=== PATIENT | male | born 1970 | race Caucasian/White ===

== ENCOUNTER 2023-06-17 14:09 | Emergency (ER) | payer MEDICARE, MEDICAID, SELFPAY ==
--- NOTE | ~2023-06-17 | XR_ITS ---
EXAMINATION: XR FOOT, RIGHT CLINICAL INFORMATION: Pain and swelling COMPARISON: None available. TECHNIQUE: AP, lateral, and oblique views of the right foot. FINDINGS: Diffuse soft tissue swelling about the forefoot. Bones are in normal anatomic alignment with no acute fracture or dislocation. No bony destructive lesions or erosions. No periosteal reaction. Calcaneal heel spurs at the attachment point of the plantar aponeurosis and Achilles tendon. XR/XR foot RT min 3V IMPRESSION: Diffuse soft tissue swelling but no acute bony abnormality.
--- NOTE | 2023-06-17 14:15 | ED_ITS ---
HPI - Extremity Injury (Lower) General Chief Complaint: General Medical Stated Complaint: R swollen ankle no inj Time Seen by Provider: 06/17/23 14:45 History of Present Illness HPI Narrative: patient complains of redness and swelling on the outside of the right foot that is developed over the past several days, he did have a small callus there He denies fever he denies any joint swelling, it is mildly painful to walk but he is able to walk on it no problem Related Data Previous Rx's Medication Instructions Recorded cephalexin 500 mg tablet 500 mg PO QID 7 days #28 tabs 06/17/23 doxycycline hyclate 100 mg capsule 100 mg PO BID 7 days #14 caps 06/17/23 Allergies Allergy/AdvReac Type Severity Reaction Status Date / Time No Known Allergies Allergy Verified 06/17/23 14:16 [facility] Past Medical History Source: nursing notes reviewed Social History Social History Advance Directives: No Advance Directives Information Provided: No Physical Exam Vital Signs: Vital Signs: Last Vital Signs Temp 98.0 F 06/17/23 14:17 Pulse 96 06/17/23 14:17 Resp 18 06/17/23 14:17 BP 129/71 06/17/23 14:17 Pulse Ox 97 06/17/23 14:17 O2 Del Method Room Air 06/17/23 14:17 BMI result Body Mass Index 29.2 general appearance no distress Head is normocephalic atraumatic Neck is supple Respiratory no distress Extremities full range of motion x4 including right foot the right foot on the lateral aspect of the foot has a small callus that is not fluctuant not discharging any fluid there is erythema over the lateral aspect of the foot that is warm, there is soft tissue swelling especially around the lateral aspect of the foot there is no obvious wound, there is full range of motion in toes and ankles, patient can bear weight Neuro no focal motor sensory deficits Course Course Course Narrative: RME: 53-year-old male with no significant past medical history presenting to the ED complaining of athletes foot to both feet x6 years & right lateral foot pain and swelling x 6 days. Ambulating w/limping gait. +tinea noted to toe nails on R foot. Lateral foot with swelling, erythema and ttp. NV intact XRs ordered Full HPI, ROS and PE to be performed by primary ED provider. X-ray of right foot showed soft tissue swelling but no evidence of infection or fracture or bony abnormality Patient with foot swelling and redness mostly on the lateral aspect of the foot with no evidence of abscess now no wound is treated with oral antibiotics and discharged Medications Administered Discontinued Medications Generic Name Dose Route Start Last Admin Trade Name Freq PRN Reason Stop Dose Admin Cephalexin HCl 500 mg 06/17/23 15:34 06/17/23 15:42 Cephalexin 500 Mg Capsule PO 06/17/23 15:35 500 mg ONCE ONE Administration Doxycycline Monohydrate 100 mg 06/17/23 15:35 06/17/23 15:42 Doxycycline Monohydrate 100 Mg Capsule PO 06/17/23 15:36 100 mg ONCE ONE Administration Discharge Plan Discharge Clinical Impression: Cellulitis Patient Disposition: Home, Self-Care Additional Instructions: we are treating a skin infection on her right foot with 2 antibiotics Keflex and doxycycline Return to the ER in 3 days for for wound check But should you develop worse pain and swelling, spreading redness, fever, any sign of worsening infection not controlled by antibiotic return to the ER immediately any time Prescriptions: New doxycycline hyclate 100 mg capsule 100 mg PO BID 7 Days Qty: 14 0RF cephalexin 500 mg tablet 500 mg PO QID 7 Days Qty: 28 0RF
[2023-06-17 14:17] VITALS: BP 129/71; PULSE 96; RESP 18; TEMP 36.7; O2SAT 97; BMI 29.2
[2023-06-17] MEDS: Doxycycline Monohydrate 100 MG CAPSULE PO (15:42)
[2023-06-17] MEDS: cephALEXin 500 MG CAPSULE PO (15:42)
--- NOTE | 2023-06-17 15:51 | PC.NURSE ---
pt medicated per MAR
== END 2023-06-17 16:04 | disposition home or self-care (01) ==
PROVIDERS: Emergency Provider Emergency Medicine
DX: L03.115 Cellulitis of right lower limb (principal); M25.471 Effusion, right ankle; M79.671 Pain in right foot; B35.3 Tinea pedis
CPT/HCPCS: 73630; 99282; 99283

== ENCOUNTER 2023-11-01 18:58 | Emergency (ER) | payer MEDICARE, MEDICAID, SELFPAY ==
[2023-11-01 19:24] VITALS: BP 120/58; PULSE 73; RESP 16; TEMP 37.1; O2SAT 99; BMI 29.1
--- NOTE | 2023-11-01 19:32 | ED_ITS ---
HPI - Extremity Problem General Chief complaint: Extremity Problem Stated complaint: right foot swollen,red and painful Time Seen by Provider: 11/01/23 19:25 Source: patient Mode of arrival: ambulatory Limitations: no limitations History of Present Illness HPI Narrative: 53-year-old male presents stating that he has an infection in his foot for the past 4 days. No known trauma. Reports redness, pain overlying the right big toe. No fevers, chills, numbness or tingling. He states this has happened to him before. Patient denies chest pain, shortness of breath, nausea, vomiting, abdominal pain, numbness, tingling, headache, vision changes, dizziness or weakness. No history of DVT or PE. No history of gout. Related Data Previous Rx's Medication Instructions Recorded cephalexin 500 mg tablet 500 mg PO QID 7 days #28 tabs 06/17/23 doxycycline hyclate 100 mg capsule 100 mg PO BID 7 days #14 caps 06/17/23 cephalexin 500 mg tablet 500 mg PO Q6H 10 days #40 tabs 11/01/23 doxycycline hyclate 100 mg capsule 100 mg PO BID 10 days #20 caps 11/01/23 prednisone 20 mg tablet 40 mg (2 x 20 mg) PO DAILY 5 days 11/01/23 #10 tabs Allergies Allergy/AdvReac Type Severity Reaction Status Date / Time No Known Allergies Allergy Verified 11/01/23 19:23 Review of Systems Review of Systems: Yes all other systems are reviewed and are negative [facility] Past Medical History Attestation statement: The following information was validated with the patient. Source: old records reviewed and nursing notes reviewed Social History Social History Advance Directives: No Advance Directives Information Provided: No Physical Exam Vital Signs: Vital Signs: Last Vital Signs Temp 98.8 F 11/01/23 19:24 Pulse 73 11/01/23 19:24 Resp 16 11/01/23 19:24 BP 120/58 L 11/01/23 19:24 Pulse Ox 99 11/01/23 19:24 O2 Del Method Room Air 11/01/23 19:24 BMI result Body Mass Index 29.1 vss Appearance: Alert.? Oriented X3.? No acute distress.? Head: Normocephalic, atraumatic, no step-offs or deformities Eyes: Pupils equal, round and reactive to light.? CVS: Pulses normal.? Respiratory: No respiratory distress. Skin: Skin warm and dry.? Normal skin color.? Normal skin turgor.? Extremities: No lower extremity edema.? No calf ttp. 5/5 strength to bilateral upper and lower extremities erythema and warmth overlying the right great toe, and the medial aspect of foot. 2+ dorsalis pedis, anterior tibialis and posterior tibialis pulses equal bilateral. Full range of motion to toes and ankles bilaterally. Normal sensation distally. No footdrop. No overt edema. Back: No midline tenderness, no C-spine tenderness, full range of motion, no CVA tenderness bilaterally Neuro: Oriented X 3.? No motor deficit.? No sensory deficit. AMbulatory steady gait normal cooridnation Medical Decision Making Medical Decision Making MDM Narrative: 53-year-old male presents convinced that he has an infection to his right foot. It started 4 days ago. No fevers, chills, numbness or tingling. Physical exam significant for erythema and warmth overlying the right great toe, and the medial aspect of foot. 2+ dorsalis pedis, anterior tibialis and posterior tibialis pulses equal bilateral. Full range of motion to toes and ankles bilaterally. Normal sensation distally. No footdrop. No overt edema. History and physical exam concerning for cellulitis versus gout. Unlikely arterial or venous occlusion. No signs of necrotizing infection, erysipelas. Unlikely acute threat to limb or neurovascular compromise Plan discharge patient from triage with antibiotics and prednisone as there is a likely diagnosis of gout superimposed. Differential Diagnosis Differential Diagnoses: The differential diagnosis associated with the presentation includes History and physical exam concerning for cellulitis versus gout. Unlikely arterial or venous occlusion. No signs of necrotizing infection, erysipelas. Unlikely acute threat to limb or neurovascular compromise Admission/Observation Consideration of admission/observation: Escalation of care including admission/observation considered Unlikely Tests considered The following testing was considered but not selected: No indication for x-ray no trauma, unlikely osteomyelitis. Prescription Management I considered prescription management with: Antibiotic Social Determinants Patient?s care significantly limited by Social Determinants of Health including: Other Social Determinant of Health Discharge Plan Discharge Clinical Impression: Cellulitis Patient Disposition: Home, Self-Care Instructions: Cellulitis (ED) Additional Instructions: Take your medications as prescribed. If you were prescribed antibiotics today, it is important that you take your medication to their entirety, do not skip any doses, do not finish them early. Follow-up with your primary care provider this week. Return to the emergency department with new or worsening symptoms. Such as fevers, chills, chest pain, shortness of breath, nausea, vomiting, dizziness, headache, vision changes, lethargy In case of emergency call 911 Prescriptions: New cephalexin 500 mg tablet 500 mg PO Q6H 10 Days Qty: 40 0RF doxycycline hyclate 100 mg capsule 100 mg PO BID 10 Days Qty: 20 0RF prednisone 20 mg tablet 40 mg PO DAILY 5 Days Qty: 10 0RF No Action doxycycline hyclate 100 mg capsule 100 mg PO BID 7 Days Qty: 14 0RF cephalexin 500 mg tablet 500 mg PO QID 7 Days Qty: 28 0RF Referrals: Physician,None [Primary Care Provider] - 2 days
[2023-11-01 19:39] VITALS: BP 120/58; PULSE 73; RESP 16; TEMP 37.1; O2SAT 99
== END 2023-11-01 19:40 | disposition home or self-care (01) ==
PROVIDERS: Emergency Provider Internal Medicine
DX: L03.115 Cellulitis of right lower limb (principal); R60.0 Localized edema; Z79.899 Other long term (current) drug therapy
CPT/HCPCS: 99282; 99283

== ENCOUNTER 2024-01-14 15:39 | Inpatient (IN) | payer MEDICARE, MEDICAID, SELFPAY ==
[2024-01-14 16:15] VITALS: BMI 26.6
[2024-01-14 16:32] LABS: MANUAL DIFF FLAG NO
[2024-01-14 16:34] LABS: Basophils Percent Auto 0.5 % (0-2); Eosinophils Absolute Auto 0.2 X10*3/uL (0.0-0.4); Eosinophils Percent Auto 2.6 % (0-4); Hematocrit 36.7 % (42.0-52.0); Hemoglobin 11.9 g/dl (14.0-18.0); Imm Gran Abs Auto 0.02 X10*3/uL (0.00-0.03); Imm Gran Pct Auto 0.3 % (0.0-0.4); Lymphocytes Absolute Auto 1.6 X10*3/uL (1.2-4.9); Lymphocytes Percent Auto 25.9 % (20-40); Mean Corpuscular HGB Conc 32.4 g/dl (31.0-36.0); Mean Corpuscular Hemoglobin 27.5 pg (27.0-33.0); Mean Corpuscular Volume 84.8 fL (80.0-98.0); Mean Platelet Volume 10.6 fL (9.4-12.4); Monocytes Absolute Auto 0.5 X10*3/uL (0.1-1.2); Monocytes Percent Auto 8.7 % (2-11); Neutrophils Absolute Auto 3.8 x10*3/uL (2.0-8.3); Platelet Count 214 X10*3/uL (160-400); Red Blood Count 4.33 X10*6/uL (4.60-5.80); Red Cell Distribution Width 15.2 % (11.0-16.0); White Blood Count 6.1 X10*3/uL (4.8-10.8)
[2024-01-14 16:39] VITALS: BP 149/76; PULSE 60; RESP 17; TEMP 36.8; O2SAT 99
[2024-01-14 16:45] VITALS: BP 149/76; PULSE 60; RESP 17; TEMP 36.8; O2SAT 99
--- NOTE | 2024-01-14 16:48 | PC.NURSE ---
Patient self presented to [facility] ED on a voluntary basis seeking assessment due to suicidal ideations with method of hanging self. The patient also reports heavy cocaine use with yesterday 01/13/24 being the last day he used. The patient states, I have money and I could go buy more coke but I'd rather get help . The patient also reports getting methadone from [facility] with his last dose being this morning. Methadone verification pending at this time. Upon assessment the patient denies auditory and visual hallucinations as well as denies homicidal ideations. The patient is calm, cooperative and pleasant with staff. The patient presents unkempt and disheveled. Thought process is organized and the patient answers assessment questions logically. Patient was changed over into hospital attire and belongings were inventoried by security and optical manufacturing technician. Belongings have been locked up. Patient was oriented to the unit and shown his room.
[2024-01-14 16:56] LABS: Alanine Aminotransferase 18 U/L (0-40); Albumin Level 4.2 g/dL (3.5-5.0); Alkaline Phosphatase 99 U/L (39-117); Anion Gap 13 (12-20); Aspartate Amino Transferase 26 U/L (5-37); Bilirubin Total 0.4 mg/dL (0.0-1.0); Blood Urea Nitrogen 12 mg/dL (9-16); Calcium 9.8 mg/dL (8.4-10.2); Carbon Dioxide 29 mmol/L (22-29); Chloride 105 mmol/L (96-108); Creatinine Clr Calc Pharmacy 84.7; Estimated Glomerular Filt Rate > 60; Ethanol < 10 mg/dL; Glucose Random 71 mg/dL (60-115); Potassium 2.9 mmol/L (3.3-5.1); Sodium 144 mmol/L (135-145); Total Protein 7.5 g/dL (6.5-8.0)
--- NOTE | 2024-01-14 16:59 | ECG_ITS ---
Test Reason : LOW POTASIUM Blood Pressure : / mmHG Vent. Rate : 052 BPM Atrial Rate : 052 BPM P-R Int : 112 ms QRS Dur : 106 ms QT Int : 502 ms P-R-T Axes : 076 077 067 degrees QTc Int : 466 ms Sinus bradycardia with Premature atrial complexes Otherwise normal ECG No previous ECGs available Referred By: Sanam Avalos Electronically Signed By:DIONTE DC MD
[2024-01-14] MEDS: Potassium Chloride Packet 20 MEQ PACKET 40 MEQ PO (17:15)
--- NOTE | 2024-01-14 17:25 | ED.PSYCH ---
HPI - Psych General Chief Complaint: Psychiatric Symptoms Stated Complaint: psych eval for hermila Time Seen by Provider: 01/14/24 16:01 Source: patient Mode of arrival: ambulatory Limitations: no limitations History of Present Illness HPI Narrative: Patient is a 53-year-old male who presents emergency department reporting suicidal ideations with a plan to hang himself. Denies any homicidal ideations, denies current auditory or visual hallucinations. He does admit to polysubstance use, states he has been using intranasal cocaine and taking his methadone. He denies any physical complaints at this time Related Data Home Medications ?Medication ?Instructions ?Recorded ?Confirmed diazepam 5 mg tablet 5 mg PO DAILY PRN anxiety 01/14/24 01/14/24 fluoxetine 40 mg capsule 40 mg PO QPM 01/14/24 01/14/24 olanzapine 20 mg tablet 20 mg PO DAILY 01/14/24 01/14/24 methadone 10 mg tablet 100 mg PO DAILY 01/15/24 01/15/24 Allergies Allergy/AdvReac Type Severity Reaction Status Date / Time No Known Allergies Allergy Verified 01/14/24 16:20 Review of Systems Review of Systems: Yes all other systems are reviewed and are negative [facility] Past Medical History Attestation statement: The following information was validated with the patient. Source: old records reviewed Social History Social History Smoked in Last 30 Days: Yes Use of substances other than those prescribed or required for medical reasons: Yes Substance Use Type: Crack/Cocaine Substance Use Frequency: Daily Last Used Substance: Days (ago) Any prior treatment program specific to substance use: No Advance Directives: No Advance Directives Information Provided: No Do you have a plan to hurt others: No Plan Physical Exam Vital Signs: Vital Signs: Last Vital Signs Temp 97.7 F 01/15/24 06:04 Pulse 54 01/15/24 06:04 Resp 18 01/15/24 06:04 BP 158/71 H 01/15/24 06:04 Pulse Ox 100 01/15/24 06:04 O2 Del Method Room Air 01/15/24 06:04 BMI result Body Mass Index 26.6 Appearance: Alert.?Oriented to person, place and time. No acute distress.?Normal affect. Eyes: Pupils equal, round and reactive to light.? ENT: Pharynx normal.?? Neck: Normal inspection.? Neck supple.?? CVS: Heart sounds normal. Bradycardia? Pulses normal.?? Respiratory: No respiratory distress.? Lung sounds clear to auscultation bilaterally?? Abdomen: Soft and non-tender. Normoactive bowel sounds. Skin: Skin warm and dry.? Normal skin color.? Extremities: No lower extremity edema.? Neuro: Moves all extremities spontaneously. Sensation intact bilaterally. CN II-XII intact. No focal neuro deficits. Ambulates with normal steady gait. Course Reevaluation(s) Reevaluation #1: Potassium placement completed, 4.1 on repeat with no additional electrolyte derangement no MYRON. At this time feel that he is medically cleared and can have care team evaluation for disposition planning given suicidal ideations with a plan Time: 23:16 Reevaluation #2: Physician observation continued. VS stable, no acute avents overnight, inpatient bed search, K repleted and normal. [facility] 1040am 01/15/24 Medications Administered Discontinued Medications Generic Name Dose Route Start Last Admin Trade Name Freq PRN Reason Stop Dose Admin Sodium Chloride 1,000 mls @ 999 mls/hr 01/14/24 17:00 01/14/24 22:47 Ns IV 01/14/24 18:00 Infused .Q1H1M [facility] Infusion Potassium Chloride 10 meq in 100 mls @ 100 mls/hr 01/14/24 17:00 01/14/24 23:05 Potassium Chloride/H20 IV 01/14/24 20:59 Infused Q1H [facility] Infusion Methadone HCl 100 mg 01/15/24 06:56 01/15/24 07:12 Methadone Hcl 20 Mg/2 Ml Oral.Conc PO 01/15/24 06:57 100 mg ONCE ONE Administration Potassium Chloride 40 meq 01/14/24 16:58 01/14/24 17:15 Potassium Chloride Packet 20 Meq Packet PO 01/14/24 16:59 40 meq ONCE ONE Administration Medical Decision Making Medical Decision Making MDM Narrative: Patient is a 53-year-old male who presents emergency department for evaluation of suicidal ideations with a plan. Patient is without any physical complaints. Serum labs were obtained for medical clearance; CBC is without leukocytosis, normocytic anemia that does not meet transfusion area, no thrombocytopenia. Chemistries revealing hypokalemia of 2.9, magnesium within normal range at 2.0. He admits to poor p.o. intake, stating he has only consumed a bag of potato chips over the past 3 days, denies nausea vomiting diarrhea. Patient to receive potassium chloride 40 mEq IV, 40 mEq p.o., and EKG to exclude acute changes. Otherwise no further electrolyte derangement, no MYRON, LFTs within normal range. Alcohol level nondetectable. ALARCON positive for methadone fentanyl and cocaine. He is noted to be bradycardic at rest, increases to 70s-80s upon movement and during ambulation; asymptomatic bradycardia. Differential Diagnosis Differential Diagnoses: The differential diagnosis associated with the presentation includes (Suicidal ideations, polysubstance use disorder, dehydration, electrolyte derangement,) Admission/Observation Consideration of admission/observation: Escalation of care including admission/observation considered Lab Data MDM Lab Attestation statement: I reviewed the patient's lab results. (See narrative above) 01/14/24 16:26 01/14/24 22:14 Labs: Lab Results 01/14/24 01/14/24 01/14/24 Range/Units 16:26 17:21 22:14 WBC 6.1 (4.8-10.8) X10*3/uL RBC 4.33 L (4.60-5.80) X10*6/uL Hgb 11.9 L (14.0-18.0) g/dl Hct 36.7 L (42.0-52.0) % MCV 84.8 (80.0-98.0) fL MCH 27.5 (27.0-33.0) pg MCHC 32.4 (31.0-36.0) g/dl RDW 15.2 (11.0-16.0) % Plt Count 214 (160-400) X10*3/uL MPV 10.6 (9.4-12.4) fL Immature Gran % (Auto) 0.3 (0.0-0.4) % Neut % (Auto) 62.0 (45-73) % Lymph % (Auto) 25.9 (20-40) % [place] % (Auto) 8.7 (2-11) % Eos % (Auto) 2.6 (0-4) % Baso % (Auto) 0.5 (0-2) % Lymph # (Auto) 1.6 (1.2-4.9) X10*3/uL [place] # (Auto) 0.5 (0.1-1.2) X10*3/uL Eos # (Auto) 0.2 (0.0-0.4) X10*3/uL Baso # (Auto) 0.0 (0.0-0.2) X10*3/uL Abs Immat Gran (auto) 0.02 (0.00-0.03) X10*3/uL Absolute Neuts (auto) 3.8 (2.0-8.3) x10*3/uL Absolute Nucleated RBC 0.000 (0.0-0.012) X10*3/uL Nucleated RBC % (auto) 0.0 (0.0-0.2) /100WBC Sodium 144 143 (135-145) mmol/L Potassium 2.9 L* 4.1 D (3.3-5.1) mmol/L Chloride 105 110 H (96-108) mmol/L Carbon Dioxide 29 24 (22-29) mmol/L Anion Gap 13 13 (12-20) BUN 12 11 (9-16) mg/dL Creatinine 1.02 0.92 (0.5-1.4) mg/dL Estim Creat Clear Calc 84.7 93.9 Estimated GFR > 60 > 60 Random Glucose 71 93 (60-115) mg/dL Calcium 9.8 8.9 D (8.4-10.2) mg/dL Magnesium 2.0 (1.6-2.6) mg/dL Total Bilirubin 0.4 (0.0-1.0) mg/dL AST 26 (5-37) U/L ALT 18 (0-40) U/L Alkaline Phosphatase 99 (39-117) U/L Total Protein 7.5 (6.5-8.0) g/dL Albumin 4.2 (3.5-5.0) g/dL Urine Color Dark Yellow Urine Appearance Clear Urine pH 5.5 (5.0-9.0) Ur Specific [place] >= 1.030 H (1.005-1.025) Urine Protein Trace (Neg-Trace) mg/dL Urine Glucose (UA) Negative (Negative) mg/dL Urine Ketones Negative (Negative) mg/dL Urine Blood Negative (Negative) Urine Nitrite Negative (Negative) Ur Leukocyte Esterase Negative (Negative) Urine Opiates Screen Not Detected (Not Detect) Ur Buprenorphine Scrn Not Detected (Not Detect) ng/mL Ur Oxycodone Screen Not Detected (Not Detect) ng/mL Urine Methadone Screen Positive H (Not Detect) ng/mL Urine Fentanyl Screen POSITIVE H (Not Detect) Ur Barbiturates Screen Not Detected (Not Detect) Ur Phencyclidine Scrn Not Detected (Not Detect) Ur Amphetamines Screen Not Detected (Not Detect) U Benzodiazepines Scrn Not Detected (Not Detect) Urine Cocaine Screen POSITIVE H (Not Detect) U Marijuana (THC) Screen Not Detected (Not Detect) Ethyl Alcohol < 10 mg/dL Independent Interpretation I performed an independent interpretation of an: EKG Interpretation: Rate: 52 Rhythm:? Sinus bradycardia with PACs Normal P waves.? Normal MERARI.?? Normal QRS complex.?? ST T wave :??No ST elevation, no ST depression, no T-wave inversion qTC:466 prior studies:? Not available for review The study has been interpreted contemporaneously by me. Discharge Plan Discharge Clinical Impression: Suicidal ideation, Acute hypokalemia Patient Disposition: Still a Patient Prescriptions: No Action fluoxetine 40 mg capsule 40 mg PO QPM olanzapine 20 mg tablet 20 mg PO DAILY diazepam 5 mg tablet 5 mg PO DAILY PRN (Reason: anxiety) methadone 10 mg Tablet 100 mg PO DAILY Interventions: [place]-Suicide Risk Severity Scale Last Done: 01/14/24 16:46 Print Language: Czech
[2024-01-14 17:35] LABS: Appearance Urine Clear; Color Urine Dark Yellow; Glucose Urine UA Negative (Negative); Leukocyte Esterase Urine Negative (Negative); Nitrite Urine Negative (Negative); PH 5.5 (5.0-9.0); Specific Gravity - Urine >= 1.030 (1.005-1.025); Urine Blood Negative (Negative); Urine Ketones Negative (Negative); Urine Protein Trace mg/dL (Neg-Trace)
--- NOTE | 2024-01-14 17:36 | PC.NURSE ---
Nursing Communication Patient was transfered to main ED from Psychiatric due to critical potassium level. Report was given face to face with RN prior to transfer. Oral potassium administered and EKG completed prior to transfer.
[2024-01-14] MEDS: Potassium Chloride/H20 10 MEQ/100 ML PIGGYBACK 100 MEQ IV ×4 (17:54→21:57)
[2024-01-14] MEDS: 0.9 % Sodium Chloride 1,000 ML 999 ML IV (17:58)
[2024-01-14 18:02] LABS: Amphetamine Screen Urine Not Detected (Not Detect); Barbiturates, Urine Not Detected (Not Detect); Benzodiazepines Screen Urine Not Detected (Not Detect); Buprenorphine Scr Not Detected (Not Detect); Cannabinoid Screen Urine Not Detected (Not Detect); Cocaine Screen Urine POSITIVE (Not Detect); Fentanyl, urine POSITIVE (Not Detect); Methadone Screen, Urine Positive (Not Detect); Opiate Screen Urine Not Detected (Not Detect); Oxycodone Screen Urine Not Detected (Not Detect); Phencyclidine Screen Urine Not Detected (Not Detect)
[2024-01-14 19:21] VITALS: BP 130/73; PULSE 47; RESP 15; TEMP 36.8; O2SAT 100
--- NOTE | 2024-01-14 19:47 | PC.NURSE ---
this rn assumed care of pt, pt resting in stretcher, no acute distress noted. second bag of potassium begun at this time. 1:1 sitter at bedside.
[2024-01-14 22:31] LABS: Anion Gap 13 (12-20); Blood Urea Nitrogen 11 mg/dL (9-16); Calcium 8.9 mg/dL (8.4-10.2); Carbon Dioxide 24 mmol/L (22-29); Chloride 110 mmol/L (96-108); Creatinine Clr Calc Pharmacy 93.9; Estimated Glomerular Filt Rate > 60; Glucose Random 93 mg/dL (60-115); Potassium 4.1 mmol/L (3.3-5.1); Sodium 143 mmol/L (135-145)
--- NOTE | 2024-01-14 23:06 | PC.NURSE ---
pt requesting food and drink, per provider it is okay. pt given sandwich and gingerale
--- NOTE | 2024-01-14 23:16 | PC.NURSE ---
report given to Lynnette in the POD
--- NOTE | 2024-01-14 23:58 | PC.NURSE ---
iv access removed at this time.
[2024-01-15 06:04] VITALS: BP 158/71; PULSE 54; RESP 18; TEMP 36.5; O2SAT 100
--- NOTE | 2024-01-15 06:23 | HE.PHANOTE ---
RE: METHADONE DOSING Last dose of 100 mg was given on 01/14/24 @0635 at [facility] per Karissa Yates RN.
--- NOTE | 2024-01-15 07:00 | PC.NURSE ---
Assumed care of patient at 0645. Patient is observed resting quietly in their bed. No signs of distress observed. Breathing is even and unlabored. Will continue plan of care.
[2024-01-15] MEDS: methADONE HCl 20 MG/2 ML ORAL.CONC 100 MG PO (07:12)
[2024-01-15] MEDS: OLANZapine 10 MG TABLET 20 MG PO (13:18)
[2024-01-15] MEDS: FLUoxetine HCl 20 MG CAPSULE 40 MG PO (13:18)
[2024-01-15 15:00] VITALS: BP 132/66; PULSE 54; RESP 16; TEMP 37.1; O2SAT 100; BMI 23.9
--- NOTE | 2024-01-15 17:26 | PC.ADMIT ---
Pt is a 53 y/o Czech speaking male admitted to from [facility] POD on a CV after self presenting to [facility] ED for SI with plan to hang himself. Pt is not previously known to CARE team. On arrival to unit pt stated he was informed he was going to [facility], and stated that he was informed in the ED that he would transfer there when a bed was available. Pt reported he receives his methadone at [facility] and stated his providers are there. Pt agreeable to signing in on a voluntary status after meeting with provider. Safety/skin check performed on arrival to the unit by and Latia TEAGUE. Pt polite and cooperative with safety check, however stated he was too tired to participate in admission assessment. Pt was oriented to the unit, given toiletries, completed a menu, and then returned to his room and fell asleep. Information taken from ED report. Pt was born and raised in [place], currently single, and lives alone. Pt?s mother 2 years ago, at which time he began to use Crack/Cocaine. Since that time pt has been using more and reported he uses Cocaine and Opioids, and is currently on Methadone. December was the 2 year anniversary of his mother?s and pt reported in ED he was ?high the entire month of December?. In ED pt was positive for Methadone, Fentanyl and Cocaine. As of recently pt has been spending time in the [place] using substances. Pt reported to ED that prior to arrival he had experienced VH in the [place] of someone or something watching him in the [place] and moving about from a distance. Pt also reported increased racing thoughts and poor sleep. Last reported psych admission was 10 years ago at [facility]. In ED pt had a Potassium of 2.9 on 01/13. Pt was given PO and IV replacement and repeat level was 4.1. Methadone was verified in ED at 100 mg and given in ED this morning.
[2024-01-16 08:00] VITALS: BP 129/69; PULSE 51; RESP 16; TEMP 37.1; O2SAT 100
[2024-01-16] MEDS: OLANZapine 10 MG TABLET 20 MG PO (08:20)
[2024-01-16] MEDS: methADONE HCl 10 MG TABLET 100 MG PO (08:21)
[2024-01-16 08:40] LABS: Estimated Average Glucose 108 mg/dL; Hemoglobin A1c % 5.4 % (<6.0)
[2024-01-16 08:50] LABS: Cholesterol 116 mg/dL (<200); HDL Cholesterol 41 mg/dL (>40); LDL Cholesterol Calculated 54 mg/dL (<100); Triglycerides 107 mg/dL (<150)
[2024-01-16 09:04] LABS: Free T4 (Free Thyroxine) 0.92 ng/dL (0.71-1.85); Thyroid Stimulating Hormone 2.16 uIU/mL (0.32-4.0)
[2024-01-16 09:15] LABS: Folate 4.8 ng/mL (> or = 4.0); Vitamin B12 258 pg/mL (200-900)
--- NOTE | 2024-01-16 09:46 | HO.PSYADMNOT ---
HPI Date of Service: 01/16/24 Chief Complaint: SI Sources of Information: patient interviewed, chart reviewed and crisis/core team assessment reviewed HPI Subjective Notes: Montes Warning and Conditional Voluntary Narrative: Patient is a 53-year-old male with history of schizoaffective disorder, depressive type, severe cocaine use disorder, dependence, opioid dependence on methadone, who presents for worsening depression and SI in the face of recently losing his housing, being off medication and substance abuse. Patient reports that on his medications, he does well. Patient reports that for the several weeks he has been partying using IV cocaine, during which time he stopped taking his medication, saying he did not feel like taking it. Patient reports not eating much since just focused on substance abuse and has lost about 60 lb. Until recently He has been living at his sister's however house got sold and for the past 4 days he has been homeless, [place]. Patient reports auditory hallucinations worsened as his depression and he started feeling suicidal so he self presented. Patient restarted on medications in the ED and says voices are now gone. Denies manic behaviors; reports sober from opiates for about a month; no alcohol abuse. Past Psychiatric History: Past psychiatric admission about 10 years ago Reports Prozac and Zyprexa treat his symptoms very well Medical Evaluation Reviewed: Yes [facility] Medical History (Updated 01/17/24 @ 19:10 by Christian Raymond MD) Opioid use disorder Cocaine use disorder Schizoaffective disorder, depressive type Family History: Deferred Social History: Patient now homeless; was living at his sister's but the house got sold Substance History: Started using cocaine about 2 years ago after his mother and has been using IV cocaine for the past several weeks; opioid addiction however sober for the past 4 weeks on methadone Trauma History: Deferred Diagnostics Vital Signs (24Hr): Vital Signs - 24 hr 01/15/24 15:00 Temperature 98.7 F Pulse Rate 54 Respiratory Rate 16 Blood Pressure 132/66 Pulse Oximetry 100 Oxygen Delivery Method Room Air BMI result Body Mass Index 23.9 Labs 01/14/24 16:26 01/14/24 22:14 Labs: Laboratory Results - last 48 hr 01/14/24 01/14/24 01/14/24 16:26 17:21 22:14 WBC 6.1 RBC 4.33 L Hgb 11.9 L Hct 36.7 L MCV 84.8 MCH 27.5 MCHC 32.4 RDW 15.2 Plt Count 214 MPV 10.6 Immature Gran % (Auto) 0.3 Neut % (Auto) 62.0 Lymph % (Auto) 25.9 [place] % (Auto) 8.7 Eos % (Auto) 2.6 Baso % (Auto) 0.5 Lymph # (Auto) 1.6 [place] # (Auto) 0.5 Eos # (Auto) 0.2 Baso # (Auto) 0.0 Abs Immat Gran (auto) 0.02 Absolute Neuts (auto) 3.8 Absolute Nucleated RBC 0.000 Nucleated RBC % (auto) 0.0 Sodium 144 143 Potassium 2.9 L* 4.1 D Chloride 105 110 H Carbon Dioxide 29 24 Anion Gap 13 13 BUN 12 11 Creatinine 1.02 0.92 Estim Creat Clear Calc 84.7 93.9 Estimated GFR > 60 > 60 Random Glucose 71 93 Estimat Average Glucose Hemoglobin A1c % Calcium 9.8 8.9 D Magnesium 2.0 Total Bilirubin 0.4 AST 26 ALT 18 Alkaline Phosphatase 99 Total Protein 7.5 Albumin 4.2 Triglycerides Cholesterol LDL Cholesterol, Calc HDL Cholesterol Vitamin B12 Folate TSH Free T4 Urine Color Dark Yellow Urine Appearance Clear Urine pH 5.5 Ur Specific [place] >= 1.030 H Urine Protein Trace Urine Glucose (UA) Negative Urine Ketones Negative Urine Blood Negative Urine Nitrite Negative Ur Leukocyte Esterase Negative Urine Opiates Screen Not Detected Ur Buprenorphine Scrn Not Detected Ur Oxycodone Screen Not Detected Urine Methadone Screen Positive H Urine Fentanyl Screen POSITIVE H Ur Barbiturates Screen Not Detected Ur Phencyclidine Scrn Not Detected Ur Amphetamines Screen Not Detected U Benzodiazepines Scrn Not Detected Urine Cocaine Screen POSITIVE H U Marijuana (THC) Screen Not Detected Ethyl Alcohol < 10 01/16/24 08:16 WBC RBC Hgb Hct MCV MCH MCHC RDW Plt Count MPV Immature Gran % (Auto) Neut % (Auto) Lymph % (Auto) [place] % (Auto) Eos % (Auto) Baso % (Auto) Lymph # (Auto) [place] # (Auto) Eos # (Auto) Baso # (Auto) Abs Immat Gran (auto) Absolute Neuts (auto) Absolute Nucleated RBC Nucleated RBC % (auto) Sodium Potassium Chloride Carbon Dioxide Anion Gap BUN Creatinine Estim Creat Clear Calc Estimated GFR Random Glucose Estimat Average Glucose 108 Hemoglobin A1c % 5.4 Calcium Magnesium 2.0 Total Bilirubin AST ALT Alkaline Phosphatase Total Protein Albumin Triglycerides 107 Cholesterol 116 LDL Cholesterol, Calc 54 HDL Cholesterol 41 Vitamin B12 258 Folate 4.8 TSH 2.16 Free T4 0.92 Urine Color Urine Appearance Urine pH Ur Specific [place] Urine Protein Urine Glucose (UA) Urine Ketones Urine Blood Urine Nitrite Ur Leukocyte Esterase Urine Opiates Screen Ur Buprenorphine Scrn Ur Oxycodone Screen Urine Methadone Screen Urine Fentanyl Screen Ur Barbiturates Screen Ur Phencyclidine Scrn Ur Amphetamines Screen U Benzodiazepines Scrn Urine Cocaine Screen U Marijuana (THC) Screen Ethyl Alcohol Meds/Allergies Meds Home Medications ?Medication ?Instructions ?Recorded ?Confirmed ?Type diazepam 5 mg tablet 5 mg PO DAILY PRN anxiety 01/14/24 01/14/24 History fluoxetine 40 mg capsule 40 mg PO QPM 01/14/24 01/14/24 History olanzapine 20 mg tablet 20 mg PO DAILY 01/14/24 01/14/24 History methadone 10 mg tablet 100 mg PO DAILY 01/15/24 01/15/24 History Allergies Allergies Allergy/AdvReac Type Severity Reaction Status Date / Time No Known Allergies Allergy Verified 01/14/24 16:20 Mental Status Exam Mental Status Exam Narrative: Pt is alert and oriented; behavior is quiet, cooperative, calm; patient is not in distress; dressed in casual attire, disheveled; mood is described as depressed and affect congruent, downcast; eye contact appropriate; Speech is little slow, a little soft; psychomotor retardation present; thought process is organized and goal directed; Thought content is on tx; otherwise pertinent to relevant topics and without any delusional content, paranoid ideations or grandiosity; SI resolved; no HI. Reports AH resolved and currently There is no evidence of perceptual disturbance. Patients insight and judgment impaired Assessment & Plan Assessment & Plan (1) Schizoaffective disorder, depressive type: Status: Acute Code(s): F25.1 - Schizoaffective disorder, depressive type (2) Cocaine use disorder: Status: Acute Code(s): F14.10 - Cocaine abuse, uncomplicated (3) Opioid use disorder: Status: Acute Code(s): F11.90 - Opioid use, unspecified, uncomplicated Plan Patient is a 53-year-old male with history of schizoaffective disorder, depressive type, severe cocaine use disorder, dependence, opioid dependence on methadone, who presents for worsening depression and SI in the face of recently losing his housing, being off medication and substance abuse. Patient reports that on his medications, he does well. Patient reports that for the several weeks he has been partying using IV cocaine, during which time he stopped taking his medication, saying he did not feel like taking it. Patient reports not eating much since just focused on substance abuse and has lost about 60 lb. Until recently He has been living at his sister's however house got sold and for the past 4 days he has been homeless, [place]. Patient reports auditory hallucinations worsened as his depression and he started feeling suicidal so he self presented. Patient restarted on medications in the ED and says voices are now gone. Denies manic behaviors; reports sober from opiates for about a month; no alcohol abuse. Formulations/clinical reasoning: Patient still depressed but SI resolved; AH now resolved since he is back on Zyprexa. Patient says that both fluoxetine and Zyprexa are sufficient for his symptoms; will continue them Plan: CV Q 15 minute checks Continue recently restarted fluoxetine 40 mg daily Continue recently restarted Zyprexa 20 mg q.h.s. Continue methadone PRNs Dispo planning; patient says he is interested in attending a program Patient educated on: diagnosis, medication risk/benefits and substance abuse Informed Consent: understands Reason for continued inpatient stay Substantial Risk for: rapid decompensation Statement Statement: I have reviewed the history and physical and performed a pertinent examination on my patient. No changes have occurred unless specified. If the History and Physical was not performed prior to admission, the Hospitalist's service will be consulted for completing the admission physical. Time Spent With Patient Time: Total time managing care of this patient today ____ minutes.
[2024-01-16 20:00] VITALS: BP 102/51; PULSE 56; RESP 16; TEMP 36.5; O2SAT 98
[2024-01-16] MEDS: FLUoxetine HCl 20 MG CAPSULE 40 MG PO (21:31)
[2024-01-16] MEDS: diazePAM 5 MG TABLET PO (21:33)
[2024-01-17 07:00] VITALS: BMI 24.6
[2024-01-17 08:00] VITALS: BP 131/78; PULSE 59; RESP 16; TEMP 36.4; O2SAT 98
[2024-01-17] MEDS: Folic Acid 1 MG TABLET PO (08:23)
[2024-01-17] MEDS: OLANZapine 10 MG TABLET 20 MG PO (08:23)
[2024-01-17] MEDS: Multivitamin TABLET 1 TAB PO (08:23)
[2024-01-17] MEDS: methADONE HCl 10 MG TABLET 100 MG PO (08:23)
[2024-01-17] MEDS: Thiamine HCL 100 MG TABLET PO (08:23)
--- NOTE | 2024-01-17 09:33 | HO.PSYCHPN ---
Subjective Subjective Date of Service: 01/17/24 Reason For Visit: SI Interim History: met with patient; discussed with team Patient reports that AH remains resolved; mood has improved. Patient remains isolative and lying in bed and keno writer discuss this and he said he is just resting, feeling tired after having been living outside for 4 days. He says he will start attending groups. Regarding patient's past, reports father committed suicide when he was 14 years old. Patient also has talked about his girlfriend which is challenging for him Mental Status Exam Mental Status Exam Narrative: Pt is alert and oriented; behavior is quiet, cooperative, calm; patient is not in distress; dressed in casual attire, unkempt but improved hygiene; mood is described as .. Okay. Good though affect congruent, downcast; eye contact appropriate; Speech is little slow, a little soft; still psychomotor retardation present; thought process is organized and goal directed; Thought content is on tx; otherwise pertinent to relevant topics and without any delusional content, paranoid ideations or grandiosity; no SI; no HI. No AH; does not appear to be internally preoccupied. Patients insight and judgment impaired but improving. Diagnostics Vital Signs (24Hr): Vital Signs - 24 hr 01/16/24 20:00 01/17/24 08:00 Temperature 97.7 F 97.5 F Pulse Rate 56 59 Respiratory Rate 16 16 Blood Pressure 102/51 L 131/78 Pulse Oximetry 98 98 Oxygen Delivery Method Room Air Room Air BMI result Body Mass Index 23.9 Labs 01/14/24 16:26 01/14/24 22:14 Labs: Laboratory Results - last 48 hr 01/16/24 08:16 Estimat Average Glucose 108 Hemoglobin A1c % 5.4 Magnesium 2.0 Triglycerides 107 Cholesterol 116 LDL Cholesterol, Calc 54 HDL Cholesterol 41 Vitamin B12 258 Folate 4.8 TSH 2.16 Free T4 0.92 Medications Medications Current Medications Acetaminophen (Acetaminophen 325 Mg Tablet) 650 mg PO Q6H PRN PRN Reason: Headache/Pain Mild Scale (1-3) Al Hydroxide/Mg Hydroxide (Magnesium Hydrox/Alum Hydrox 30 Ml Oral.Susp) 30 ml PO Q6H PRN PRN Reason: Heartburn/Nausea Diazepam (Diazepam 5 Mg Tablet) 5 mg PO DAILY PRN PRN Reason: anxiety Last Admin: 01/16/24 21:33 Dose: 5 mg Fluoxetine HCl (Fluoxetine Hcl 20 Mg Capsule) 40 mg PO BEDTIME [facility] Last Admin: 01/16/24 21:31 Dose: 40 mg Folic Acid (Folic Acid 1 Mg Tablet) 1 mg PO DAILY [facility] Last Admin: 01/17/24 08:23 Dose: 1 mg Hydroxyzine HCl (Hydroxyzine Hcl 25 Mg Tablet) 25 mg PO Q6H PRN PRN Reason: Anxiety Magnesium Hydroxide (Milk Of Magnesia 30 Ml Oral.Susp) 30 ml PO DAILY PRN PRN Reason: Constipation Methadone HCl (Methadone Hcl 10 Mg Tablet) 100 mg PO DAILY [facility] Last Admin: 01/17/24 08:23 Dose: 100 mg Multivitamins/Vitamin C (Multivitamin Tablet) 1 tab PO DAILY [facility] Last Admin: 01/17/24 08:23 Dose: 1 tab Olanzapine (Olanzapine 10 Mg Tablet) 20 mg PO DAILY [facility] Last Admin: 01/17/24 08:23 Dose: 20 mg Thiamine HCl (Thiamine Hcl 100 Mg Tablet) 100 mg PO DAILY [facility] Last Admin: 01/17/24 08:23 Dose: 100 mg Trazodone HCl (Trazodone Hcl 50 Mg Tablet) 50 mg PO BEDTIME [id number] PRN PRN Reason: Insomnia Allergies Allergies Allergy/AdvReac Type Severity Reaction Status Date / Time No Known Allergies Allergy Verified 01/14/24 16:20 Assessment & Plan Assessment & Plan (1) Schizoaffective disorder, depressive type: Status: Acute Code(s): F25.1 - Schizoaffective disorder, depressive type (2) Cocaine use disorder: Status: Acute Code(s): F14.10 - Cocaine abuse, uncomplicated (3) Opioid use disorder: Status: Acute Code(s): F11.90 - Opioid use, unspecified, uncomplicated Plan Patient is a 53-year-old male with history of schizoaffective disorder, depressive type, severe cocaine use disorder, dependence, opioid dependence on methadone, who presents for worsening depression and SI in the face of recently losing his housing, being off medication and substance abuse. Patient reports that on his medications, he does well. Patient reports that for the several weeks he has been partying using IV cocaine, during which time he stopped taking his medication, saying he did not feel like taking it. Patient reports not eating much since just focused on substance abuse and has lost about 60 lb. Until recently He has been living at his sister's however house got sold and for the past 4 days he has been homeless, [place]. Patient reports auditory hallucinations worsened as his depression and he started feeling suicidal so he self presented. Patient restarted on medications in the ED and says voices are now gone. Denies manic behaviors; reports sober from opiates for about a month; no alcohol abuse. Formulations/clinical reasoning: Patient still depressed but SI resolved; AH now resolved since he is back on Zyprexa. Patient says that both fluoxetine and Zyprexa are sufficient for his symptoms; will continue them Hospital course: 01/16 Patient reports that he is feeling better and in a good mood though affect remains downcast and patient isolative; agrees to start attending groups Plan: CV Q 15 minute checks Continue recently restarted fluoxetine 40 mg daily Continue recently restarted Zyprexa 20 mg q.h.s. Continue methadone PRNs Dispo planning; patient says he is interested in attending a program hx: father committed suicide when he was 14 years old. Patient educated on: diagnosis, medication risk/benefits and therapeutic strategies Informed Consent: understands Reason for continued inpatient stay Substantial Risk for: stable for discharge and rapid decompensation Time Spent With Patient Time: Total time managing care of this patient today ____ minutes.
[2024-01-17 20:00] VITALS: BP 125/58; PULSE 69; RESP 18; TEMP 36.7; O2SAT 95
[2024-01-17] MEDS: Acetaminophen 325 MG TABLET 650 MG PO (20:08)
[2024-01-17] MEDS: FLUoxetine HCl 20 MG CAPSULE 40 MG PO (20:08)
[2024-01-18 08:00] VITALS: BP 119/63; PULSE 87; RESP 16; TEMP 36.4; O2SAT 98
[2024-01-18] MEDS: Folic Acid 1 MG TABLET PO (08:17)
[2024-01-18] MEDS: Multivitamin TABLET 1 TAB PO (08:17)
[2024-01-18] MEDS: OLANZapine 10 MG TABLET 20 MG PO (08:17)
[2024-01-18] MEDS: methADONE HCl 10 MG TABLET 100 MG PO (08:17)
[2024-01-18] MEDS: Thiamine HCL 100 MG TABLET PO (08:17)
--- NOTE | 2024-01-18 08:41 | HO.PSYCHPN ---
Subjective Subjective Date of Service: 01/18/24 Reason For Visit: SI Interim History: Met with patient; discussed with team Patient reports that he is feeling much better and of note, affect is brighter. He says his mood is good, no voices any sleeping well. He is also very encouraged no he gained 5 lb this admission reminding senior underwriter that he would lost about 60 lb over the past months while embroiled in substance abuse. Patient is feeling more optimistic and would like to go to a treatment program after discharge. Mental Status Exam Mental Status Exam Narrative: Pt is alert and oriented; behavior is friendly, cooperative, calm; patient is not in distress; dressed in casual attire, unkempt but good hygiene; mood is described as good and affect congruent noticeably brighter; eye contact appropriate; Speech is regular rate, volume, prosody; no psychomotor retardation present; thought process is organized and goal directed; Thought content is on tx; otherwise pertinent to relevant topics and without any delusional content, paranoid ideations or grandiosity; no SI; no HI. No AH; does not appear to be internally preoccupied. Patients insight and judgment much improved, fair and adequate. Diagnostics Vital Signs (24Hr): Vital Signs - 24 hr 01/17/24 20:00 Temperature 98.0 F Pulse Rate 69 Respiratory Rate 18 Blood Pressure 125/58 L Pulse Oximetry 95 Oxygen Delivery Method Room Air BMI result Body Mass Index 24.6 Labs 01/14/24 16:26 01/14/24 22:14 Labs: Laboratory Results - last 48 hr 01/16/24 08:16 Magnesium 2.0 Triglycerides 107 Cholesterol 116 LDL Cholesterol, Calc 54 HDL Cholesterol 41 Vitamin B12 258 Folate 4.8 TSH 2.16 Free T4 0.92 Medications Medications Current Medications Acetaminophen (Acetaminophen 325 Mg Tablet) 650 mg PO Q6H PRN PRN Reason: Headache/Pain Mild Scale (1-3) Last Admin: 01/17/24 20:08 Dose: 650 mg Al Hydroxide/Mg Hydroxide (Magnesium Hydrox/Alum Hydrox 30 Ml Oral.Susp) 30 ml PO Q6H PRN PRN Reason: Heartburn/Nausea Diazepam (Diazepam 5 Mg Tablet) 5 mg PO DAILY PRN PRN Reason: anxiety Last Admin: 01/16/24 21:33 Dose: 5 mg Fluoxetine HCl (Fluoxetine Hcl 20 Mg Capsule) 40 mg PO BEDTIME [facility] Last Admin: 01/17/24 20:08 Dose: 40 mg Folic Acid (Folic Acid 1 Mg Tablet) 1 mg PO DAILY [facility] Last Admin: 01/18/24 08:17 Dose: 1 mg Hydroxyzine HCl (Hydroxyzine Hcl 25 Mg Tablet) 25 mg PO Q6H PRN PRN Reason: Anxiety Magnesium Hydroxide (Milk Of Magnesia 30 Ml Oral.Susp) 30 ml PO DAILY PRN PRN Reason: Constipation Methadone HCl (Methadone Hcl 10 Mg Tablet) 100 mg PO DAILY [facility] Last Admin: 01/18/24 08:17 Dose: 100 mg Multivitamins/Vitamin C (Multivitamin Tablet) 1 tab PO DAILY [facility] Last Admin: 01/18/24 08:17 Dose: 1 tab Olanzapine (Olanzapine 10 Mg Tablet) 20 mg PO DAILY [facility] Last Admin: 01/18/24 08:17 Dose: 20 mg Thiamine HCl (Thiamine Hcl 100 Mg Tablet) 100 mg PO DAILY [facility] Last Admin: 01/18/24 08:17 Dose: 100 mg Trazodone HCl (Trazodone Hcl 50 Mg Tablet) 50 mg PO BEDTIME [id number] PRN PRN Reason: Insomnia Allergies Allergies Allergy/AdvReac Type Severity Reaction Status Date / Time No Known Allergies Allergy Verified 01/14/24 16:20 Assessment & Plan Assessment & Plan (1) Schizoaffective disorder, depressive type: Status: Acute Code(s): F25.1 - Schizoaffective disorder, depressive type (2) Cocaine use disorder: Status: Acute Code(s): F14.10 - Cocaine abuse, uncomplicated (3) Opioid use disorder: Status: Acute Code(s): F11.90 - Opioid use, unspecified, uncomplicated Plan Patient is a 53-year-old male with history of schizoaffective disorder, depressive type, severe cocaine use disorder, dependence, opioid dependence on methadone, who presents for worsening depression and SI in the face of recently losing his housing, being off medication and substance abuse. Patient reports that on his medications, he does well. Patient reports that for the several weeks he has been partying using IV cocaine, during which time he stopped taking his medication, saying he did not feel like taking it. Patient reports not eating much since just focused on substance abuse and has lost about 60 lb. Until recently He has been living at his sister's however house got sold and for the past 4 days he has been homeless, [place]. Patient reports auditory hallucinations worsened as his depression and he started feeling suicidal so he self presented. Patient restarted on medications in the ED and says voices are now gone. Denies manic behaviors; reports sober from opiates for about a month; no alcohol abuse. Formulations/clinical reasoning: Patient still depressed but SI resolved; AH now resolved since he is back on Zyprexa. Patient says that both fluoxetine and Zyprexa are sufficient for his symptoms; will continue them Hospital course: 01/16 Patient reports that he is feeling better and in a good mood though affect remains downcast and patient isolative; agrees to start attending groups 01/17 Patient reports that he is feeling much better and of note, affect is brighter. He says his mood is good, no voices any sleeping well. He is also very encouraged no he gained 5 lb this admission reminding senior underwriter that he would lost about 60 lb over the past months while embroiled in substance abuse. Patient is feeling more optimistic and would like to go to a treatment program after discharge. Plan: CV Q 15 minute checks Continue recently restarted fluoxetine 40 mg daily Continue recently restarted Zyprexa 20 mg q.h.s. Continue methadone PRNs Dispo planning; patient says he is interested in attending a program hx: father committed suicide when he was 14 years old. Patient educated on: diagnosis, medication risk/benefits, substance abuse and therapeutic strategies Informed Consent: understands Reason for continued inpatient stay Substantial Risk for: stable for discharge Time Spent With Patient Time: Total time managing care of this patient today ____ minutes.
[2024-01-18 19:17] VITALS: BP 119/56; PULSE 92; TEMP 36.4; O2SAT 97
[2024-01-18] MEDS: FLUoxetine HCl 20 MG CAPSULE 40 MG PO (21:32)
[2024-01-19 08:00] VITALS: BP 135/67; PULSE 91; RESP 16; TEMP 36.9; O2SAT 98
--- NOTE | 2024-01-19 08:38 | P.PNPSI_ITS ---
Subjective Subjective Date of Service: 01/20/24 Reason For Visit: SI Subjective Notes: Conditional Voluntary Interim History: Pt reports sleeping and eating better. He denies SI/HI. He reports his mood is much better. Visible. no other concerns. Medication Compliance: Yes Side effects from medications: No Attending Groups: Intermittent Review of Systems Review of Systems Yes all other systems are reviewed and are negative Mental Status Exam Mental Status Exam Narrative: Pt is alert and oriented; behavior is friendly, cooperative, calm; patient is not in distress; dressed in casual attire, unkempt but good hygiene; mood is described as good and affect congruent noticeably brighter; eye contact appropriate; Speech is regular rate, volume, prosody; no psychomotor retardation present; thought process is organized and goal directed; Thought content is on tx; otherwise pertinent to relevant topics and without any delusional content, paranoid ideations or grandiosity; no SI; no HI. No AH; does not appear to be internally preoccupied. Patients insight and judgment much improved, fair and adequate. Diagnostics Vital Signs (24Hr): Vital Signs - 24 hr 01/18/24 19:17 Temperature 97.6 F Pulse Rate 92 Blood Pressure 119/56 L Pulse Oximetry 97 Oxygen Delivery Method Room Air BMI result Body Mass Index 24.6 Labs 01/14/24 16:26 01/14/24 22:14 Medications Medications Current Medications Acetaminophen (Acetaminophen 325 Mg Tablet) 650 mg PO Q6H PRN PRN Reason: Headache/Pain Mild Scale (1-3) Last Admin: 01/17/24 20:08 Dose: 650 mg Al Hydroxide/Mg Hydroxide (Magnesium Hydrox/Alum Hydrox 30 Ml Oral.Susp) 30 ml PO Q6H PRN PRN Reason: Heartburn/Nausea Diazepam (Diazepam 5 Mg Tablet) 5 mg PO DAILY PRN PRN Reason: anxiety Last Admin: 01/16/24 21:33 Dose: 5 mg Fluoxetine HCl (Fluoxetine Hcl 20 Mg Capsule) 40 mg PO BEDTIME BETTYE Last Admin: 01/18/24 21:32 Dose: 40 mg Folic Acid (Folic Acid 1 Mg Tablet) 1 mg PO DAILY BETTYE Last Admin: 01/18/24 08:17 Dose: 1 mg Hydroxyzine HCl (Hydroxyzine Hcl 25 Mg Tablet) 25 mg PO Q6H PRN PRN Reason: Anxiety Magnesium Hydroxide (Milk Of Magnesia 30 Ml Oral.Susp) 30 ml PO DAILY PRN PRN Reason: Constipation Methadone HCl (Methadone Hcl 10 Mg Tablet) 100 mg PO DAILY [facility] Last Admin: 01/18/24 08:17 Dose: 100 mg Multivitamins/Vitamin C (Multivitamin Tablet) 1 tab PO DAILY [facility] Last Admin: 01/18/24 08:17 Dose: 1 tab Olanzapine (Olanzapine 10 Mg Tablet) 20 mg PO DAILY [facility] Last Admin: 01/18/24 08:17 Dose: 20 mg Thiamine HCl (Thiamine Hcl 100 Mg Tablet) 100 mg PO DAILY [facility] Last Admin: 01/18/24 08:17 Dose: 100 mg Trazodone HCl (Trazodone Hcl 50 Mg Tablet) 50 mg PO BEDTIME MRX1 PRN PRN Reason: Insomnia Allergies Allergies Allergy/AdvReac Type Severity Reaction Status Date / Time No Known Allergies Allergy Verified 01/14/24 16:20 Assessment & Plan Assessment & Plan (1) Schizoaffective disorder, depressive type: Status: Acute Code(s): F25.1 - Schizoaffective disorder, depressive type (2) Cocaine use disorder: Status: Acute Code(s): F14.10 - Cocaine abuse, uncomplicated (3) Opioid use disorder: Status: Acute Code(s): F11.90 - Opioid use, unspecified, uncomplicated Plan Patient is a 53-year-old male with history of schizoaffective disorder, depressive type, severe cocaine use disorder, dependence, opioid dependence on methadone, who presents for worsening depression and SI in the face of recently losing his housing, being off medication and substance abuse. Patient reports that on his medications, he does well. Patient reports that for the several weeks he has been partying using IV cocaine, during which time he stopped taking his medication, saying he did not feel like taking it. Patient reports not eating much since just focused on substance abuse and has lost about 60 lb. Until recently He has been living at his sister's however house got sold and for the past 4 days he has been homeless, [place]. Patient reports auditory hallucinations worsened as his depression and he started feeling suicidal so he self presented. Patient restarted on medications in the ED and says voices are now gone. Denies manic behaviors; reports sober from opiates for about a month; no alcohol abuse. Formulations/clinical reasoning: Patient still depressed but SI resolved; AH now resolved since he is back on Zyprexa. Patient says that both fluoxetine and Zyprexa are sufficient for his symptoms; will continue them Hospital course: 01/16 Patient reports that he is feeling better and in a good mood though affect remains downcast and patient isolative; agrees to start attending groups 01/17 Patient reports that he is feeling much better and of note, affect is brighter. He says his mood is good, no voices any sleeping well. He is also very encouraged no he gained 5 lb this admission reminding aligner typewriter that he would lost about 60 lb over the past months while embroiled in substance abuse. Patient is feeling more optimistic and would like to go to a treatment program after discharge. 01/18 continue tx. Plan: CV Q 15 minute checks Continue recently restarted fluoxetine 40 mg daily Continue recently restarted Zyprexa 20 mg q.h.s. Continue methadone PRNs Dispo planning; patient says he is interested in attending a program hx: father committed suicide when he was 14 years old. Reason for continued inpatient stay Substantial Risk for: inability to function Time Spent With Patient Time: Total time managing care of this patient today ____ minutes.
[2024-01-19] MEDS: methADONE HCl 10 MG TABLET 100 MG PO (08:56)
[2024-01-19] MEDS: OLANZapine 10 MG TABLET 20 MG PO (08:58)
[2024-01-19] MEDS: Folic Acid 1 MG TABLET PO (08:58)
[2024-01-19] MEDS: Thiamine HCL 100 MG TABLET PO (08:58)
[2024-01-19] MEDS: Multivitamin TABLET 1 TAB PO (08:58)
[2024-01-19] MEDS: Magnesium Hydrox/Alum Hydrox 30 ML ORAL.SUSP PO (08:59)
[2024-01-19 20:00] VITALS: BP 125/60; PULSE 72; RESP 18; TEMP 36.6; O2SAT 98
[2024-01-19] MEDS: FLUoxetine HCl 20 MG CAPSULE 40 MG PO (20:43)
[2024-01-19] MEDS: diazePAM 5 MG TABLET PO (20:44)
[2024-01-20 08:00] VITALS: BP 127/74; PULSE 109; RESP 16; TEMP 36.4; O2SAT 96
[2024-01-20] MEDS: OLANZapine 10 MG TABLET 20 MG PO (08:33)
[2024-01-20] MEDS: Folic Acid 1 MG TABLET PO (08:33)
[2024-01-20] MEDS: methADONE HCl 10 MG TABLET 100 MG PO (08:33)
[2024-01-20] MEDS: Multivitamin TABLET 1 TAB PO (08:33)
[2024-01-20] MEDS: Thiamine HCL 100 MG TABLET PO (08:33)
--- NOTE | 2024-01-20 09:01 | HE.PHANOTE ---
RE METHADONE ORDER CHANGE METHADONE ORDER WAS ORIGINALLY ENTERED FOR [id number] TABLETS AND IT WAS NOT CHANGED ON PHARMACY END. DOSES OF TABLETS GIVEN 01/15-01/19 AND CORRECTED TO CONCENTRATED LIQUID METHADONE FOR NEXT DOSE ON 01/21/24.
--- NOTE | 2024-01-20 19:25 | P.PNPSI_ITS ---
Subjective Subjective Date of Service: 01/20/24 Reason For Visit: SI Interim History: Pt reports sleeping and eating better. He denies SI/HI. He reports his mood is much better. Visible. no other concerns. Review of Systems Review of Systems Yes all other systems are reviewed and are negative Mental Status Exam Mental Status Exam Narrative: Pt is alert and oriented; behavior is friendly, cooperative, calm; patient is not in distress; dressed in casual attire, unkempt but good hygiene; mood is described as good and affect congruent noticeably brighter; eye contact appropriate; Speech is regular rate, volume, prosody; no psychomotor retardation present; thought process is organized and goal directed; Thought content is on tx; otherwise pertinent to relevant topics and without any delusional content, paranoid ideations or grandiosity; no SI; no HI. No AH; does not appear to be internally preoccupied. Patients insight and judgment much improved, fair and adequate. Diagnostics Vital Signs (24Hr): Vital Signs - 24 hr 01/19/24 20:00 01/20/24 08:00 Temperature 97.9 F 97.5 F Pulse Rate 72 109 H Respiratory Rate 18 16 Blood Pressure 125/60 127/74 Pulse Oximetry 98 96 Oxygen Delivery Method Room Air Room Air BMI result Body Mass Index 24.6 Labs 01/14/24 16:26 01/14/24 22:14 Medications Medications Current Medications Acetaminophen (Acetaminophen 325 Mg Tablet) 650 mg PO Q6H PRN PRN Reason: Headache/Pain Mild Scale (1-3) Last Admin: 01/17/24 20:08 Dose: 650 mg Al Hydroxide/Mg Hydroxide (Magnesium Hydrox/Alum Hydrox 30 Ml Oral.Susp) 30 ml PO Q6H PRN PRN Reason: Heartburn/Nausea Last Admin: 01/19/24 08:59 Dose: 30 ml Diazepam (Diazepam 5 Mg Tablet) 5 mg PO DAILY PRN PRN Reason: anxiety Last Admin: 01/19/24 20:44 Dose: 5 mg Fluoxetine HCl (Fluoxetine Hcl 20 Mg Capsule) 40 mg PO BEDTIME BETTYE Last Admin: 01/19/24 20:43 Dose: 40 mg Folic Acid (Folic Acid 1 Mg Tablet) 1 mg PO DAILY [facility]TYE Last Admin: 01/20/24 08:33 Dose: 1 mg Hydroxyzine HCl (Hydroxyzine Hcl 25 Mg Tablet) 25 mg PO Q6H PRN PRN Reason: Anxiety Magnesium Hydroxide (Milk Of Magnesia 30 Ml Oral.Susp) 30 ml PO DAILY PRN PRN Reason: Constipation Methadone HCl (Methadone Hcl 20 Mg/2 Ml Oral.Conc) 100 mg PO DAILY [facility] Multivitamins/Vitamin C (Multivitamin Tablet) 1 tab PO DAILY [facility] Last Admin: 01/20/24 08:33 Dose: 1 tab Olanzapine (Olanzapine 10 Mg Tablet) 20 mg PO DAILY [facility] Last Admin: 01/20/24 08:33 Dose: 20 mg Thiamine HCl (Thiamine Hcl 100 Mg Tablet) 100 mg PO DAILY [facility] Last Admin: 01/20/24 08:33 Dose: 100 mg Trazodone HCl (Trazodone Hcl 50 Mg Tablet) 50 mg PO BEDTIME MRX1 PRN PRN Reason: Insomnia Allergies Allergies Allergy/AdvReac Type Severity Reaction Status Date / Time No Known Allergies Allergy Verified 01/14/24 16:20 Assessment & Plan Assessment & Plan (1) Schizoaffective disorder, depressive type: Status: Acute Code(s): F25.1 - Schizoaffective disorder, depressive type (2) Cocaine use disorder: Status: Acute Code(s): F14.10 - Cocaine abuse, uncomplicated (3) Opioid use disorder: Status: Acute Code(s): F11.90 - Opioid use, unspecified, uncomplicated Plan Patient is a 53-year-old male with history of schizoaffective disorder, depressive type, severe cocaine use disorder, dependence, opioid dependence on methadone, who presents for worsening depression and SI in the face of recently losing his housing, being off medication and substance abuse. Patient reports that on his medications, he does well. Patient reports that for the several weeks he has been partying using IV cocaine, during which time he stopped taking his medication, saying he did not feel like taking it. Patient reports not eating much since just focused on substance abuse and has lost about 60 lb. Until recently He has been living at his sister's however house got sold and for the past 4 days he has been homeless, [place]. Patient reports auditory hallucinations worsened as his depression and he started feeling suicidal so he self presented. Patient restarted on medications in the ED and says voices are now gone. Denies manic behaviors; reports sober from opiates for about a month; no alcohol abuse. Formulations/clinical reasoning: Patient still depressed but SI resolved; AH now resolved since he is back on Zyprexa. Patient says that both fluoxetine and Zyprexa are sufficient for his symptoms; will continue them Hospital course: 01/16 Patient reports that he is feeling better and in a good mood though affect remains downcast and patient isolative; agrees to start attending groups 01/17 Patient reports that he is feeling much better and of note, affect is brighter. He says his mood is good, no voices any sleeping well. He is also very encouraged no he gained 5 lb this admission reminding ad writer that he would lost about 60 lb over the past months while embroiled in substance abuse. Patient is feeling more optimistic and would like to go to a treatment program after discharge. 01/19 continue tx. Plan: CV Q 15 minute checks Continue recently restarted fluoxetine 40 mg daily Continue recently restarted Zyprexa 20 mg q.h.s. Continue methadone PRNs Dispo planning; patient says he is interested in attending a program hx: father committed suicide when he was 14 years old. Reason for continued inpatient stay Substantial Risk for: stable for discharge Time Spent With Patient Time: Total time managing care of this patient today ____ minutes.
[2024-01-20 20:00] VITALS: BP 122/70; PULSE 90; RESP 16; TEMP 36.4; O2SAT 98
[2024-01-21] MEDS: FLUoxetine HCl 20 MG CAPSULE 40 MG PO ×2 (01:28→20:08)
[2024-01-21] MEDS: Magnesium Hydrox/Alum Hydrox 30 ML ORAL.SUSP PO ×3 (02:32→20:08)
[2024-01-21] MEDS: Multivitamin TABLET 1 TAB PO (08:10)
[2024-01-21] MEDS: Thiamine HCL 100 MG TABLET PO (08:10)
[2024-01-21] MEDS: Folic Acid 1 MG TABLET PO (08:10)
[2024-01-21] MEDS: OLANZapine 10 MG TABLET 20 MG PO (08:10)
[2024-01-21] MEDS: methADONE HCl 20 MG/2 ML ORAL.CONC 100 MG PO (08:11)
[2024-01-21 08:24] VITALS: BP 137/71; PULSE 92; RESP 18; TEMP 36.9; O2SAT 98
--- NOTE | 2024-01-21 15:03 | HO.PSYCHPN ---
Subjective Subjective Date of Service: 01/21/24 Reason For Visit: SI Subjective Notes: Conditional Voluntary Medical Problems Affecting Mental Status: No Interim History: Stevo reports feeling improved. Denies perceptual alterations Denies thoughts for self harm Denies issues of concern today. Reports medications are effective and without SE today. Medication Compliance: Yes Side effects from medications: No Attending Groups: No Review of Systems Acute medical concerns: No Medical Review of Systems: unchanged Review of Systems Review of Systems Yes all other systems are reviewed and are negative Mental Status Exam Mental Status Exam Patient Appearance: Appropriate Patient Orientation: Person, Place, Time and Situation Level of Consciousness: Alert Patient Behavior: Appropriate, Talkative, Cooperative and Good Eye Contact Mood Description: Apprehensive Affect Description: Apprehensive Patient Cognition Impaired: No Ability to Follow Directions: Good Speech Pattern: Spontaneous Speech Memory Description: Intact Hallucinations: None Delusions: Not Present Thought Process: Intact Thought Content: positive for Intact Judgement: Good Diagnostics Vital Signs (24Hr): Vital Signs - 24 hr 01/20/24 20:00 01/21/24 08:24 Temperature 97.6 F 98.4 F Pulse Rate 90 92 Respiratory Rate 16 18 Blood Pressure 122/70 137/71 Pulse Oximetry 98 98 Oxygen Delivery Method Room Air Room Air BMI result Body Mass Index 24.6 Labs 01/14/24 16:26 01/14/24 22:14 Medications Medications Current Medications Acetaminophen (Acetaminophen 325 Mg Tablet) 650 mg PO Q6H PRN PRN Reason: Headache/Pain Mild Scale (1-3) Last Admin: 01/17/24 20:08 Dose: 650 mg Al Hydroxide/Mg Hydroxide (Magnesium Hydrox/Alum Hydrox 30 Ml Oral.Susp) 30 ml PO Q6H PRN PRN Reason: Heartburn/Nausea Last Admin: 01/21/24 09:18 Dose: 30 ml Diazepam (Diazepam 5 Mg Tablet) 5 mg PO DAILY PRN PRN Reason: anxiety Last Admin: 01/19/24 20:44 Dose: 5 mg Fluoxetine HCl (Fluoxetine Hcl 20 Mg Capsule) 40 mg PO BEDTIME BETTYE Last Admin: 01/21/24 01:28 Dose: 40 mg Folic Acid (Folic Acid 1 Mg Tablet) 1 mg PO DAILY [facility]TY[facility] Last Admin: 01/21/24 08:10 Dose: 1 mg Hydroxyzine HCl (Hydroxyzine Hcl 25 Mg Tablet) 25 mg PO Q6H PRN PRN Reason: Anxiety Magnesium Hydroxide (Milk Of Magnesia 30 Ml Oral.Susp) 30 ml PO DAILY PRN PRN Reason: Constipation Methadone HCl (Methadone Hcl 20 Mg/2 Ml Oral.Conc) 100 mg PO DAILY [facility] Last Admin: 01/21/24 08:11 Dose: 100 mg Multivitamins/Vitamin C (Multivitamin Tablet) 1 tab PO DAILY [facility] Last Admin: 01/21/24 08:10 Dose: 1 tab Olanzapine (Olanzapine 10 Mg Tablet) 20 mg PO DAILY [facility] Last Admin: 01/21/24 08:10 Dose: 20 mg Thiamine HCl (Thiamine Hcl 100 Mg Tablet) 100 mg PO DAILY [facility] Last Admin: 01/21/24 08:10 Dose: 100 mg Trazodone HCl (Trazodone Hcl 50 Mg Tablet) 50 mg PO BEDTIME MRX1 PRN PRN Reason: Insomnia Allergies Allergies Allergy/AdvReac Type Severity Reaction Status Date / Time No Known Allergies Allergy Verified 01/14/24 16:20 Assessment & Plan Assessment & Plan (1) Schizoaffective disorder, depressive type: Status: Acute Code(s): F25.1 - Schizoaffective disorder, depressive type (2) Cocaine use disorder: Status: Acute Code(s): F14.10 - Cocaine abuse, uncomplicated (3) Opioid use disorder: Status: Acute Code(s): F11.90 - Opioid use, unspecified, uncomplicated Plan Patient is a 53-year-old male with history of schizoaffective disorder, depressive type, severe cocaine use disorder, dependence, opioid dependence on methadone, who presents for worsening depression and SI in the face of recently losing his housing, being off medication and substance abuse. Patient reports that on his medications, he does well. Patient reports that for the several weeks he has been partying using IV cocaine, during which time he stopped taking his medication, saying he did not feel like taking it. Patient reports not eating much since just focused on substance abuse and has lost about 60 lb. Until recently He has been living at his sister's however house got sold and for the past 4 days he has been homeless, [place]. Patient reports auditory hallucinations worsened as his depression and he started feeling suicidal so he self presented. Patient restarted on medications in the ED and says voices are now gone. Denies manic behaviors; reports sober from opiates for about a month; no alcohol abuse. Formulations/clinical reasoning: Patient still depressed but SI resolved; AH now resolved since he is back on Zyprexa. Patient says that both fluoxetine and Zyprexa are sufficient for his symptoms; will continue them Hospital course: 01/16 Patient reports that he is feeling better and in a good mood though affect remains downcast and patient isolative; agrees to start attending groups 01/17 Patient reports that he is feeling much better and of note, affect is brighter. He says his mood is good, no voices any sleeping well. He is also very encouraged no he gained 5 lb this admission reminding chart writer that he would lost about 60 lb over the past months while embroiled in substance abuse. Patient is feeling more optimistic and would like to go to a treatment program after discharge. 01/19 continue tx. 01/20 continue tx. Plan: CV Q 15 minute checks Continue recently restarted fluoxetine 40 mg daily Continue recently restarted Zyprexa 20 mg q.h.s. Continue methadone PRNs Dispo planning; patient says he is interested in attending a program hx: father committed suicide when he was 14 years old. Informed Consent: understands Reason for continued inpatient stay Substantial Risk for: rapid decompensation Time Spent With Patient Time: Total time managing care of this patient today ____ minutes.
[2024-01-21 20:00] VITALS: BP 143/69; PULSE 85; RESP 18; TEMP 36.6; O2SAT 96
[2024-01-21] MEDS: diazePAM 5 MG TABLET PO (20:11)
[2024-01-22 08:00] VITALS: BP 125/56; PULSE 81; RESP 18; TEMP 36.8; O2SAT 100
[2024-01-22] MEDS: Thiamine HCL 100 MG TABLET PO (08:18)
[2024-01-22] MEDS: Multivitamin TABLET 1 TAB PO (08:18)
[2024-01-22] MEDS: methADONE HCl 20 MG/2 ML ORAL.CONC 100 MG PO (08:18)
[2024-01-22] MEDS: Folic Acid 1 MG TABLET PO (08:18)
[2024-01-22] MEDS: OLANZapine 10 MG TABLET 20 MG PO (08:18)
--- NOTE | 2024-01-22 09:42 | HO.PSYCHPN ---
Subjective Subjective Date of Service: 01/22/24 Reason For Visit: SI Interim History: met with patient; discussed with team Patient reports he is doing much better, good mood, optimistic, no SI, no voices. Patient expresses gratitude for help received on the unit and that he is relieved to learn he got into a program. Sleeping and eating well. No complaints and no requests Mental Status Exam Mental Status Exam Narrative: Pt is alert and oriented; behavior is friendly, cooperative, calm; patient is not in distress; dressed in casual attire, good hygiene; mood is described as good and affect congruent noticeably brighter; eye contact appropriate; Speech is regular rate, volume, prosody; no psychomotor retardation present; thought process is organized and goal directed; Thought content is on tx, aftercare; otherwise pertinent to relevant topics and without any delusional content, paranoid ideations or grandiosity; no SI; no HI. No AH; does not appear to be internally preoccupied. Patients insight and judgment fair and adequate. Diagnostics Vital Signs (24Hr): Vital Signs - 24 hr 01/21/24 20:00 01/22/24 08:00 Temperature 97.8 F 98.2 F Pulse Rate 85 81 Respiratory Rate 18 18 Blood Pressure 143/69 H 125/56 L Pulse Oximetry 96 100 Oxygen Delivery Method Room Air Room Air BMI result Body Mass Index 24.6 Labs 01/14/24 16:26 01/14/24 22:14 Medications Medications Current Medications Acetaminophen (Acetaminophen 325 Mg Tablet) 650 mg PO Q6H PRN PRN Reason: Headache/Pain Mild Scale (1-3) Last Admin: 01/17/24 20:08 Dose: 650 mg Al Hydroxide/Mg Hydroxide (Magnesium Hydrox/Alum Hydrox 30 Ml Oral.Susp) 30 ml PO Q6H PRN PRN Reason: Heartburn/Nausea Last Admin: 01/21/24 20:08 Dose: 30 ml Diazepam (Diazepam 5 Mg Tablet) 5 mg PO DAILY PRN PRN Reason: anxiety Last Admin: 01/21/24 20:11 Dose: 5 mg Fluoxetine HCl (Fluoxetine Hcl 20 Mg Capsule) 40 mg PO BEDTIME BETTYE Last Admin: 01/21/24 20:08 Dose: 40 mg Folic Acid (Folic Acid 1 Mg Tablet) 1 mg PO DAILY [facility]TYE Last Admin: 01/22/24 08:18 Dose: 1 mg Hydroxyzine HCl (Hydroxyzine Hcl 25 Mg Tablet) 25 mg PO Q6H PRN PRN Reason: Anxiety Magnesium Hydroxide (Milk Of Magnesia 30 Ml Oral.Susp) 30 ml PO DAILY PRN PRN Reason: Constipation Methadone HCl (Methadone Hcl 20 Mg/2 Ml Oral.Conc) 100 mg PO DAILY [facility] Last Admin: 01/22/24 08:18 Dose: 100 mg Multivitamins/Vitamin C (Multivitamin Tablet) 1 tab PO DAILY [facility] Last Admin: 01/22/24 08:18 Dose: 1 tab Olanzapine (Olanzapine 10 Mg Tablet) 20 mg PO DAILY [facility] Last Admin: 01/22/24 08:18 Dose: 20 mg Thiamine HCl (Thiamine Hcl 100 Mg Tablet) 100 mg PO DAILY [facility] Last Admin: 01/22/24 08:18 Dose: 100 mg Trazodone HCl (Trazodone Hcl 50 Mg Tablet) 50 mg PO BEDTIME MRX1 PRN PRN Reason: Insomnia Allergies Allergies Allergy/AdvReac Type Severity Reaction Status Date / Time No Known Allergies Allergy Verified 01/14/24 16:20 Assessment & Plan Assessment & Plan (1) Schizoaffective disorder, depressive type: Status: Acute Code(s): F25.1 - Schizoaffective disorder, depressive type (2) Cocaine use disorder: Status: Acute Code(s): F14.10 - Cocaine abuse, uncomplicated (3) Opioid use disorder: Status: Acute Code(s): F11.90 - Opioid use, unspecified, uncomplicated Plan Patient is a 53-year-old male with history of schizoaffective disorder, depressive type, severe cocaine use disorder, dependence, opioid dependence on methadone, who presents for worsening depression and SI in the face of recently losing his housing, being off medication and substance abuse. Patient reports that on his medications, he does well. Patient reports that for the several weeks he has been partying using IV cocaine, during which time he stopped taking his medication, saying he did not feel like taking it. Patient reports not eating much since just focused on substance abuse and has lost about 60 lb. Until recently He has been living at his sister's however house got sold and for the past 4 days he has been homeless, [place]. Patient reports auditory hallucinations worsened as his depression and he started feeling suicidal so he self presented. Patient restarted on medications in the ED and says voices are now gone. Denies manic behaviors; reports sober from opiates for about a month; no alcohol abuse. Formulations/clinical reasoning: Patient still depressed but SI resolved; AH now resolved since he is back on Zyprexa. Patient says that both fluoxetine and Zyprexa are sufficient for his symptoms; will continue them Hospital course: 01/16 Patient reports that he is feeling better and in a good mood though affect remains downcast and patient isolative; agrees to start attending groups 01/17 Patient reports that he is feeling much better and of note, affect is brighter. He says his mood is good, no voices any sleeping well. He is also very encouraged no he gained 5 lb this admission reminding race and sports book writer that he would lost about 60 lb over the past months while embroiled in substance abuse. Patient is feeling more optimistic and would like to go to a treatment program after discharge. 01/19 continue tx. 01/20 continue tx. 01/21 Patient reports he is doing much better, good mood, optimistic, no SI, no voices. Patient expresses gratitude for help received on the unit and that he is relieved to learn he got into a program. Sleeping and eating well. No complaints and no requests -continue current treatment plan and prepare for discharge Plan: CV Q 15 minute checks Continue recently restarted fluoxetine 40 mg daily Continue recently restarted Zyprexa 20 mg q.h.s. Continue methadone PRNs Dispo planning; patient says he is interested in attending a program hx: father committed suicide when he was 14 years old. Patient educated on: diagnosis, medication risk/benefits and substance abuse Informed Consent: understands Reason for continued inpatient stay Substantial Risk for: stable for discharge Time Spent With Patient Time: Total time managing care of this patient today ____ minutes.
[2024-01-22] MEDS: Magnesium Hydrox/Alum Hydrox 30 ML ORAL.SUSP PO ×2 (11:04→18:13)
[2024-01-22 20:00] VITALS: BP 128/66; PULSE 60; RESP 18; TEMP 36.8; O2SAT 98
[2024-01-22] MEDS: FLUoxetine HCl 20 MG CAPSULE 40 MG PO (20:47)
[2024-01-22] MEDS: diazePAM 5 MG TABLET PO (20:47)
[2024-01-23] MEDS: Magnesium Hydrox/Alum Hydrox 30 ML ORAL.SUSP PO ×2 (03:37→10:05)
[2024-01-23 08:00] VITALS: PULSE 73; RESP 18; TEMP 36.5; O2SAT 98
[2024-01-23] MEDS: methADONE HCl 20 MG/2 ML ORAL.CONC 100 MG PO (08:33)
[2024-01-23] MEDS: Multivitamin TABLET 1 TAB PO (08:33)
[2024-01-23] MEDS: Folic Acid 1 MG TABLET PO (08:34)
[2024-01-23] MEDS: Thiamine HCL 100 MG TABLET PO (08:34)
[2024-01-23] MEDS: OLANZapine 10 MG TABLET 20 MG PO (08:34)
[2024-01-23] MEDS: Acetaminophen 325 MG TABLET 650 MG PO (16:47)
--- NOTE | 2024-01-23 16:50 | HO.PSYCHPN ---
Subjective Subjective Date of Service: 01/23/24 Reason For Visit: SI Interim History: Met with patient; discussed with team Patient appreciative of help received and reports he continues to do well; complains of ongoing heartburn wants something besides Maalox. Some anxiety about going to new program but optimistic. Mental Status Exam Mental Status Exam Narrative: Pt is alert and oriented; behavior is friendly, cooperative, calm; patient is not in distress; dressed in casual attire, good hygiene; mood is described as good and affect congruent noticeably brighter; eye contact appropriate; Speech is regular rate, volume, prosody; no psychomotor retardation present; thought process is organized and goal directed; Thought content is on tx, aftercare; otherwise pertinent to relevant topics and without any delusional content, paranoid ideations or grandiosity; no SI; no HI. No AH; does not appear to be internally preoccupied. Patients insight and judgment fair and adequate. Diagnostics Vital Signs (24Hr): Vital Signs - 24 hr 01/22/24 20:00 01/23/24 08:00 Temperature 98.2 F 97.7 F Pulse Rate 60 73 Respiratory Rate 18 18 Blood Pressure 128/66 Pulse Oximetry 98 98 Oxygen Delivery Method Room Air Room Air BMI result Body Mass Index 24.6 Labs 01/14/24 16:26 01/14/24 22:14 Medications Medications Current Medications Acetaminophen (Acetaminophen 325 Mg Tablet) 650 mg PO Q6H PRN PRN Reason: Headache/Pain Mild Scale (1-3) Last Admin: 01/23/24 16:47 Dose: 650 mg Al Hydroxide/Mg Hydroxide (Magnesium Hydrox/Alum Hydrox 30 Ml Oral.Susp) 30 ml PO Q6H PRN PRN Reason: Heartburn/Nausea Last Admin: 01/23/24 10:05 Dose: 30 ml Diazepam (Diazepam 5 Mg Tablet) 5 mg PO DAILY PRN PRN Reason: anxiety Last Admin: 01/22/24 20:47 Dose: 5 mg Famotidine (Famotidine 20 Mg Tablet) 20 mg PO BIDWM BETTYE Fluoxetine HCl (Fluoxetine Hcl 20 Mg Capsule) 40 mg PO BEDTIME BETTYE Last Admin: 01/22/24 20:47 Dose: 40 mg Folic Acid (Folic Acid 1 Mg Tablet) 1 mg PO DAILY BETTYE Last Admin: 01/23/24 08:34 Dose: 1 mg Hydroxyzine HCl (Hydroxyzine Hcl 25 Mg Tablet) 25 mg PO Q6H PRN PRN Reason: Anxiety Magnesium Hydroxide (Milk Of Magnesia 30 Ml Oral.Susp) 30 ml PO DAILY PRN PRN Reason: Constipation Methadone HCl (Methadone Hcl 20 Mg/2 Ml Oral.Conc) 100 mg PO DAILY [facility] Last Admin: 01/23/24 08:33 Dose: 100 mg Multivitamins/Vitamin C (Multivitamin Tablet) 1 tab PO DAILY [facility] Last Admin: 01/23/24 08:33 Dose: 1 tab Olanzapine (Olanzapine 10 Mg Tablet) 20 mg PO DAILY [facility] Last Admin: 01/23/24 08:34 Dose: 20 mg Thiamine HCl (Thiamine Hcl 100 Mg Tablet) 100 mg PO DAILY [facility] Last Admin: 01/23/24 08:34 Dose: 100 mg Trazodone HCl (Trazodone Hcl 50 Mg Tablet) 50 mg PO BEDTIME MRX1 PRN PRN Reason: Insomnia Allergies Allergies Allergy/AdvReac Type Severity Reaction Status Date / Time No Known Allergies Allergy Verified 01/14/24 16:20 Assessment & Plan Assessment & Plan (1) Schizoaffective disorder, depressive type: Status: Acute Code(s): F25.1 - Schizoaffective disorder, depressive type (2) Cocaine use disorder: Status: Acute Code(s): F14.10 - Cocaine abuse, uncomplicated (3) Opioid use disorder: Status: Acute Code(s): F11.90 - Opioid use, unspecified, uncomplicated Plan Patient is a 53-year-old male with history of schizoaffective disorder, depressive type, severe cocaine use disorder, dependence, opioid dependence on methadone, who presents for worsening depression and SI in the face of recently losing his housing, being off medication and substance abuse. Patient reports that on his medications, he does well. Patient reports that for the several weeks he has been partying using IV cocaine, during which time he stopped taking his medication, saying he did not feel like taking it. Patient reports not eating much since just focused on substance abuse and has lost about 60 lb. Until recently He has been living at his sister's however house got sold and for the past 4 days he has been homeless, sleeping [place]. Patient reports auditory hallucinations worsened as his depression and he started feeling suicidal so he self presented. Patient restarted on medications in the ED and says voices are now gone. Denies manic behaviors; reports sober from opiates for about a month; no alcohol abuse. Formulations/clinical reasoning: Patient still depressed but SI resolved; AH now resolved since he is back on Zyprexa. Patient says that both fluoxetine and Zyprexa are sufficient for his symptoms; will continue them Hospital course: 01/16 Patient reports that he is feeling better and in a good mood though affect remains downcast and patient isolative; agrees to start attending groups 01/17 Patient reports that he is feeling much better and of note, affect is brighter. He says his mood is good, no voices any sleeping well. He is also very encouraged no he gained 5 lb this admission reminding chart writer that he would lost about 60 lb over the past months while embroiled in substance abuse. Patient is feeling more optimistic and would like to go to a treatment program after discharge. 01/19 continue tx. 01/20 continue tx. 01/21 Patient reports he is doing much better, good mood, optimistic, no SI, no voices. Patient expresses gratitude for help received on the unit and that he is relieved to learn he got into a program. Sleeping and eating well. No complaints and no requests -continue current treatment plan and prepare for discharge 01/22 patient remains doing well and ready for discharge to substance use treatment program; patient is stable, in good mood, and future oriented. He has not in imminent risk for harm to self or others and appropriate for discharge to the community. Plan: CV Q 15 minute checks Continue recently restarted fluoxetine 40 mg daily Continue recently restarted Zyprexa 20 mg q.h.s. Continue methadone PRNs Dispo planning; patient says he is interested in attending a program hx: father committed suicide when he was 14 years old. Patient educated on: diagnosis, medication risk/benefits and medical condition Informed Consent: understands Reason for continued inpatient stay Substantial Risk for: stable for discharge Time Spent With Patient Time: Total time managing care of this patient today ____ minutes.
--- NOTE | 2024-01-23 17:41 | P.DS_ITS ---
DS: Providers Provider Date of Service: 01/24/24 Date of admission: 01/15/24 14:39 Date of discharge: 01/24/24 Primary care physician: None Physician Attending physician on admission: Christian Raymond Attending physician on discharge: Christian Raymond DS: Diagnosis Discharge Diagnosis (1) Schizoaffective disorder, depressive type: Status: Acute (2) Cocaine use disorder: Status: Acute (3) Opioid use disorder: Status: Acute DS: Medications Discharge Medications Home Medications: Home Medications ?Medication ?Instructions ?Recorded ?Confirmed methadone 10 mg tablet 100 mg PO DAILY 01/15/24 01/15/24 Previous Rx's ?Medication ?Instructions ?Recorded diazepam 5 mg tablet 5 mg PO DAILY PRN anxiety 30 days 01/23/24 #30 tabs famotidine 20 mg tablet 20 mg PO BIDWM 30 days #60 tabs 01/23/24 fluoxetine 40 mg capsule 40 mg PO QPM 30 days #30 caps 01/23/24 olanzapine 20 mg tablet 20 mg PO DAILY 30 days #30 tabs 01/23/24 Mental Status Exam Mental Status Exam Narrative: Pt is alert and oriented; behavior is friendly, cooperative, calm; patient is not in distress; dressed in casual attire, good hygiene; mood is described as good and affect congruent noticeably brighter; eye contact appropriate; Speech is regular rate, volume, prosody; no psychomotor retardation present; thought process is organized and goal directed; Thought content is on tx, aftercare; otherwise pertinent to relevant topics and without any delusional content, paranoid ideations or grandiosity; no SI; no HI. No AH; does not appear to be internally preoccupied. Patients insight and judgment fair and adequate. DS: Summary Hospital Course Hospital Course: HPI: Patient is a 53-year-old male with history of schizoaffective disorder, depressive type, severe cocaine use disorder, dependence, opioid dependence on methadone, who presents for worsening depression and SI in the face of recently losing his housing, being off medication and substance abuse. Patient reports that on his medications, he does well. Patient reports that for the several weeks he has been partying using IV cocaine, during which time he stopped taking his medication, saying he did not feel like taking it. Patient reports not eating much since just focused on substance abuse and has lost about 60 lb. Until recently He has been living at his sister's however house got sold and for the past 4 days he has been homeless, [place]. Patient reports auditory hallucinations worsened as his depression and he started feeling suicidal so he self presented. Patient restarted on medications in the ED and says voices are now gone. Denies manic behaviors; reports sober from opiates for about a month; no alcohol abuse. Formulations/clinical reasoning: Patient still depressed but SI resolved; AH now resolved since he is back on Zyprexa. Patient says that both fluoxetine and Zyprexa are sufficient for his symptoms; will continue them Hospital course: On admission, pt depressed. Detoxed without incident. He was restarted on home medications; SI, AH soon cleared up once back on Zyprexa. Over next several days patient brightened, mood improved and he began to engage in milue, attending groups. Pt continued to report that he is feeling much better and he remained without AH and was eating and sleeping well. He is also very encouraged no he gained 5 lb this admission reminding mortgage loan underwriter that he would lost about 60 lb over the past months while embroiled in substance abuse. Patient is feeling optimistic and would like to go to a treatment program after discharge. He remained engaged in treatment, in good behavioral and impulse control throughout admission and was appropriate with peers and staff. Started on Famotadine for GERD to good effect. While he remains at risk for relapse and decompensation, these are chronic issues with which he is willing to engage. He is discharging to a supportive environment, stable, in good mood and future oriented. He has not in imminent risk for harm to self or others and appropriate for discharge to the community. Meds: fluoxetine 40 mg daily Zyprexa 20 mg q.h.s. Time spent discussing smoking cessation with patient: 3 to 10 minutes Status at Discharge Functional status at discharge: independent ambulation Overall status at discharge: patient is back to baseline Time Spent with Patient Time attestation: Total time managing care of this patient today __40__ minutes. Discharge Plan Discharge Anticipated Discharge Date/Time: 01/24/24 10:30 Patient Disposition: Home, Self-Care Discharge Diagnosis: Schizoaffective disorder, depressed type Referrals: Physician,None [Primary Care Provider] - 1 Week Discharge Medications: New famotidine 20 mg Tablet 20 mg PO BIDWM 30 Days Qty: 60 1RF Continued methadone 10 mg Tablet 100 mg PO DAILY fluoxetine 40 mg capsule 40 mg PO QPM 30 Days Qty: 30 1RF olanzapine 20 mg tablet 20 mg PO DAILY 30 Days Qty: 30 1RF diazepam 5 mg tablet 5 mg PO DAILY PRN (Reason: anxiety) 30 Days Qty: 30 0RF Discharge Orders: Discharge Order (Routine); Ordered 01/24/24 Ordered By: Christian Raymond Diet: Regular diet Activity on Discharge: As tolerated Stand Alone Forms: Patient Portal Discharge page, Community Support Print Language: [place] Care Plan Goals: Maintain mood and safe behaviors Take medications as prescribed Continue to pursue sobriety Practice coping skills Continue with outpatient providers and reach out to them as needed Health Concerns: Mood stability and behaviors Sobriety GERD Plan of Treatment: Follow up with your PCP, psychiatric provider and other outpatient providers regarding above concerns Take medications as prescribed Assessment: Risk assessment at time of discharge:? Patient was interviewed prior to discharge and found to be fully oriented and without any SI or HI. Patient has improved insight and judgment and wants to continue treatment. Patient is not in imminent risk of harm to self or others and has a safety plan that includes presenting to the closest ER or calling 911 if feeling unsafe.? Patient has been observed closely by nursing and unit staff throughout admission; patient has not engaged in any behaviors that suggest dangerousness to self or others and has demonstrated appropriate behaviors and impulse control
[2024-01-23] MEDS: Famotidine 20 MG TABLET PO (18:32)
[2024-01-23 20:00] VITALS: BP 134/65; PULSE 88; TEMP 36.9; O2SAT 96
[2024-01-23] MEDS: diazePAM 5 MG TABLET PO (20:14)
[2024-01-23] MEDS: FLUoxetine HCl 20 MG CAPSULE 40 MG PO (20:14)
[2024-01-24] MEDS: hydrOXYzine HCL 25 MG TABLET PO (02:38)
[2024-01-24] MEDS: traZODone HCL 50 MG TABLET PO (02:38)
[2024-01-24] MEDS: Magnesium Hydrox/Alum Hydrox 30 ML ORAL.SUSP PO (09:07)
[2024-01-24] MEDS: Thiamine HCL 100 MG TABLET PO (09:08)
[2024-01-24] MEDS: OLANZapine 10 MG TABLET 20 MG PO (09:08)
[2024-01-24] MEDS: methADONE HCl 20 MG/2 ML ORAL.CONC 100 MG PO (09:08)
[2024-01-24] MEDS: Folic Acid 1 MG TABLET PO (09:08)
[2024-01-24] MEDS: Famotidine 20 MG TABLET PO (09:08)
[2024-01-24] MEDS: Multivitamin TABLET 1 TAB PO (09:08)
[2024-01-24] MEDS: Naloxone HCl Nasal TAKE HOME 4 MG SPRAY 8 MG NOSTRILALT (09:08)
== END 2024-01-24 10:25 | disposition home or self-care (01) | DRG 885 ==
LOC: HO.ED 01-15 01:48 → HO.PM5 01-15 14:44
PROVIDERS: Nurse Practitioner Family; Admitting Provider Clinical Nurse Specialist Psychiatric/Mental Health, Adult; Emergency Provider Internal Medicine; Visit Provider Psychiatry & Neurology Psychiatry
DX: F25.1 Schizoaffective disorder, depressive type (principal); R45.851 Suicidal ideations; F11.20 Opioid dependence, uncomplicated; F14.20 Cocaine dependence, uncomplicated; E87.6 Hypokalemia; Z79.899 Other long term (current) drug therapy
CPT/HCPCS: 36415; 80048; 80053; 80061; 80307; 81003; 82607; 82746; 83036; 83735; 84439; 84443; 85025; 93005; 99285; J3480; S9485

== ENCOUNTER → 2024-01-14 16:59 | Outpatient (BNV) | payer MEDICARE, MEDICAID, SELFPAY | PROVIDERS: Emergency Provider Internal Medicine; Visit Provider Internal Medicine Cardiovascular Disease | DX: R00.1 Bradycardia, unspecified (principal) | CPT/HCPCS: 93010 ==

== ENCOUNTER → 2024-01-15 14:39 | Outpatient (BNV) | payer MEDICARE, MEDICAID, SELFPAY | PROVIDERS: Admitting Provider Clinical Nurse Specialist Psychiatric/Mental Health, Adult; Emergency Provider Internal Medicine; Visit Provider Psychiatry & Neurology Psychiatry | DX: F25.1 Schizoaffective disorder, depressive type (principal); F14.10 Cocaine abuse, uncomplicated; F11.90 Opioid use, unspecified, uncomplicated | CPT/HCPCS: 90792; 99231; 99232; 99239 ==

== ENCOUNTER 2024-01-26 11:00 | Emergency (ER) | payer MEDICARE, MEDICAID, SELFPAY ==
--- NOTE | 2024-01-26 | ECG_ITS ---
Test Reason : QTC EVAL Blood Pressure : / mmHG Vent. Rate : 079 BPM Atrial Rate : 079 BPM P-R Int : 110 ms QRS Dur : 094 ms QT Int : 428 ms P-R-T Axes : 074 074 059 degrees QTc Int : 490 ms Sinus rhythm with short [place] Prolonged QT Abnormal ECG When compared with ECG of 14-JAN-2024 17:29, Premature atrial complexes are no longer Present Vent. rate has increased BY 27 BPM Referred By: Generic ED Physician Electronically Signed By:MIGUEL WOOD
--- NOTE | ~2024-01-26 | US_ITS ---
EXAMINATION: US ABDOMEN LIMITED CLINICAL INFORMATION: Pain. Elevated LFTs. COMPARISON: None available. TECHNIQUE: Real-time imaging of the right upper quadrant abdominal viscera. FINDINGS: LIVER: Unremarkable. The liver is normal in size. The liver contour is normal. Parenchymal echogenicity is normal. No focal hepatic lesion. There is no intrahepatic biliary duct dilatation seen. GALLBLADDER: Gallbladder not seen. Patient unclear on history of cholecystectomy. No right upper quadrant contour change or fluid collection. COMMON BILE DUCT: Normal in caliber measuring 0.5 cm in diameter. US/US abdomen limited IMPRESSION: 1. Gallbladder not seen. Patient unclear on history of cholecystectomy. No right upper quadrant contour change or fluid collection. 2. No common bile duct dilatation.
--- NOTE | ~2024-01-26 | CT_ITS ---
EXAMINATION: CT ABDOMEN AND PELVIS WITHOUT CONTRAST CLINICAL INFORMATION: Elevated LFTs. Evaluate gallbladder. COMPARISON: Abdominal ultrasound done earlier the same day. TECHNIQUE: Multidetector volumetric imaging was performed from the superior aspect of the liver through the pubic symphysis. Sagittal and coronal reformatted images were obtained on the technologist's workstation. This CT examination was performed using dose optimization techniques as appropriate, variously including the following: *Automated exposure control *Adjustment of mA and/or kV according to patient size (this includes techniques or standardized protocols for targeted exams where dose is matched to indication/reason for exam; i.e. extremities or head) *Use of iterative reconstruction technique DLP: 442 mGy-cm. FINDINGS: LUNG BASES: The visualized lung bases are unremarkable. LIVER, GALLBLADDER, AND BILIARY TREE: The liver is normal in size, shape, and attenuation. No focal hepatic lesion or biliary ductal dilatation is present. Surgical clips in the gallbladder fossa, consistent with cholecystectomy. No extrahepatic biliary ductal dilatation. PANCREAS: Grossly unremarkable. No associated inflammatory change. SPLEEN: Unremarkable. ADRENAL GLANDS: Unremarkable. KIDNEYS AND URETERS: The kidneys are normal in size, shape, and attenuation. No hydronephrosis, hydroureter, or calculi seen. Hypodensities within the right upper pole and lateral left mid pole, consistent with simple cysts. Findings are not clinically significant and no dedicated follow-up imaging is recommended. No perinephric stranding. BLADDER: Nondistended and unremarkable. GASTROINTESTINAL TRACT: Significantly distended stomach with recently ingested debris. Lousjflq-rs-riiims stool throughout the colon, consistent with constipation. No significant bowel wall thickening or inflammatory change. Evaluation limited without IV or oral contrast. No small or large bowel obstruction. Appendix not identified; however, no right lower quadrant inflammatory change to suggest acute appendicitis. PERITONEAL CAVITY: No intra-abdominal free air or free fluid. ABDOMINAL WALL: No significant hernia is appreciated. LYMPH NODES: No significant lymphadenopathy; however, evaluation is limited without IV contrast. VASCULAR: No abdominal aortic dilatation. Scattered atherosclerotic calcifications. PELVIC VISCERA: The prostate and seminal vesicles are unremarkable. OSSEOUS STRUCTURES: No acute osseous abnormality. Degenerative disc disease and facet arthropathy throughout the lumbar spine. CT/CT abdomen pelvis wo IV con IMPRESSION: 1. Significantly distended stomach with recently ingested debris. Rjhvyxjc-ph-nltypy stool throughout the colon, consistent with constipation. No small or large bowel obstruction. Evaluation limited without IV or oral contrast. 2. Status post cholecystectomy. No intra or extrahepatic biliary ductal dilatation. Fleischner guidelines were followed.
[2024-01-26 11:05] VITALS: BP 132/63; PULSE 87; RESP 18; TEMP 36.4; O2SAT 97; BMI 25.2
--- NOTE | 2024-01-26 11:12 | ED_ITS ---
HPI - General Adult General Chief complaint: Psychiatric Symptoms Stated complaint: SI, hearing voices Time Seen by Provider: 01/26/24 11:12 Source: patient Mode of arrival: ambulatory Limitations: no limitations History of Present Illness ED Provider: Shweta Sumner PA-C HPI narrative: Patient is a 53 year old assigned male at with a history of schizoaffective disorder, cocaine use disorder, and opioid use disorder presenting to the emergency department today with auditory hallucinations and suicidal ideation. Patient states that he has been hearing more voices that are telling him to hurt himself. Patient states that this started after he stopped taking his medication. Patient denies any dizziness, lightheadedness, abdominal pain, nausea, vomiting, fever, chills, blurry vision, double vision, loss of vision, chest pain, difficulty breathing, shortness of breath, back pain, night sweats, pain with urination, increased urinary frequency, increased urinary urgency, blood in his urine or stool, syncope or a near syncopal episode, recent trauma or falls, bowel incontinence, bladder incontinence, or any other complaints at this time. Onset (ago): day(s) (3) Relieving factors: none Exacerbating factors: none Associated symptoms: denies other symptoms Treatments prior to arrival: none Related Data Home Medications ?Medication ?Instructions ?Recorded ?Confirmed methadone 10 mg tablet 100 mg PO DAILY 01/15/24 01/26/24 Previous Rx's ?Medication ?Instructions ?Recorded diazepam 5 mg tablet 5 mg PO DAILY PRN anxiety 30 days 01/23/24 #30 tabs famotidine 20 mg tablet 20 mg PO BIDWM 30 days #60 tabs 01/23/24 fluoxetine 40 mg capsule 40 mg PO QPM 30 days #30 caps 01/23/24 olanzapine 20 mg tablet 20 mg PO DAILY 30 days #30 tabs 01/23/24 Allergies Allergy/AdvReac Type Severity Reaction Status Date / Time No Known Allergies Allergy Verified 01/26/24 11:07 Review of Systems 2 Constitutional: Constitutional: Reports no additional constitutional complaints, Denies chills, Denies fever(s) and Denies night sweats Eyes: Eyes: Reports no additional eye complaints, Denies blurry vision, Denies change in vision, Denies diplopia, Denies eye discharge, Denies loss of vision and Denies eye pain ENT: Denies dizziness Cardiovascular: Cardiovascular: Reports no additional cardiovascular complaints, Denies chest pain, Denies lightheadedness, Denies Loss of Consciousness and Denies dyspnea Respiratory: Respiratory: Reports no additional respiratory complaints and Denies dyspnea Gastrointestinal: Gastrointestinal: Reports no additional gastrointestinal complaints, Denies abdominal pain, Denies melena, Denies hematochezia, Denies change in bowel habits and Denies change in stool character Genitourinary: Genitourinary: Reports no additional male genitourinary complaints, Denies hematuria, Denies oliguria, Denies difficulty urinating, Denies dysuria, Denies urinary frequency, Denies urinary hesitancy, Denies urinary incontinence and Denies urinary urgency Musculoskeletal: Musculoskeletal: Reports no additional musculoskeletal complaints, Denies numbness and Denies tingling Neurologic: Denies dizziness, Denies loss of vision, Denies numbness and Denies tingling Psychiatric: Psychiatric: Reports auditory hallucinations, Denies homicidal ideation and Reports suicidal ideation Endocrine: Endocrine: Reports no additional endocrine complaints Hematologic/Lymphatic: Hematologic/Lymphatic: Reports no additional hematologic/lymphatic complaints Allergic/Immunologic: Allergic/Immunologic: Reports no additional allergic/immunologic complaints PMFSH Past Medical History Attestation statement: The following information was validated with the patient. Source: old records reviewed and nursing notes reviewed Medical History Opioid use disorder Cocaine use disorder Schizoaffective disorder, depressive type Social History Social History Household Members: None Housing: House Patient Tobacco Use Status: Never used Tobacco Smoked in Last 30 Days: No Use of substances other than those prescribed or required for medical reasons: Yes Substance Use Type: Crack/Cocaine Substance Use Frequency: Chronic Longstanding Advance Directives: No Advance Directives Information Provided: Yes Do you have a plan to hurt others: No Plan service: No Sexual orientation: Decline to Answer Physical Exam ED Vital Signs: Vital Signs - 24 hr 01/26/24 11:05 01/26/24 11:28 Temperature 97.6 F Pulse Rate 87 Respiratory Rate 18 16 Blood Pressure 132/63 Pulse Oximetry 97 Oxygen Delivery Method Room Air BMI result Body Mass Index 25.2 Const General: cooperative, no acute distress, alert and awake Nutritional Appearance: well nourished Orientation/consciousness: patient oriented x3 Limitations: no limitations HENMT Head: Yes normal to inspection and Yes atraumatic Ears: hearing grossly normal bilaterally and external ears normal General nose exam: Normal external nose present, no nasal discharge noted and no epistaxis Face and sinus: Yes normal facial exam, No abrasion and No laceration Mouth: Normal oral and palatal mucosa present, no drooling and no muffled voice Eyes General: appearance normal, both eyes and all related structures Periorbital: periorbital findings normal Eyelids: Yes eyelids normal Conjunctivae: conjunctivae normal Pupils: Equal, round and reactive pupils present EOM: EOMs intact bilaterally Neck Neck: Yes normal visual inspection, Yes full ROM and Yes no lymphadenopathy Chest Chest palpation & inspection: normal inspection of the chest Resp Effort & Inspection: normal respiratory effort and able to speak in complete sentences GI Inspection: Yes normal to inspection Neuro General: patient oriented x3 and moves all extremities Cranial nerves: Yes Equal, round and reactive pupils present Cognition (Neuro): normal cognition Motor exam (neuro): 5/5 motor strength present throughout Sensory Exam: Normal double simultaneous stimulation for sensation Coordination: xdnsqy-fy-updi test normal Extrem General: Yes normal to inspection, Yes full ROM and Yes capillary refill normal Psych Appearance: grossly normal Mental Status: mental status grossly normal Attitude: Guarded attititude/behavior present Thought content: Suicidality present Medications Administered Generic Name Dose Route Start Last Admin Trade Name Freq PRN Reason Stop Dose Admin Methadone HCl 100 mg 01/26/24 14:00 01/26/24 14:57 Methadone Hcl 20 Mg/2 Ml Oral.Conc PO 100 mg DAILY BETTYE Administration Olanzapine 20 mg 01/26/24 13:45 01/26/24 14:56 Olanzapine 10 Mg Tablet PO 20 mg DAILY BETTYE Administration Medical Decision Making Medical Decision Making [facility] Narrative: Patient is a 53 year old assigned male at with a history of schizoaffective disorder, cocaine use disorder, and opioid use disorder presenting to the emergency department today with increased auditory hallucinations and suicidal ideation. Patient's physical exam was unremarkable. Patient's blood work showed elevated LFTs which is new for the patient but were otherwise unremarkable. Patient's urine showed no acute process. Patient's EKG was unremarkable. Given the patient's newly elevated LFTs, I obtained a RUQ US that showed no acute process but did not visualize the gallbladder. Patient confirmed he has had not ever had abdominal surgery. CT abd/pelvis showed constipation and a surgically absent gallbladder. Patient then confirmed that he did have his gallbladder removed due to gallstones. I explained my physical exam findings as well as all test results to the patient. I answered all questions asked by the patient. Patient's disposition will be determined after CARE evaluation. Patient should follow up with GI for elevated LFTs. Differential Diagnosis Differential Diagnoses: The differential diagnosis associated with the presentation includes Auditory hallucinations SI Elevated LFTs Admission/Observation Consideration of admission/observation: Escalation of care including admission/observation considered Patient's disposition will be determined after CARE team evaluation. Lab Data [facility] Lab Attestation statement: I reviewed the patient's lab results. My interpretation of these results are in the [facility] Rationale portion of this note. 01/26/24 11:21 01/26/24 11:21 Labs: Lab Results 01/26/24 01/26/24 Range/Units 11:20 11:21 WBC 10.4 (4.8-10.8) X10*3/uL RBC 4.69 (4.60-5.80) X10*6/uL Hgb 13.0 L (14.0-18.0) g/dl Hct 39.3 L (42.0-52.0) % MCV 83.8 (80.0-98.0) fL MCH 27.7 (27.0-33.0) pg MCHC 33.1 (31.0-36.0) g/dl RDW 16.8 H (11.0-16.0) % Plt Count 220 (160-400) X10*3/uL MPV 10.6 (9.4-12.4) fL Immature Gran % (Auto) 0.5 H (0.0-0.4) % Neut % (Auto) 83.8 H (45-73) % Lymph % (Auto) 8.4 L (20-40) % Schley % (Auto) 5.8 (2-11) % Eos % (Auto) 1.3 (0-4) % Baso % (Auto) 0.2 (0-2) % Lymph # (Auto) 0.9 L (1.2-4.9) X10*3/uL Schley # (Auto) 0.6 (0.1-1.2) X10*3/uL Eos # (Auto) 0.1 (0.0-0.4) X10*3/uL Baso # (Auto) 0.0 (0.0-0.2) X10*3/uL Abs Immat Gran (auto) 0.05 H (0.00-0.03) X10*3/uL Absolute Neuts (auto) 8.7 H (2.0-8.3) x10*3/uL Absolute Nucleated RBC 0.000 (0.0-0.012) X10*3/uL Nucleated RBC % (auto) 0.0 (0.0-0.2) /100WBC Smear Tech's Comments VERIFIED Sodium 143 (135-145) mmol/L Potassium 4.2 (3.3-5.1) mmol/L Chloride 104 (96-108) mmol/L Carbon Dioxide 27 (22-29) mmol/L Anion Gap 16 (12-20) BUN 18 H (9-16) mg/dL Creatinine 0.80 (0.5-1.4) mg/dL Estim Creat Clear Calc 108.0 Estimated GFR > 60 Random Glucose 103 (60-115) mg/dL Calcium 9.8 D (8.4-10.2) mg/dL Total Bilirubin 1.0 (0.0-1.0) mg/dL AST 67 H (5-37) U/L ALT 109 H (0-40) U/L Alkaline Phosphatase 151 H (39-117) U/L Total Protein 7.9 (6.5-8.0) g/dL Albumin 4.0 (3.5-5.0) g/dL Urine Color Dark Yellow Urine Appearance Clear Urine pH 5.5 (5.0-9.0) Ur Specific Jennings 1.025 (1.005-1.025) Urine Protein Trace (Neg-Trace) mg/dL Urine Glucose (UA) Negative (Negative) mg/dL Urine Ketones Negative (Negative) mg/dL Urine Blood Trace H (Negative) Urine Nitrite Negative (Negative) Ur Leukocyte Esterase Negative (Negative) Urine RBC 6-10 H (0-2) /HPF Urine WBC 0-5 (0-5) /HPF Ur Squamous Epith Cells 0-2 (0-2) /HPF Urine Bacteria None Seen (None Seen) Hyaline Casts 0-2 (0-2) /LPF Urine Opiates Screen POSITIVE H (Not Detect) Ur Buprenorphine Scrn Not Detected (Not Detect) ng/mL Ur Oxycodone Screen Not Detected (Not Detect) ng/mL Urine Methadone Screen Positive H (Not Detect) ng/mL Urine Fentanyl Screen POSITIVE H (Not Detect) Ur Barbiturates Screen Not Detected (Not Detect) Ur Phencyclidine Scrn Not Detected (Not Detect) Ur Amphetamines Screen Not Detected (Not Detect) U Benzodiazepines Scrn POSITIVE H (Not Detect) Urine Cocaine Screen POSITIVE H (Not Detect) U Marijuana (THC) Screen Not Detected (Not Detect) Ethyl Alcohol < 10 mg/dL Independent Interpretation I performed an independent interpretation of an: EKG, Ultrasound and CT Scan Interpretation: My interpretation is in agreement with the radiologist's impression of this imaging study. - EXAMINATION: US ABDOMEN LIMITED CLINICAL INFORMATION: Pain. Elevated LFTs. COMPARISON: None available. TECHNIQUE: Real-time imaging of the right upper quadrant abdominal viscera. FINDINGS: LIVER: Unremarkable. The liver is normal in size. The liver contour is normal. Parenchymal echogenicity is normal. No focal hepatic lesion. There is no intrahepatic biliary duct dilatation seen. GALLBLADDER: Gallbladder not seen. Patient unclear on history of cholecystectomy. No right upper quadrant contour change or fluid collection. COMMON BILE DUCT: Normal in caliber measuring 0.5 cm in diameter. US/US abdomen limited IMPRESSION: 1. Gallbladder not seen. Patient unclear on history of cholecystectomy. No right upper quadrant contour change or fluid collection. 2. No common bile duct dilatation. Dictated By: Alan Cao MD Signed By: Electronically signed by Alan Cao MD 01/26/24 1445 - EXAMINATION: CT ABDOMEN AND PELVIS WITHOUT CONTRAST CLINICAL INFORMATION: Elevated LFTs. Evaluate gallbladder. COMPARISON: Abdominal ultrasound done earlier the same day. TECHNIQUE: Multidetector volumetric imaging was performed from the superior aspect of the liver through the pubic symphysis. Sagittal and coronal reformatted images were obtained on the technologist's workstation. This CT examination was performed using dose optimization techniques as appropriate, variously including the following: *Automated exposure control *Adjustment of mA and/or kV according to patient size (this includes techniques or standardized protocols for targeted exams where dose is matched to indication/reason for exam; i.e. extremities or head) *Use of iterative reconstruction technique DLP: 442 mGy-cm. FINDINGS: LUNG BASES: The visualized lung bases are unremarkable. LIVER, GALLBLADDER, AND BILIARY TREE: The liver is normal in size, shape, and attenuation. No focal hepatic lesion or biliary ductal dilatation is present. Surgical clips in the gallbladder fossa, consistent with cholecystectomy. No extrahepatic biliary ductal dilatation. PANCREAS: Grossly unremarkable. No associated inflammatory change. SPLEEN: Unremarkable. ADRENAL GLANDS: Unremarkable. KIDNEYS AND URETERS: The kidneys are normal in size, shape, and attenuation. No hydronephrosis, hydroureter, or calculi seen. Hypodensities within the right upper pole and lateral left mid pole, consistent with simple cysts. Findings are not clinically significant and no dedicated follow-up imaging is recommended. No perinephric stranding. BLADDER: Nondistended and unremarkable. GASTROINTESTINAL TRACT: Significantly distended stomach with recently ingested debris. Wmzhknac-yd-fgvbcd stool throughout the colon, consistent with constipation. No significant bowel wall thickening or inflammatory change. Evaluation limited without IV or oral contrast. No small or large bowel obstruction. Appendix not identified; however, no right lower quadrant inflammatory change to suggest acute appendicitis. PERITONEAL CAVITY: No intra-abdominal free air or free fluid. ABDOMINAL WALL: No significant hernia is appreciated. LYMPH NODES: No significant lymphadenopathy; however, evaluation is limited without IV contrast. VASCULAR: No abdominal aortic dilatation. Scattered atherosclerotic calcifications. PELVIC VISCERA: The prostate and seminal vesicles are unremarkable. OSSEOUS STRUCTURES: No acute osseous abnormality. Degenerative disc disease and facet arthropathy throughout the lumbar spine. CT/CT abdomen pelvis wo IV con IMPRESSION: 1. Significantly distended stomach with recently ingested debris. Jexcbgvg-mm-egsdso stool throughout the colon, consistent with constipation. No small or large bowel obstruction. Evaluation limited without IV or oral contrast. 2. Status post cholecystectomy. No intra or extrahepatic biliary ductal dilatation. Fleischner guidelines were followed. Dictated By: Alan Cao MD Signed By: Electronically signed by Alan Cao MD 01/26/24 1558 Vent. Rate: 079 BPM Atrial Rate: 079 BPM P-R Int: 110 ms QRS Dur: 094 ms QT Int: 428 ms P-R-T Axes: 074 074 059 degrees QTc Int: 490 ms Sinus rhythm with short NM Prolonged QT Abnormal ECG When compared with ECG of 14-JAN-2024 17:29, Premature atrial complexes are no longer Present Vent. rate has increased BY 27 BPM DD/ 1106 Radiology Impression Discussion of test interpretation with radiology: I have reviewed the radiologist's reading. Discharge Plan Discharge Clinical Impression: Elevated LFTs, Suicidal ideation, Auditory hallucinations Patient Disposition: Still a Patient Prescriptions: No Action methadone 10 mg Tablet 100 mg PO DAILY famotidine 20 mg Tablet 20 mg PO BIDWM 30 Days Qty: 60 1RF fluoxetine 40 mg capsule 40 mg PO QPM 30 Days Qty: 30 1RF olanzapine 20 mg tablet 20 mg PO DAILY 30 Days Qty: 30 1RF diazepam 5 mg tablet 5 mg PO DAILY PRN (Reason: anxiety) 30 Days Qty: 30 0RF Interventions: Yell-Suicide Risk Severity Scale Last Done: 01/26/24 11:28 Print Language: Lithuanian
[2024-01-26 11:28] VITALS: RESP 16
[2024-01-26 11:29] LABS: Appearance Urine Clear; Color Urine Dark Yellow; Glucose Urine UA Negative (Negative); Leukocyte Esterase Urine Negative (Negative); Nitrite Urine Negative (Negative); PH 5.5 (5.0-9.0); Specific Gravity - Urine 1.025 (1.005-1.025); UMIC TRIGGER UACC YES; Urine Blood Trace (Negative); Urine Ketones Negative (Negative); Urine Protein Trace mg/dL (Neg-Trace)
[2024-01-26 11:30] LABS: Basophils Percent Auto 0.2 % (0-2); Eosinophils Absolute Auto 0.1 X10*3/uL (0.0-0.4); Eosinophils Percent Auto 1.3 % (0-4); Hematocrit 39.3 % (42.0-52.0); Imm Gran Abs Auto 0.05 X10*3/uL (0.00-0.03); Imm Gran Pct Auto 0.5 % (0.0-0.4); Lymphocytes Absolute Auto 0.9 X10*3/uL (1.2-4.9); Lymphocytes Percent Auto 8.4 % (20-40); MANUAL DIFF FLAG SCAN; Mean Corpuscular HGB Conc 33.1 g/dl (31.0-36.0); Mean Corpuscular Hemoglobin 27.7 pg (27.0-33.0); Mean Corpuscular Volume 83.8 fL (80.0-98.0); Monocytes Absolute Auto 0.6 X10*3/uL (0.1-1.2); Monocytes Percent Auto 5.8 % (2-11); Neutrophils Absolute Auto 8.7 x10*3/uL (2.0-8.3); Neutrophils Percent Auto 83.8 % (45-73); PLT CLUMP 1; Red Blood Count 4.69 X10*6/uL (4.60-5.80); Red Cell Distribution Width 16.8 % (11.0-16.0); SCAN SMEAR FLAG 1
--- NOTE | 2024-01-26 11:36 | PC.NURSE ---
Patient comes in today after experiencing SI thoughts with a plan to hang himself. He is also reporting auditory/visual/tactile hallucinations that have been consistent over the past two weeks. Patient was just admitted here recently (within the last week) and stayed up on M5. Upon discharge, patient stopped taking his medications and subsequently decompensated. Patient is reporting frequent auditory hallucinations telling him to kill himself. Patient appears calm and cooperative, help seeking. Patient is alert and oriented x4, respirations even and unlabored, skin pwd, malodorous. Patient familiar with process here in [facility] pod, microsoft exchange architect complete, patient now showering. Pending CARE eval at this time
[2024-01-26 11:38] LABS: Amphetamine Screen Urine Not Detected (Not Detect); Barbiturates, Urine Not Detected (Not Detect); Benzodiazepines Screen Urine POSITIVE (Not Detect); Buprenorphine Scr Not Detected (Not Detect); Cannabinoid Screen Urine Not Detected (Not Detect); Cocaine Screen Urine POSITIVE (Not Detect); Fentanyl, urine POSITIVE (Not Detect); Methadone Screen, Urine Positive (Not Detect); Opiate Screen Urine POSITIVE (Not Detect); Oxycodone Screen Urine Not Detected (Not Detect); Phencyclidine Screen Urine Not Detected (Not Detect)
[2024-01-26 11:40] LABS: Bacteria Urine None Seen (None Seen); Hyaline Casts Urine 0-2 /LPF (0-2); Squamous Epithelial Cell Urine 0-2 /HPF (0-2); WBC Urine 0-5 /HPF (0-5)
[2024-01-26 11:47] LABS: Mean Platelet Volume 10.6 fL (9.4-12.4); Platelet Count 220 X10*3/uL (160-400); SLIDE REVIEW VERIFIED; White Blood Count 10.4 X10*3/uL (4.8-10.8)
[2024-01-26 11:49] LABS: Ethanol < 10 mg/dL
[2024-01-26 11:50] LABS: Alanine Aminotransferase 109 U/L (0-40); Alkaline Phosphatase 151 U/L (39-117); Anion Gap 16 (12-20); Aspartate Amino Transferase 67 U/L (5-37); Blood Urea Nitrogen 18 mg/dL (9-16); Calcium 9.8 mg/dL (8.4-10.2); Carbon Dioxide 27 mmol/L (22-29); Chloride 104 mmol/L (96-108); Estimated Glomerular Filt Rate > 60; Glucose Random 103 mg/dL (60-115); Potassium 4.2 mmol/L (3.3-5.1); Sodium 143 mmol/L (135-145); Total Protein 7.9 g/dL (6.5-8.0)
--- NOTE | 2024-01-26 13:27 | HE.PHANOTE ---
RE METHADONE PT RECE[place] 100 [place] [facility] [place] . LAST DOSED 01/23/24 @0833. PER HO GORDON, THIS WAS LAST DOSE. SEAN
--- NOTE | 2024-01-26 13:48 | PHA.MEDREC ---
Pharmacy Consult ? Medication Reconciliation Pharmacy has completed the medication reconciliation.PHARMACY HAS REVIEWED MED REC DONE BY NURSING. UTILIZED DISCHARGE LIST FROM 01/24/24.
--- NOTE | 2024-01-26 13:51 | PC.NURSE ---
Patient's LFTs appear to be elevated patient denies drinking alcohol, denies RUQ pain. Aware of plan for blood work and ultrasound
[2024-01-26] MEDS: OLANZapine 10 MG TABLET 20 MG PO (14:56)
[2024-01-26] MEDS: methADONE HCl 20 MG/2 ML ORAL.CONC 100 MG PO (14:57)
[2024-01-26] MEDS: Famotidine 20 MG TABLET PO (16:28)
[2024-01-26] MEDS: FLUoxetine HCl 20 MG CAPSULE 40 MG PO (16:28)
[2024-01-27 05:49] VITALS: BP 97/57; PULSE 63; RESP 16; TEMP 36.4; O2SAT 98
--- NOTE | 2024-01-27 08:44 | PC.NURSE ---
Assumed care of patient at 0645, patient appears to be in no apparent distress, ambulating with steady gait, requesting food and drink frequently. Aware of plan of care for dual dx bedsearch
[2024-01-27] MEDS: methADONE HCl 20 MG/2 ML ORAL.CONC 100 MG PO (08:54)
[2024-01-27] MEDS: OLANZapine 10 MG TABLET 20 MG PO (08:54)
[2024-01-27] MEDS: Famotidine 20 MG TABLET PO ×2 (08:54→16:12)
[2024-01-27] MEDS: diazePAM 5 MG TABLET PO (09:08)
--- NOTE | 2024-01-27 13:38 | MHC.CARE ---
CARE team completed reassessment, pt continues to meet criteria for dual diagnosis inpatient LOC and will remain in ED pending placement.
[2024-01-27 14:00] VITALS: RESP 14
[2024-01-27] MEDS: FLUoxetine HCl 20 MG CAPSULE 40 MG PO (16:12)
[2024-01-27] MEDS: Calcium Carbonate 750 MG TAB.CHEW 1500 MG PO (18:05)
--- NOTE | 2024-01-27 19:07 | PC.NURSE ---
patient appears to be relaxing in common seating area chatting with peers, appears in no distress
[2024-01-27 19:45] VITALS: BP 110/59; PULSE 78; RESP 16; TEMP 36.4; O2SAT 99
[2024-01-28 04:16] LABS: HBS Num1 0.24 mIU/mL (0-7.99); HBc Num1 0.43 S/CO (0.00-0.79); HBsAGNum1 0.26 S/CO (0.00-0.99); Hepatitis A Antibody IgM 0.17 Index (0-0.79); Hepatitis B Core Antibody Nonreactive (Nonreactive); Hepatitis B Surface Antigen Negative (Negative); ~HepC Num1 0.16 S/CO (0.00-0.79); ~Hepatitis A Antibody IgM Nonreactive (Nonreactive); ~Hepatitis B Surface Antibody NONREACTIVE (Nonreactive); ~Hepatitis C Antibody Nonreactive (Nonreactive)
[2024-01-28 06:13] VITALS: BP 100/57; PULSE 64; TEMP 36.2; O2SAT 99
[2024-01-28] MEDS: Famotidine 20 MG TABLET PO ×2 (07:58→16:32)
[2024-01-28] MEDS: OLANZapine 10 MG TABLET 20 MG PO (08:00)
[2024-01-28] MEDS: methADONE HCl 20 MG/2 ML ORAL.CONC 100 MG PO (08:00)
[2024-01-28] MEDS: diazePAM 5 MG TABLET PO (09:08)
--- NOTE | 2024-01-28 10:17 | PC.NURSE ---
Pt alert and answering questions, pleasant, calm and cooperative. Breathing even and unlabored. Interactive in TV area. Denies any pain at this time. Asks for food frequently.
--- NOTE | 2024-01-28 15:54 | MHC.CARE ---
[facility] accepting for tomorrow Accepting Dr juanjo PERSON 12am N2N is [phone]
[2024-01-28] MEDS: FLUoxetine HCl 20 MG CAPSULE 40 MG PO (16:32)
[2024-01-28 16:40] VITALS: BP 100/58; PULSE 64; RESP 16; TEMP 36.4; O2SAT 98
--- NOTE | 2024-01-28 19:01 | PC.NURSE ---
patient appears at rest in community area social w peers eating sandwiches patient appears in no distress.
--- NOTE | 2024-01-29 07:07 | PC.NURSE ---
Assumed care of patient at 0645. Patient is observed resting in the milieu. No signs of distress observed. Will continue plan of care.
[2024-01-29] MEDS: Famotidine 20 MG TABLET PO (08:11)
[2024-01-29] MEDS: methADONE HCl 20 MG/2 ML ORAL.CONC 100 MG PO (08:11)
[2024-01-29] MEDS: OLANZapine 10 MG TABLET 20 MG PO (08:11)
[2024-01-29 11:25] VITALS: BP 103/58; PULSE 66; RESP 14; TEMP 36.4; O2SAT 96
[2024-01-29 11:27] VITALS: BP 103/58; PULSE 66; RESP 14; TEMP 36.4; O2SAT 96
== END 2024-01-29 11:27 ==
PROVIDERS: Emergency Medicine Emergency Medical Services; Physician Assistant Medical; Emergency Provider Emergency Medicine; PCP Internal Medicine
DX: F25.1 Schizoaffective disorder, depressive type (principal); R45.851 Suicidal ideations; R79.89 Other specified abnormal findings of blood chemistry; F11.20 Opioid dependence, uncomplicated; F14.10 Cocaine abuse, uncomplicated; Z79.899 Other long term (current) drug therapy
CPT/HCPCS: 36415; 74176; 76705; 80053; 80307; 81001; 85025; 86704; 86706; 86709; 86803; 87340; 93005; 99285; S9485

== ENCOUNTER → 2024-01-26 11:06 | Outpatient (BNV) | payer MEDICARE, MEDICAID, SELFPAY | PROVIDERS: Emergency Provider Emergency Medicine; Visit Provider Internal Medicine | DX: R94.31 Abnormal electrocardiogram [ECG] [EKG] (principal) | CPT/HCPCS: 93010 ==

== ENCOUNTER 2024-03-04 23:37 | Inpatient (IN) | payer MEDICARE, MEDICAID, SELFPAY ==
--- NOTE | 2024-03-05 | ECG_ITS ---
Test Reason : MED CLEARANCE Blood Pressure : / mmHG Vent. Rate : 044 BPM Atrial Rate : 044 BPM P-R Int : 114 ms QRS Dur : 108 ms QT Int : 464 ms P-R-T Axes : 068 069 054 degrees QTc Int : 396 ms Marked sinus bradycardia Abnormal ECG When compared with ECG of 26-JAN-2024 11:06, Vent. rate has decreased BY 35 BPM QT has shortened Referred By: Quincy Mccoy Electronically Signed By:MIGUEL WOOD
[2024-03-05 00:05] VITALS: BP 115/61; PULSE 78; RESP 18; TEMP 36.2; O2SAT 97; BMI 26.6
[2024-03-05 00:39] LABS: Amphetamine Screen Urine Not Detected (Not Detect); Barbiturates, Urine Not Detected (Not Detect); Benzodiazepines Screen Urine Not Detected (Not Detect); Buprenorphine Scr Not Detected (Not Detect); Cannabinoid Screen Urine Not Detected (Not Detect); Cocaine Screen Urine POSITIVE (Not Detect); Fentanyl, urine POSITIVE (Not Detect); Methadone Screen, Urine Not Detected (Not Detect); Opiate Screen Urine Not Detected (Not Detect); Oxycodone Screen Urine Not Detected (Not Detect); Phencyclidine Screen Urine Not Detected (Not Detect)
[2024-03-05 00:39] LABS: MANUAL DIFF FLAG NO
[2024-03-05 00:42] LABS: Basophils Percent Auto 0.4 % (0-2); Eosinophils Absolute Auto 0.2 X10*3/uL (0.0-0.4); Eosinophils Percent Auto 3.4 % (0-4); Hematocrit 37.8 % (42.0-52.0); Hemoglobin 12.1 g/dl (14.0-18.0); Imm Gran Abs Auto 0.01 X10*3/uL (0.00-0.03); Imm Gran Pct Auto 0.1 % (0.0-0.4); Lymphocytes Absolute Auto 1.9 X10*3/uL (1.2-4.9); Lymphocytes Percent Auto 28.1 % (20-40); Mean Corpuscular Hemoglobin 27.3 pg (27.0-33.0); Mean Corpuscular Volume 85.3 fL (80.0-98.0); Mean Platelet Volume 10.1 fL (9.4-12.4); Monocytes Absolute Auto 0.5 X10*3/uL (0.1-1.2); Monocytes Percent Auto 7.4 % (2-11); Neutrophils Absolute Auto 4.1 x10*3/uL (2.0-8.3); Neutrophils Percent Auto 60.6 % (45-73); Platelet Count 171 X10*3/uL (160-400); Red Blood Count 4.43 X10*6/uL (4.60-5.80); Red Cell Distribution Width 15.7 % (11.0-16.0); White Blood Count 6.8 X10*3/uL (4.8-10.8)
--- NOTE | 2024-03-05 00:46 | MHC.EDTECH ---
all belongings in decon.
--- NOTE | 2024-03-05 00:47 | PC.NURSE ---
attempted to call [facility] agency appointments supervisor for dosing info for client agency appointments supervisor doesnt have access.
[2024-03-05 01:01] LABS: Alanine Aminotransferase 14 U/L (0-40); Albumin Level 4.3 g/dL (3.5-5.0); Alkaline Phosphatase 115 U/L (39-117); Anion Gap 14 (12-20); Aspartate Amino Transferase 14 U/L (5-37); Bilirubin Total 0.4 mg/dL (0.0-1.0); Blood Urea Nitrogen 15 mg/dL (9-16); Calcium 10.1 mg/dL (8.4-10.2); Carbon Dioxide 27 mmol/L (22-29); Chloride 105 mmol/L (96-108); Creatinine Clr Calc Pharmacy 73.2; Estimated Glomerular Filt Rate > 60; Ethanol < 10 mg/dL; Glucose Random 80 mg/dL (60-115); Potassium 3.8 mmol/L (3.3-5.1); Sodium 142 mmol/L (135-145); Total Protein 7.2 g/dL (6.5-8.0)
--- NOTE | 2024-03-05 01:12 | ED_ITS ---
HPI - Psych General Chief Complaint: Psychiatric Symptoms Stated Complaint: wants to speak to a dr Time Seen by Provider: 03/05/24 00:30 Source: patient Mode of arrival: ambulatory Limitations: no limitations History of Present Illness ED Provider: steph MATOS Narrative: Patient' with history of schizoaffective disorder and polysubstance abuse on methadone goes to [facility] for methadone last dose was 3 days ago lost his ID and phone unable to get the right comes here as is hearing voices with telling him to jump in front of the car feels anxious unable to sleep was at [facility] for 2 weeks until 3 days ago Related Data Home Medications ?Medication ?Instructions ?Recorded ?Confirmed methadone 10 mg tablet 100 mg PO DAILY 01/15/24 01/26/24 Previous Rx's ?Medication ?Instructions ?Recorded diazepam 5 mg tablet 5 mg PO DAILY PRN anxiety 30 days 01/23/24 #30 tabs famotidine 20 mg tablet 20 mg PO BIDWM 30 days #60 tabs 01/23/24 fluoxetine 40 mg capsule 40 mg PO QPM 30 days #30 caps 01/23/24 olanzapine 20 mg tablet 20 mg PO DAILY 30 days #30 tabs 01/23/24 Allergies Allergy/AdvReac Type Severity Reaction Status Date / Time No Known Allergies Allergy Verified 03/05/24 00:14 Review of Systems 2 Review of Systems: Yes all other systems are reviewed and are negative PMFSH Past Medical History Medical History Opioid use disorder Cocaine use disorder Schizoaffective disorder, depressive type Social History Social History Household Members: None Housing: House Patient Tobacco Use Status: Never used Tobacco Substance Use Type: Crack/Cocaine Advance Directives: No Advance Directives Information Provided: No Do you have a plan to hurt others: No Plan service: No Sexual orientation: Decline to Answer Physical Exam 2 Vital Signs: Vital Signs: Last Vital Signs Temp 97.2 F 03/05/24 00:05 Pulse 78 03/05/24 00:05 Resp 18 03/05/24 00:05 BP 115/61 03/05/24 00:05 Pulse Ox 97 03/05/24 00:05 O2 Del Method Room Air 03/05/24 00:05 BMI result Body Mass Index 26.6 Appearance: Alert. Oriented X3. No acute distress. Eyes: PERRLA, No Nystagmus ENT: Pharynx normal. Oral Mucosa moist Neck: Normal inspection. Neck supple. CVS: Normal heart rate and rhythm. Pulses normal. Respiratory: No respiratory distress. Equal air entry bilateral, no wheezing/rales/rhonchi Abdomen: Soft and nontender. Bowel sounds are present, no mass palpable, no CVA tenderness Skin: Skin warm and dry. Normal skin color. Normal skin turgor. Extremities: No lower extremity edema. No calf tenderness psych: Anxious no SI or HI at this time Neuro: Oriented X 3. No motor deficit. No sensory deficit.No cerebellar signs , cranial nerves II-XII intact Medications Administered Discontinued Medications Generic Name Dose Route Start Last Admin Trade Name Freq PRN Reason Stop Dose Admin Lorazepam 2 mg 03/05/24 01:12 03/05/24 01:18 Lorazepam 1 Mg Tablet PO 03/05/24 01:13 2 mg ONCE ONE Administration Methadone HCl 40 mg 03/05/24 02:50 03/05/24 03:07 Methadone Hcl 20 Mg/2 Ml Oral.Conc PO 03/05/24 02:51 40 mg ONCE ONE Administration Medical Decision Making Medical Decision Making MDM Narrative: Patient's depression suicidal feeling will get care team consultation, medically cleared Lab Data MDM Lab Attestation statement: I reviewed the patient's lab results. 03/05/24 00:32 03/05/24 00:32 Labs: Lab Results 03/05/24 03/05/24 Range/Units 00:22 00:32 WBC 6.8 (4.8-10.8) X10*3/uL RBC 4.43 L (4.60-5.80) X10*6/uL Hgb 12.1 L (14.0-18.0) g/dl Hct 37.8 L (42.0-52.0) % MCV 85.3 (80.0-98.0) fL MCH 27.3 (27.0-33.0) pg MCHC 32.0 (31.0-36.0) g/dl RDW 15.7 (11.0-16.0) % Plt Count 171 (160-400) X10*3/uL MPV 10.1 (9.4-12.4) fL Immature Gran % (Auto) 0.1 (0.0-0.4) % Neut % (Auto) 60.6 (45-73) % Lymph % (Auto) 28.1 (20-40) % [place] % (Auto) 7.4 (2-11) % Eos % (Auto) 3.4 (0-4) % Baso % (Auto) 0.4 (0-2) % Lymph # (Auto) 1.9 (1.2-4.9) X10*3/uL [place] # (Auto) 0.5 (0.1-1.2) X10*3/uL Eos # (Auto) 0.2 (0.0-0.4) X10*3/uL Baso # (Auto) 0.0 (0.0-0.2) X10*3/uL Abs Immat Gran (auto) 0.01 (0.00-0.03) X10*3/uL Absolute Neuts (auto) 4.1 (2.0-8.3) x10*3/uL Absolute Nucleated RBC 0.000 (0.0-0.012) X10*3/uL Nucleated RBC % (auto) 0.0 (0.0-0.2) /100WBC Sodium 142 (135-145) mmol/L Potassium 3.8 (3.3-5.1) mmol/L Chloride 105 (96-108) mmol/L Carbon Dioxide 27 (22-29) mmol/L Anion Gap 14 (12-20) BUN 15 (9-16) mg/dL Creatinine 1.18 (0.5-1.4) mg/dL Estim Creat Clear Calc 73.2 Estimated GFR > 60 Random Glucose 80 (60-115) mg/dL Calcium 10.1 (8.4-10.2) mg/dL Total Bilirubin 0.4 (0.0-1.0) mg/dL AST 14 (5-37) U/L ALT 14 (0-40) U/L Alkaline Phosphatase 115 (39-117) U/L Total Protein 7.2 (6.5-8.0) g/dL Albumin 4.3 (3.5-5.0) g/dL Urine Opiates Screen Not Detected (Not Detect) Ur Buprenorphine Scrn Not Detected (Not Detect) ng/mL Ur Oxycodone Screen Not Detected (Not Detect) ng/mL Urine Methadone Screen Not Detected (Not Detect) ng/mL Urine Fentanyl Screen POSITIVE H (Not Detect) Ur Barbiturates Screen Not Detected (Not Detect) Ur Phencyclidine Scrn Not Detected (Not Detect) Ur Amphetamines Screen Not Detected (Not Detect) U Benzodiazepines Scrn Not Detected (Not Detect) Urine Cocaine Screen POSITIVE H (Not Detect) U Marijuana (THC) Screen Not Detected (Not Detect) Ethyl Alcohol < 10 mg/dL Discharge Plan Discharge Clinical Impression: Schizoaffective disorder, depressive type, Cocaine use disorder, Opioid use disorder Patient Disposition: Still a Patient Prescriptions: No Action methadone 10 mg Tablet 100 mg PO DAILY famotidine 20 mg Tablet 20 mg PO BIDWM 30 Days Qty: 60 1RF fluoxetine 40 mg capsule 40 mg PO QPM 30 Days Qty: 30 1RF olanzapine 20 mg tablet 20 mg PO DAILY 30 Days Qty: 30 1RF diazepam 5 mg tablet 5 mg PO DAILY PRN (Reason: anxiety) 30 Days Qty: 30 0RF Interventions: Sentinel-Suicide Risk Severity Scale Last Done: 03/05/24 00:43 Print Language: Kiswahili
[2024-03-05] MEDS: LORazepam 1 MG TABLET 2 MG PO (01:18)
--- NOTE | 2024-03-05 02:54 | PC.NURSE ---
patient during triage had discussed with me cerda he had not received methadone from his clinic for 3 days. patient c/o restless legs, rec'd 2mg po ativan with minimal effect. t/w discussed a dose of methadone and then in am a supplemental dose could be provided once more information is obtained from [facility]. awaiting confirmation from pharmacy.
[2024-03-05] MEDS: methADONE HCl 20 MG/2 ML ORAL.CONC 40 MG PO (03:07)
--- NOTE | 2024-03-05 08:28 | PC.NURSE ---
Addendum entered by Disha Aguilar RN 03/05/24 08:33: Pt signed release of info that was faxed over to [employer] and placed in chart. [employer] fax machine having technical difficulties so pt gave verbal consent over the phone to Velvet Staples. Per Velvet Robert pt last received his last Methadone 100mg dose on 01/14/24. Methadone dose confirmation form filled out and scannd to pharmacy Original Note: Pt signed release of info that was faxed over to [employer] and placed in chart. [employer] fax machine having technical difficulties so pt gave verbal consent over the phone to Velvet Staples. Per Velvet Robert pt last received his last Methadone 100mg dose on 01/14/24.
[2024-03-05 09:51] LABS: Appearance Urine Clear; Color Urine Yellow; Glucose Urine UA Negative (Negative); Leukocyte Esterase Urine Negative (Negative); Nitrite Urine Negative (Negative); Specific Gravity - Urine <= 1.005 (1.005-1.025); Urine Blood Negative (Negative); Urine Ketones Negative (Negative); Urine Protein Negative (Neg-Trace)
--- NOTE | 2024-03-05 14:33 | PC.NURSE ---
All pt belongings in [place] - per security
[2024-03-05 14:59] VITALS: BP 110/68; PULSE 86; RESP 16; TEMP 36.7; O2SAT 98
[2024-03-05] MEDS: methADONE HCl 20 MG/2 ML ORAL.CONC 100 MG PO (15:14)
--- NOTE | 2024-03-05 15:28 | PC.ADMIT ---
Pt is a 53 yo male with history of schizoaffective disorder and polysubstance use disorder. Pt on a CV, arrived to unit @ 1353 via wheelchair from [facility] ED. Pt presented to hospital due to command hallucinations telling him to kill himself by jumping in front of a car. Discharged from [facility] 3 days ago. Per pt I always hear voices but they don't usually tell me to do anything Pt denies active SI/HI at this time, calm, pleasant, cooperative, constricted affect, skin check unremarkable. Methadone dose verified by ED. Tox screen positive for Fentanyl and cocaine. VSS. Pt belongings in dec.
--- NOTE | 2024-03-05 19:07 | P.HPPS_ITS ---
HPI Date of Service: 03/05/24 Chief Complaint: Schizoaffective disorder, polysubstance use disord Sources of Information: patient interviewed, chart reviewed and crisis/core team assessment reviewed HPI Subjective Notes: [place] Warning and Conditional Voluntary Healthcare Proxy: No Guardianship: No Medical Problems Affecting Mental Status: No Narrative: 53 yo male, hx of schizoaffective disorder, to ER reporting SI with plan to run in front of a car or hang himself. Reports perceptual alterations, AH,VH Recent discharge from [facility] Relapse on substances, toxicology positive for cocaine, fentanyl Past Psychiatric History: IP: [facility], 2013, [facility] February2024 reports he was discharged 4 days ago, [facility] x 1 and this admit OP: [facility]C SANDER, Dr. Kc and Ricki Melgar for therapy Denies hx of suicide attempts Medical Evaluation Reviewed: Yes [facility] Medical History Opioid use disorder Cocaine use disorder Schizoaffective disorder, depressive type Family History: Father suicided Social History: Lives in [place], alone, homeless now he reports Denies legal issues Born and raised in [place] by parents. 2 siblings, sisters, one older, one younger. Completed high school. Several jobs-building pools, laying concrete, construction, working in [employer] Never No children Substance History: Reports use started after mother's passing in 2021 Toxicology positive for cocaine, fentanyl Opiate history-currently on Methadone Trauma History: Found his girlfriend who on the soft Loss of mom 2021 Diagnostics Vital Signs (24Hr): Vital Signs - 24 hr 03/05/24 00:05 03/05/24 14:59 Temperature 97.2 F 98.0 F Pulse Rate 78 86 Respiratory Rate 18 16 Blood Pressure 115/61 110/68 Pulse Oximetry 97 98 Oxygen Delivery Method Room Air Room Air BMI result Body Mass Index 26.6 Labs 03/05/24 00:32 03/05/24 00:32 Labs: Laboratory Results - last 48 hr 03/05/24 03/05/24 00:22 00:32 WBC 6.8 RBC 4.43 L Hgb 12.1 L Hct 37.8 L MCV 85.3 MCH 27.3 MCHC 32.0 RDW 15.7 Plt Count 171 MPV 10.1 Immature Gran % (Auto) 0.1 Neut % (Auto) 60.6 Lymph % (Auto) 28.1 [place] % (Auto) 7.4 Eos % (Auto) 3.4 Baso % (Auto) 0.4 Lymph # (Auto) 1.9 [place] # (Auto) 0.5 Eos # (Auto) 0.2 Baso # (Auto) 0.0 Abs Immat Gran (auto) 0.01 Absolute Neuts (auto) 4.1 Absolute Nucleated RBC 0.000 Nucleated RBC % (auto) 0.0 Sodium 142 Potassium 3.8 Chloride 105 Carbon Dioxide 27 Anion Gap 14 BUN 15 Creatinine 1.18 Estim Creat Clear Calc 73.2 Estimated GFR > 60 Random Glucose 80 Calcium 10.1 Total Bilirubin 0.4 AST 14 ALT 14 Alkaline Phosphatase 115 Total Protein 7.2 Albumin 4.3 Urine Color Yellow Urine Appearance Clear Urine pH 6.0 Ur Specific [place] <= 1.005 Urine Protein Negative Urine Glucose (UA) Negative Urine Ketones Negative Urine Blood Negative Urine Nitrite Negative Ur Leukocyte Esterase Negative Urine Opiates Screen Not Detected Ur Buprenorphine Scrn Not Detected Ur Oxycodone Screen Not Detected Urine Methadone Screen Not Detected Urine Fentanyl Screen POSITIVE H Ur Barbiturates Screen Not Detected Ur Phencyclidine Scrn Not Detected Ur Amphetamines Screen Not Detected U Benzodiazepines Scrn Not Detected Urine Cocaine Screen POSITIVE H U Marijuana (THC) Screen Not Detected Ethyl Alcohol < 10 Meds/Allergies Meds Home Medications ?Medication ?Instructions ?Recorded ?Confirmed ?Type methadone 10 mg tablet 100 mg PO DAILY 01/15/24 03/05/24 History Allergies Allergies Allergy/AdvReac Type Severity Reaction Status Date / Time No Known Allergies Allergy Verified 03/05/24 00:14 Mental Status Exam Mental Status Exam Patient Appearance: Fatigued Patient Orientation: Person, Place, Time and Situation Level of Consciousness: Alert Patient Behavior: Appropriate, Talkative, Cooperative and Good Eye Contact Mood Description: Depressed Affect Description: Flat Patient Cognition Impaired: No Ability to Follow Directions: Good Speech Pattern: Spontaneous Speech Memory Description: Intact Hallucinations: None Delusions: Not Present Thought Content: positive for Circumstantial and positive for Perseveration Depressive Symptoms: Thoughts of /Suicide Judgement: Poor Assessment & Plan Assessment & Plan (1) Opioid use disorder: Status: Acute Code(s): F11.90 - Opioid use, unspecified, uncomplicated (2) Cocaine use disorder: Status: Acute Code(s): F14.10 - Cocaine abuse, uncomplicated (3) Schizoaffective disorder, depressive type: Status: Acute Code(s): F25.1 - Schizoaffective disorder, depressive type Plan Schizoaffective Disorder, Opiate use disorder, currently on Methadone, Cocaine use disorder. Plan: Admit, CV, 15 minute checks Collateral contact Re-establish regime Diagnostics as needed Aftercare planning Patient educated on: medication risk/benefits and therapeutic strategies Reason for continued inpatient stay Substantial Risk for: rapid decompensation Statement Statement: I have reviewed the history and physical and performed a pertinent examination on my patient. No changes have occurred unless specified. If the History and Physical was not performed prior to admission, the Hospitalist's service will be consulted for completing the admission physical. Time Spent With Patient Time: Total time managing care of this patient today ____ minutes.
[2024-03-05] MEDS: traZODone HCL 50 MG TABLET PO (23:50)
[2024-03-06 08:00] VITALS: BP 92/58; PULSE 60; TEMP 35.9; O2SAT 97
[2024-03-06] MEDS: methADONE HCl 20 MG/2 ML ORAL.CONC 100 MG PO (08:00)
--- NOTE | 2024-03-06 10:52 | HO.PSYCHPN ---
Subjective Subjective Date of Service: 03/06/24 Reason For Visit: Schizoaffective disorder, polysubstance use disord Subjective Notes: Conditional Voluntary Healthcare Proxy: No Guardianship: No Medical Problems Affecting Mental Status: No Interim History: Pt reports feeling very tired, worn post admission. Denies SI/HI Re-establishing his regime-Valium, Prozac, Olanzapine Methadone sedation noted. Medication Compliance: Yes Side effects from medications: No Attending Groups: No Review of Systems Acute medical concerns: No Medical Review of Systems: unchanged Review of Systems Review of Systems Yes Unobtainable due to mental status Mental Status Exam Mental Status Exam Patient Appearance: Fatigued Patient Orientation: Person, Place, Time and Situation Level of Consciousness: Alert Patient Behavior: Appropriate, Talkative, Cooperative and Good Eye Contact Mood Description: Depressed Affect Description: Flat Patient Cognition Impaired: No Ability to Follow Directions: Good Speech Pattern: Spontaneous Speech Memory Description: Intact Hallucinations: None Delusions: Not Present Thought Content: positive for Circumstantial and positive for Perseveration Depressive Symptoms: Feelings of Worthlessness, Hopelessness and Low Self Esteem Judgement: Poor Diagnostics Vital Signs (24Hr): Vital Signs - 24 hr 03/05/24 14:59 03/06/24 08:00 Temperature 98.0 F 96.7 F L Pulse Rate 86 60 Respiratory Rate 16 Blood Pressure 110/68 92/58 L Pulse Oximetry 98 97 Oxygen Delivery Method Room Air Room Air BMI result Body Mass Index 26.6 Labs 03/05/24 00:32 03/05/24 00:32 Labs: Laboratory Results - last 48 hr 03/05/24 03/05/24 00:22 00:32 WBC 6.8 RBC 4.43 L Hgb 12.1 L Hct 37.8 L MCV 85.3 MCH 27.3 MCHC 32.0 RDW 15.7 Plt Count 171 MPV 10.1 Immature Gran % (Auto) 0.1 Neut % (Auto) 60.6 Lymph % (Auto) 28.1 [place] % (Auto) 7.4 Eos % (Auto) 3.4 Baso % (Auto) 0.4 Lymph # (Auto) 1.9 [place] # (Auto) 0.5 Eos # (Auto) 0.2 Baso # (Auto) 0.0 Abs Immat Gran (auto) 0.01 Absolute Neuts (auto) 4.1 Absolute Nucleated RBC 0.000 Nucleated RBC % (auto) 0.0 Sodium 142 Potassium 3.8 Chloride 105 Carbon Dioxide 27 Anion Gap 14 BUN 15 Creatinine 1.18 Estim Creat Clear Calc 73.2 Estimated GFR > 60 Random Glucose 80 Calcium 10.1 Total Bilirubin 0.4 AST 14 ALT 14 Alkaline Phosphatase 115 Total Protein 7.2 Albumin 4.3 Urine Color Yellow Urine Appearance Clear Urine pH 6.0 Ur Specific [place] <= 1.005 Urine Protein Negative Urine Glucose (UA) Negative Urine Ketones Negative Urine Blood Negative Urine Nitrite Negative Ur Leukocyte Esterase Negative Urine Opiates Screen Not Detected Ur Buprenorphine Scrn Not Detected Ur Oxycodone Screen Not Detected Urine Methadone Screen Not Detected Urine Fentanyl Screen POSITIVE H Ur Barbiturates Screen Not Detected Ur Phencyclidine Scrn Not Detected Ur Amphetamines Screen Not Detected U Benzodiazepines Scrn Not Detected Urine Cocaine Screen POSITIVE H U Marijuana (THC) Screen Not Detected Ethyl Alcohol < 10 Medications Medications Current Medications Acetaminophen (Acetaminophen 325 Mg Tablet) 650 mg PO Q6H PRN PRN Reason: Headache/Pain Mild Scale (1-3) Al Hydroxide/Mg Hydroxide (Magnesium Hydrox/Alum Hydrox 30 Ml Oral.Susp) 30 ml PO Q6H PRN PRN Reason: Heartburn/Nausea Hydroxyzine HCl (Hydroxyzine Hcl 25 Mg Tablet) 25 mg PO Q6H PRN PRN Reason: Anxiety Magnesium Hydroxide (Milk Of Magnesia 30 Ml Oral.Susp) 30 ml PO DAILY PRN PRN Reason: Constipation Methadone HCl (Methadone Hcl 20 Mg/2 Ml Oral.Conc) 100 mg PO DAILY BETTYE Last Admin: 03/06/24 08:00 Dose: 100 mg Nicotine (Nicotine 21 Mg Patch.Td24) 21 mg TRANSDERMA DAILY PRN PRN Reason: nicotine cravings Nicotine Polacrilex (Nicotine Polacrilex 2 Mg Gum) 4 mg BUCCAL Q2H PRN PRN Reason: Nicotine Cravings Trazodone HCl (Trazodone Hcl 50 Mg Tablet) 50 mg PO BEDTIME MRX1 PRN PRN Reason: Insomnia Last Admin: 03/05/24 23:50 Dose: 50 mg Allergies Allergies Allergy/AdvReac Type Severity Reaction Status Date / Time No Known Allergies Allergy Verified 03/05/24 00:14 Assessment & Plan Assessment & Plan (1) Schizoaffective disorder, depressive type: Status: Acute Code(s): F25.1 - Schizoaffective disorder, depressive type (2) Opioid use disorder: Status: Acute Code(s): F11.90 - Opioid use, unspecified, uncomplicated (3) Cocaine use disorder: Status: Acute Code(s): F14.10 - Cocaine abuse, uncomplicated Plan 03/06/24 Re-establish regime Monitor sedation from Methadone MVI, Folic Acid, Thiamine Reason for continued inpatient stay Substantial Risk for: rapid decompensation Time Spent With Patient Time: Total time managing care of this patient today ____ minutes.
[2024-03-06 20:00] VITALS: BP 100/54; PULSE 63; RESP 16; TEMP 36.6; O2SAT 95
[2024-03-06] MEDS: traZODone HCL 50 MG TABLET PO (21:04)
[2024-03-06] MEDS: FLUoxetine HCl Oral Solution 20 MG/5 ML SOLUTION 40 MG PO (21:04)
[2024-03-06] MEDS: OLANZapine 10 MG TABLET 20 MG PO (21:04)
[2024-03-07] MEDS: diazePAM 5 MG TABLET PO (05:59)
[2024-03-07 08:00] VITALS: BP 98/56; PULSE 86; RESP 20; TEMP 36.4; O2SAT 96
[2024-03-07] MEDS: methADONE HCl 20 MG/2 ML ORAL.CONC 100 MG PO (08:01)
[2024-03-07 08:36] LABS: Estimated Average Glucose 97 mg/dL
[2024-03-07 08:50] LABS: Cholesterol 134 mg/dL (<200); HDL Cholesterol 40 mg/dL (>40); Magnesium 2.1 mg/dL (1.6-2.6); Triglycerides 432 mg/dL (<150)
[2024-03-07 09:06] LABS: Free T4 (Free Thyroxine) 1.05 ng/dL (0.71-1.85); Thyroid Stimulating Hormone 5.04 uIU/mL (0.32-4.0)
[2024-03-07] MEDS: Multivitamin TABLET 1 TAB PO (09:10)
[2024-03-07] MEDS: Famotidine 20 MG TABLET PO ×2 (09:10→16:30)
[2024-03-07] MEDS: Folic Acid 1 MG TABLET PO (09:10)
[2024-03-07] MEDS: Thiamine HCL 100 MG TABLET PO (09:10)
[2024-03-07 09:30] LABS: Folate 8.8 ng/mL (> or = 4.0); Vitamin B12 383 pg/mL (200-900)
--- NOTE | 2024-03-07 17:28 | P.PNPSI_ITS ---
Subjective Subjective Date of Service: 03/07/24 Reason For Visit: Schizoaffective disorder, polysubstance use disord Interim History: met with pt; discussed with team internally preoccupied with thought blocking, speech latency. Says still having AH that says to go somewhere... otherwise says mood is good though blunted affect. Incontinent of stool Mental Status Exam Mental Status Exam Narrative: Pt is alert and oriented; behavior is quiet, cooperative, calm; patient is not in distress; dressed in hospital attire, disheveled; mood is described as good but affect blunged, downcast; eye contact appropriate; Speech is latent, slow, soft; psychomotor retardation present; thought process is goal directed but distracted; Thought content is on AH; otherwise pertinent to relevant topics; no SI/HI. Reports AH and internally preoccupied. Patients insight and judgment impaired Diagnostics Vital Signs (24Hr): Vital Signs - 24 hr 03/06/24 20:00 03/07/24 08:00 Temperature 97.8 F 97.5 F Pulse Rate 63 86 Respiratory Rate 16 20 Blood Pressure 100/54 L 98/56 L Pulse Oximetry 95 96 Oxygen Delivery Method Room Air Room Air BMI result Body Mass Index 26.6 Labs 03/05/24 00:32 03/05/24 00:32 Labs: Laboratory Results - last 48 hr 03/07/24 08:07 Estimat Average Glucose 97 Hemoglobin A1c % 5.0 Magnesium 2.1 Triglycerides 432 H Cholesterol 134 LDL Cholesterol, Calc TNP HDL Cholesterol 40 L Vitamin B12 383 Folate 8.8 TSH 5.04 H Free T4 1.05 Medications Medications Current Medications Acetaminophen (Acetaminophen 325 Mg Tablet) 650 mg PO Q6H PRN PRN Reason: Headache/Pain Mild Scale (1-3) Al Hydroxide/Mg Hydroxide (Magnesium Hydrox/Alum Hydrox 30 Ml Oral.Susp) 30 ml PO Q6H PRN PRN Reason: Heartburn/Nausea Diazepam (Diazepam 5 Mg Tablet) 5 mg PO DAILY PRN PRN Reason: anxiety Last Admin: 03/07/24 05:59 Dose: 5 mg Famotidine (Famotidine 20 Mg Tablet) 20 mg PO BIDWM BETTYE Last Admin: 03/07/24 16:30 Dose: 20 mg Fluoxetine HCl (Fluoxetine Hcl Oral Solution 20 Mg/5 Ml Solution) 40 mg PO BEDTIME BETTYE Last Admin: 03/06/24 21:04 Dose: 40 mg Folic Acid (Folic Acid 1 Mg Tablet) 1 mg PO DAILY PENDING SALE TO [facility] Last Admin: 03/07/24 09:10 Dose: 1 mg Hydroxyzine HCl (Hydroxyzine Hcl 25 Mg Tablet) 25 mg PO Q6H PRN PRN Reason: Anxiety Magnesium Hydroxide (Milk Of Magnesia 30 Ml Oral.Susp) 30 ml PO DAILY PRN PRN Reason: Constipation Methadone HCl (Methadone Hcl 20 Mg/2 Ml Oral.Conc) 100 mg PO DAILY PENDING SALE TO [facility] Last Admin: 03/07/24 08:01 Dose: 100 mg Multivitamins/Vitamin C (Multivitamin Tablet) 1 tab PO DAILY PENDING SALE TO [facility] Last Admin: 03/07/24 09:10 Dose: 1 tab Nicotine (Nicotine 21 Mg Patch.Td24) 21 mg TRANSDERMA DAILY PRN PRN Reason: nicotine cravings Nicotine Polacrilex (Nicotine Polacrilex 2 Mg Gum) 4 mg BUCCAL Q2H PRN PRN Reason: Nicotine Cravings Olanzapine (Olanzapine 10 Mg Tablet) 20 mg PO BEDTIME PENDING SALE TO [facility] Last Admin: 03/06/24 21:04 Dose: 20 mg Thiamine HCl (Thiamine Hcl 100 Mg Tablet) 100 mg PO DAILY PENDING SALE TO [facility] Last Admin: 03/07/24 09:10 Dose: 100 mg Trazodone HCl (Trazodone Hcl 50 Mg Tablet) 50 mg PO BEDTIME MRX1 PRN PRN Reason: Insomnia Last Admin: 03/06/24 21:04 Dose: 50 mg Allergies Allergies Allergy/AdvReac Type Severity Reaction Status Date / Time No Known Allergies Allergy Verified 03/05/24 00:14 Assessment & Plan Assessment & Plan (1) Schizoaffective disorder, depressive type: Status: Acute Code(s): F25.1 - Schizoaffective disorder, depressive type (2) Opioid use disorder: Status: Acute Code(s): F11.90 - Opioid use, unspecified, uncomplicated (3) Cocaine use disorder: Status: Acute Code(s): F14.10 - Cocaine abuse, uncomplicated Plan 03/06/24 Re-establish regime Monitor sedation from Methadone MVI, Folic Acid, Thiamine 03/07 AH and internally preoccupied continue zyprexa 20mg qhs continue prozac 40mg qhs Patient educated on: diagnosis and medication risk/benefits Informed Consent: understands and further education needed Reason for continued inpatient stay Substantial Risk for: inability to function Time Spent With Patient Time: Total time managing care of this patient today ____ minutes.
[2024-03-07] MEDS: FLUoxetine HCl Oral Solution 20 MG/5 ML SOLUTION 40 MG PO (21:00)
[2024-03-07] MEDS: OLANZapine 10 MG TABLET 20 MG PO (21:00)
[2024-03-07] MEDS: traZODone HCL 50 MG TABLET PO (21:00)
[2024-03-07] MEDS: hydrOXYzine HCL 25 MG TABLET PO (21:00)
[2024-03-08] MEDS: methADONE HCl 20 MG/2 ML ORAL.CONC 100 MG PO (08:13)
[2024-03-08 08:18] VITALS: BP 119/58; PULSE 82; RESP 16; TEMP 36.4; O2SAT 94
[2024-03-08] MEDS: Famotidine 20 MG TABLET PO ×2 (08:34→17:07)
[2024-03-08] MEDS: Folic Acid 1 MG TABLET PO (08:34)
[2024-03-08] MEDS: Multivitamin TABLET 1 TAB PO (08:35)
[2024-03-08] MEDS: Thiamine HCL 100 MG TABLET PO (08:35)
--- NOTE | 2024-03-08 11:38 | P.PNPSI_ITS ---
Subjective Subjective Date of Service: 03/08/24 Reason For Visit: Schizoaffective disorder, polysubstance use disord Interim History: Met with patient; discussed with team Patient doing a little better today, more alert and speech latency seemed to have cleared up. Patient said that AH remains but it is not too bad and that he can ignore it. Says he feels like he is overall doing better. Later patient submitted a 3 day notice. Process Helper discussed attending to ADLs and he said he would work on this Mental Status Exam Mental Status Exam Narrative: Pt is alert and oriented; behavior is quiet, cooperative, calm; patient is not in distress; dressed in hospital attire, disheveled; mood is described as good but affect little brighter; eye contact appropriate; Speech is no longer latent, spontaneous, normal volume, rate, prosody; still psychomotor retardation present but less; thought process is goal directed, less distracted; Thought content is on feeling better, less problematic AH; otherwise pertinent to relevant topics; no SI/HI. Reports AH but less bothersome; still somewhat internally preoccupied but less so. Patients insight and judgment impaired, but improving. Diagnostics Vital Signs (24Hr): Vital Signs - 24 hr 03/08/24 08:18 Temperature 97.5 F Pulse Rate 82 Respiratory Rate 16 Blood Pressure 119/58 L Pulse Oximetry 94 Oxygen Delivery Method Room Air BMI result Body Mass Index 26.6 Labs 03/05/24 00:32 03/05/24 00:32 Labs: Laboratory Results - last 48 hr 03/07/24 08:07 Estimat Average Glucose 97 Hemoglobin A1c % 5.0 Magnesium 2.1 Triglycerides 432 H Cholesterol 134 LDL Cholesterol, Calc TNP HDL Cholesterol 40 L Vitamin B12 383 Folate 8.8 TSH 5.04 H Free T4 1.05 Medications Medications Current Medications Acetaminophen (Acetaminophen 325 Mg Tablet) 650 mg PO Q6H PRN PRN Reason: Headache/Pain Mild Scale (1-3) Al Hydroxide/Mg Hydroxide (Magnesium Hydrox/Alum Hydrox 30 Ml Oral.Susp) 30 ml PO Q6H PRN PRN Reason: Heartburn/Nausea Diazepam (Diazepam 5 Mg Tablet) 5 mg PO DAILY PRN PRN Reason: anxiety Last Admin: 03/07/24 05:59 Dose: 5 mg Famotidine (Famotidine 20 Mg Tablet) 20 mg PO BIDWM BETTYE Last Admin: 03/08/24 08:34 Dose: 20 mg Fluoxetine HCl (Fluoxetine Hcl Oral Solution 20 Mg/5 Ml Solution) 40 mg PO BEDTIME [facility] Last Admin: 03/07/24 21:00 Dose: 40 mg Folic Acid (Folic Acid 1 Mg Tablet) 1 mg PO DAILY [facility] Last Admin: 03/08/24 08:34 Dose: 1 mg Hydroxyzine HCl (Hydroxyzine Hcl 25 Mg Tablet) 25 mg PO Q6H PRN PRN Reason: Anxiety Last Admin: 03/07/24 21:00 Dose: 25 mg Magnesium Hydroxide (Milk Of Magnesia 30 Ml Oral.Susp) 30 ml PO DAILY PRN PRN Reason: Constipation Methadone HCl (Methadone Hcl 20 Mg/2 Ml Oral.Conc) 100 mg PO DAILY [facility] Last Admin: 03/08/24 08:13 Dose: 100 mg Multivitamins/Vitamin C (Multivitamin Tablet) 1 tab PO DAILY [facility] Last Admin: 03/08/24 08:35 Dose: 1 tab Nicotine (Nicotine 21 Mg Patch.Td24) 21 mg TRANSDERMA DAILY PRN PRN Reason: nicotine cravings Nicotine Polacrilex (Nicotine Polacrilex 2 Mg Gum) 4 mg BUCCAL Q2H PRN PRN Reason: Nicotine Cravings Olanzapine (Olanzapine 10 Mg Tablet) 20 mg PO BEDTIME [facility] Last Admin: 03/07/24 21:00 Dose: 20 mg Thiamine HCl (Thiamine Hcl 100 Mg Tablet) 100 mg PO DAILY [facility] Last Admin: 03/08/24 08:35 Dose: 100 mg Trazodone HCl (Trazodone Hcl 50 Mg Tablet) 50 mg PO BEDTIME MRX1 PRN PRN Reason: Insomnia Last Admin: 03/07/24 21:00 Dose: 50 mg Allergies Allergies Allergy/AdvReac Type Severity Reaction Status Date / Time No Known Allergies Allergy Verified 03/05/24 00:14 Assessment & Plan Assessment & Plan (1) Schizoaffective disorder, depressive type: Status: Acute Code(s): F25.1 - Schizoaffective disorder, depressive type (2) Opioid use disorder: Status: Acute Code(s): F11.90 - Opioid use, unspecified, uncomplicated (3) Cocaine use disorder: Status: Acute Code(s): F14.10 - Cocaine abuse, uncomplicated Plan 03/06/24 Re-establish regime Monitor sedation from Methadone MVI, Folic Acid, Thiamine 03/07 AH and internally preoccupied continue zyprexa 20mg qhs continue prozac 40mg qhs 03/08 Patient doing a little better today, more alert and speech latency seemed to have cleared up. Patient said that AH remains but it is not too bad and that he can ignore it. Says he feels like he is overall doing better. Later - patient submitted a 3 day notice Patient educated on: diagnosis, medication risk/benefits and therapeutic strategies Informed Consent: understands Reason for continued inpatient stay Substantial Risk for: rapid decompensation Time Spent With Patient Time: Total time managing care of this patient today ____ minutes.
[2024-03-08 20:00] VITALS: BP 122/63; PULSE 81; RESP 18; TEMP 36.4; O2SAT 98
[2024-03-08] MEDS: diazePAM 5 MG TABLET PO (20:02)
[2024-03-08] MEDS: FLUoxetine HCl Oral Solution 20 MG/5 ML SOLUTION 40 MG PO (20:03)
[2024-03-08] MEDS: OLANZapine 10 MG TABLET 20 MG PO (20:03)
[2024-03-09] MEDS: traZODone HCL 50 MG TABLET PO ×3 (03:07→22:53)
[2024-03-09] MEDS: methADONE HCl 20 MG/2 ML ORAL.CONC 100 MG PO (07:56)
[2024-03-09 08:00] VITALS: BP 125/60; PULSE 70; RESP 16; TEMP 36.4; O2SAT 97
[2024-03-09] MEDS: Famotidine 20 MG TABLET PO ×2 (08:41→16:37)
[2024-03-09] MEDS: Thiamine HCL 100 MG TABLET PO (08:41)
[2024-03-09] MEDS: Multivitamin TABLET 1 TAB PO (08:41)
[2024-03-09] MEDS: Folic Acid 1 MG TABLET PO (08:41)
--- NOTE | 2024-03-09 10:46 | HO.PSYCHPN ---
Subjective Subjective Date of Service: 03/09/24 Reason For Visit: Schizoaffective disorder, polysubstance use disord Interim History: Met with patient; discussed with team Patient doing much better, brighter, shaved, showered, saying he feels good and back to his regular self. Patient said I was depressed we could bad... Did not want to do anything... But something just clicked and patient said he started feeling better. Not sedated, out about the milieu interacting with peers and in good behavioral and impulse control. Mental Status Exam Mental Status Exam Narrative: Pt is alert and oriented; behavior is cooperative, calm, friendly; patient is not in distress; dressed in hospital attire, shaved, showered; mood is described as good and affect congruent, clearly brighter, calm, alert; eye contact appropriate; Speech is spontaneous, normal volume, rate, prosody and no latency; no psychomotor retardation; thought process is goal directed; Thought content is on feeling better; otherwise pertinent to relevant topics; no SI/HI. Currently No AH and patient does not appear internally preoccupied. Patients insight and judgment fair and likely at baseline Diagnostics Vital Signs (24Hr): Vital Signs - 24 hr 03/08/24 20:00 03/09/24 08:00 Temperature 97.6 F 97.5 F Pulse Rate 81 70 Respiratory Rate 18 16 Blood Pressure 122/63 125/60 Pulse Oximetry 98 97 Oxygen Delivery Method Room Air Room Air BMI result Body Mass Index 26.6 Labs 03/05/24 00:32 03/05/24 00:32 Medications Medications Current Medications Acetaminophen (Acetaminophen 325 Mg Tablet) 650 mg PO Q6H PRN PRN Reason: Headache/Pain Mild Scale (1-3) Al Hydroxide/Mg Hydroxide (Magnesium Hydrox/Alum Hydrox 30 Ml Oral.Susp) 30 ml PO Q6H PRN PRN Reason: Heartburn/Nausea Diazepam (Diazepam 5 Mg Tablet) 5 mg PO DAILY PRN PRN Reason: anxiety Last Admin: 03/08/24 20:02 Dose: 5 mg Famotidine (Famotidine 20 Mg Tablet) 20 mg PO BIDWM [facility] Last Admin: 03/09/24 08:41 Dose: 20 mg Fluoxetine HCl (Fluoxetine Hcl Oral Solution 20 Mg/5 Ml Solution) 40 mg PO BEDTIME BETTYE Last Admin: 03/08/24 20:03 Dose: 40 mg Folic Acid (Folic Acid 1 Mg Tablet) 1 mg PO DAILY [facility] Last Admin: 03/09/24 08:41 Dose: 1 mg Hydroxyzine HCl (Hydroxyzine Hcl 25 Mg Tablet) 25 mg PO Q6H PRN PRN Reason: Anxiety Last Admin: 03/07/24 21:00 Dose: 25 mg Magnesium Hydroxide (Milk Of Magnesia 30 Ml Oral.Susp) 30 ml PO DAILY PRN PRN Reason: Constipation Methadone HCl (Methadone Hcl 20 Mg/2 Ml Oral.Conc) 100 mg PO DAILY [facility] Last Admin: 03/09/24 07:56 Dose: 100 mg Multivitamins/Vitamin C (Multivitamin Tablet) 1 tab PO DAILY [facility] Last Admin: 03/09/24 08:41 Dose: 1 tab Nicotine (Nicotine 21 Mg Patch.Td24) 21 mg TRANSDERMA DAILY PRN PRN Reason: nicotine cravings Nicotine Polacrilex (Nicotine Polacrilex 2 Mg Gum) 4 mg BUCCAL Q2H PRN PRN Reason: Nicotine Cravings Olanzapine (Olanzapine 10 Mg Tablet) 20 mg PO BEDTIME [facility] Last Admin: 03/08/24 20:03 Dose: 20 mg Thiamine HCl (Thiamine Hcl 100 Mg Tablet) 100 mg PO DAILY [facility] Last Admin: 03/09/24 08:41 Dose: 100 mg Trazodone HCl (Trazodone Hcl 50 Mg Tablet) 50 mg PO BEDTIME MRX1 PRN PRN Reason: Insomnia Last Admin: 03/09/24 03:07 Dose: 50 mg Allergies Allergies Allergy/AdvReac Type Severity Reaction Status Date / Time No Known Allergies Allergy Verified 03/05/24 00:14 Assessment & Plan Assessment & Plan (1) Schizoaffective disorder, depressive type: Status: Acute Code(s): F25.1 - Schizoaffective disorder, depressive type (2) Opioid use disorder: Status: Acute Code(s): F11.90 - Opioid use, unspecified, uncomplicated (3) Cocaine use disorder: Status: Acute Code(s): F14.10 - Cocaine abuse, uncomplicated Plan 03/06/24 Re-establish regime Monitor sedation from Methadone MVI, Folic Acid, Thiamine 03/07 AH and internally preoccupied continue zyprexa 20mg qhs continue prozac 40mg qhs 03/08 Patient doing a little better today, more alert and speech latency seemed to have cleared up. Patient said that AH remains but it is not too bad and that he can ignore it. Says he feels like he is overall doing better. Later -patient submitted a 3 day notice 03/09 Patient doing much better, brighter, shaved, showered, saying he feels good and back to his regular self. Patient said I was depressed we could bad... Did not want to do anything... But something just clicked and patient said he started feeling better. Not sedated, out about the milieu interacting with peers and in good behavioral and impulse control. -3day notice Patient educated on: diagnosis, medication risk/benefits and therapeutic strategies Informed Consent: understands Reason for continued inpatient stay Substantial Risk for: stable for discharge Time Spent With Patient Time: Total time managing care of this patient today ____ minutes.
--- NOTE | 2024-03-09 18:59 | PC.NURSE ---
Stevo was up for breakfast and ate 100% of his breakfast. Mood was pleasant a bit more interactive with peers and remained awake and alert all morning he requested to shower around 11:30am. Addendum at 1852: Stevo also requested to shave and continued to be clear and coherent all shift. He reported to this contract writer that he had not been suicidal or had hallucinations, for a long time. I reflected back to him what I had read about how he came to be admitted, he was surprised and said he had no clear recollection of the evens just prior to admission. Again he stated that he was not suicidal and was not currently experiencing hallucinations. He said, I was really messed up. I feel so much better after some sleep and after getting a few doses of methadone. He is hopeful that social work will help to arrange transportation for him so he can get back on methadone at his clinic.
[2024-03-09 20:00] VITALS: BP 147/73; PULSE 89; RESP 16; TEMP 36.9; O2SAT 98
[2024-03-09] MEDS: FLUoxetine HCl Oral Solution 20 MG/5 ML SOLUTION 40 MG PO (21:00)
[2024-03-09] MEDS: diazePAM 5 MG TABLET PO (21:00)
[2024-03-09] MEDS: OLANZapine 10 MG TABLET 20 MG PO (21:01)
[2024-03-09] MEDS: hydrOXYzine HCL 25 MG TABLET PO (22:53)
[2024-03-10] MEDS: traZODone HCL 50 MG TABLET PO (02:32)
[2024-03-10] MEDS: methADONE HCl 20 MG/2 ML ORAL.CONC 100 MG PO (07:54)
[2024-03-10 08:00] VITALS: BP 134/57; PULSE 90; RESP 16; TEMP 36.2; O2SAT 96
[2024-03-10] MEDS: Thiamine HCL 100 MG TABLET PO (09:31)
[2024-03-10] MEDS: Folic Acid 1 MG TABLET PO (09:31)
[2024-03-10] MEDS: Multivitamin TABLET 1 TAB PO (09:31)
[2024-03-10] MEDS: Famotidine 20 MG TABLET PO (09:31)
--- NOTE | 2024-03-10 16:46 | P.PNPSI_ITS ---
Subjective Subjective Date of Service: 03/10/24 Reason For Visit: Schizoaffective disorder, polysubstance use disord Subjective Notes: 3 Day Healthcare Proxy: No Guardianship: No Medical Problems Affecting Mental Status: No Interim History: Pt reports symptoms have improved as the weekend progressed and regime was re- established. Reports that AH and thought blocking sx are in improved control and he as a result submitted a three day notice over the weekend. Today, requests discharge for 03/11 as he has an opportunity for a housing situation which he would like to proceed with. He believes this will be stabilizing for him and will keep him on track. Medication Compliance: Yes Side effects from medications: No Attending Groups: Intermittent Review of Systems Acute medical concerns: No Medical Review of Systems: unchanged Review of Systems Review of Systems Yes all other systems are reviewed and are negative (denies) Mental Status Exam Mental Status Exam Patient Appearance: Appropriate Patient Orientation: Person, Place, Time and Situation Level of Consciousness: Alert Patient Behavior: Talkative and Good Eye Contact Mood Description: Appropriate Affect Description: Appropriate Patient Cognition Impaired: No Ability to Follow Directions: Good Speech Pattern: Spontaneous Speech Memory Description: Episodic Impaired Hallucinations: None Delusions: Not Present Perceptual Disturbances: Derealization Thought Process: Goal Oriented Thought Content: positive for Goal Oriented Judgement: Good Diagnostics Vital Signs (24Hr): Vital Signs - 24 hr 03/09/24 20:00 03/10/24 08:00 Temperature 98.4 F 97.2 F Pulse Rate 89 90 Respiratory Rate 16 16 Blood Pressure 147/73 H 134/57 L Pulse Oximetry 98 96 Oxygen Delivery Method Room Air Room Air BMI result Body Mass Index 26.6 Labs 03/05/24 00:32 03/05/24 00:32 Medications Medications Current Medications Acetaminophen (Acetaminophen 325 Mg Tablet) 650 mg PO Q6H PRN PRN Reason: Headache/Pain Mild Scale (1-3) Al Hydroxide/Mg Hydroxide (Magnesium Hydrox/Alum Hydrox 30 Ml Oral.Susp) 30 ml PO Q6H PRN PRN Reason: Heartburn/Nausea Diazepam (Diazepam 5 Mg Tablet) 5 mg PO DAILY PRN PRN Reason: anxiety Last Admin: 03/09/24 21:00 Dose: 5 mg Famotidine (Famotidine 20 Mg Tablet) 20 mg PO BIDWM BETTYE Last Admin: 03/10/24 09:31 Dose: 20 mg Fluoxetine HCl (Fluoxetine Hcl Oral Solution 20 Mg/5 Ml Solution) 40 mg PO BEDTIME [facility] Last Admin: 03/09/24 21:00 Dose: 40 mg Folic Acid (Folic Acid 1 Mg Tablet) 1 mg PO DAILY [facility] Last Admin: 03/10/24 09:31 Dose: 1 mg Hydroxyzine HCl (Hydroxyzine Hcl 25 Mg Tablet) 25 mg PO Q6H PRN PRN Reason: Anxiety Last Admin: 03/09/24 22:53 Dose: 25 mg Magnesium Hydroxide (Milk Of Magnesia 30 Ml Oral.Susp) 30 ml PO DAILY PRN PRN Reason: Constipation Methadone HCl (Methadone Hcl 20 Mg/2 Ml Oral.Conc) 100 mg PO DAILY [facility] Last Admin: 03/10/24 07:54 Dose: 100 mg Multivitamins/Vitamin C (Multivitamin Tablet) 1 tab PO DAILY [facility] Last Admin: 03/10/24 09:31 Dose: 1 tab Nicotine (Nicotine 21 Mg Patch.Td24) 21 mg TRANSDERMA DAILY PRN PRN Reason: nicotine cravings Nicotine Polacrilex (Nicotine Polacrilex 2 Mg Gum) 4 mg BUCCAL Q2H PRN PRN Reason: Nicotine Cravings Olanzapine (Olanzapine 10 Mg Tablet) 20 mg PO BEDTIME [facility] Last Admin: 03/09/24 21:01 Dose: 20 mg Thiamine HCl (Thiamine Hcl 100 Mg Tablet) 100 mg PO DAILY [facility] Last Admin: 03/10/24 09:31 Dose: 100 mg Trazodone HCl (Trazodone Hcl 50 Mg Tablet) 50 mg PO BEDTIME MRX1 PRN PRN Reason: Insomnia Last Admin: 03/10/24 02:32 Dose: 50 mg Allergies Allergies Allergy/AdvReac Type Severity Reaction Status Date / Time No Known Allergies Allergy Verified 03/05/24 00:14 Assessment & Plan Assessment & Plan (1) Schizoaffective disorder, depressive type: Status: Acute Code(s): F25.1 - Schizoaffective disorder, depressive type (2) Opioid use disorder: Status: Acute Code(s): F11.90 - Opioid use, unspecified, uncomplicated (3) Cocaine use disorder: Status: Acute Code(s): F14.10 - Cocaine abuse, uncomplicated Plan 03/06/24 Re-establish regime Monitor sedation from Methadone MVI, Folic Acid, Thiamine 03/07 AH and internally preoccupied continue zyprexa 20mg qhs continue prozac 40mg qhs 03/08 Patient doing a little better today, more alert and speech latency seemed to have cleared up. Patient said that AH remains but it is not too bad and that he can ignore it. Says he feels like he is overall doing better. Later - patient submitted a 3 day notice 03/09 Patient doing much better, brighter, shaved, showered, saying he feels good and back to his regular self. Patient said I was depressed we could bad... Did not want to do anything... But something just clicked and patient said he started feeling better. Not sedated, out about the milieu interacting with peers and in good behavioral and impulse control. 03/10: Discharge 03/11 -3day notice Informed Consent: understands Reason for continued inpatient stay Substantial Risk for: stable for discharge Time Spent With Patient Time: Total time managing care of this patient today ____ minutes.
[2024-03-10 20:00] VITALS: BP 121/69; PULSE 105; RESP 18; TEMP 36.2; O2SAT 94
[2024-03-10] MEDS: FLUoxetine HCl Oral Solution 20 MG/5 ML SOLUTION 40 MG PO (20:52)
[2024-03-10] MEDS: diazePAM 5 MG TABLET PO (20:52)
[2024-03-10] MEDS: OLANZapine 10 MG TABLET 20 MG PO (20:52)
[2024-03-11] MEDS: methADONE HCl 20 MG/2 ML ORAL.CONC 100 MG PO (07:57)
[2024-03-11 08:00] VITALS: BP 111/57; PULSE 69; RESP 18; TEMP 36.3; O2SAT 98
[2024-03-11] MEDS: Multivitamin TABLET 1 TAB PO (09:17)
[2024-03-11] MEDS: Folic Acid 1 MG TABLET PO (09:17)
[2024-03-11] MEDS: Thiamine HCL 100 MG TABLET PO (09:17)
[2024-03-11] MEDS: Famotidine 20 MG TABLET PO (09:17)
--- NOTE | 2024-03-11 14:45 | P.DS_ITS ---
DS: Providers Provider Date of Service: 03/11/24 Date of admission: 03/05/24 12:26 Date of discharge: 03/11/24 Primary care physician: Omar Physician Admitting clinician: Aria Odom Attending physician on admission: Edwin Lewis Attending physician on discharge: Edwin Lewis Discharging clinician: Aria Odom DS: Diagnosis Discharge Diagnosis (1) Schizoaffective disorder, depressive type: Status: Acute (2) Opioid use disorder: Status: Acute (3) Cocaine use disorder: Status: Acute DS: Medications Discharge Medications Home Medications: Home Medications ?Medication ?Instructions ?Recorded ?Confirmed methadone 10 mg tablet 100 mg PO DAILY 01/15/24 03/05/24 Previous Rx's ?Medication ?Instructions ?Recorded diazepam 5 mg tablet 5 mg PO DAILY PRN anxiety 30 days 03/10/24 #5 tabs famotidine 20 mg tablet 20 mg PO BIDWM 30 days #60 tabs 03/10/24 fluoxetine 40 mg capsule 40 mg PO QPM 30 days #30 caps 03/10/24 folic acid 1 mg tablet 1 mg PO DAILY #30 tabs 03/10/24 multivitamin (Daily-Kylee tablet) 1 tab PO DAILY #30 tabs 03/10/24 olanzapine 20 mg tablet 20 mg PO DAILY 30 days #30 tabs 03/10/24 thiamine mononitrate (vit B1) 100 100 mg PO DAILY #30 tabs 03/10/24 mg tablet trazodone 50 mg tablet 50 mg PO BEDTIME MRX1 PRN Insomnia 03/10/24 #60 tabs Mental Status Exam Mental Status Exam Patient Appearance: Appropriate Patient Orientation: Person, Place, Time and Situation Level of Consciousness: Alert Patient Behavior: Talkative and Good Eye Contact Mood Description: Appropriate Affect Description: Appropriate Patient Cognition Impaired: No Ability to Follow Directions: Good Speech Pattern: Spontaneous Speech Memory Description: Episodic Impaired Hallucinations: None Delusions: Not Present Perceptual Disturbances: Derealization Thought Process: Goal Oriented Thought Content: positive for Goal Oriented Judgement: Good Data Data Completed and Pending Completed studies during hospitalization [Text1]: 03/05/24 03/05/24 03/07/24 00:22 00:32 08:07 WBC 6.8 RBC 4.43 L Hgb 12.1 L Hct 37.8 L MCV 85.3 MCH 27.3 MCHC 32.0 RDW 15.7 Plt Count 171 MPV 10.1 Immature Gran % (Auto) 0.1 Neut % (Auto) 60.6 Lymph % (Auto) 28.1 Meade % (Auto) 7.4 Eos % (Auto) 3.4 Baso % (Auto) 0.4 Lymph # (Auto) 1.9 [place]ade # (Auto) 0.5 Eos # (Auto) 0.2 Baso # (Auto) 0.0 Abs Immat Gran (auto) 0.01 Absolute Neuts (auto) 4.1 Absolute Nucleated RBC 0.000 Nucleated RBC % (auto) 0.0 Sodium 142 Potassium 3.8 Chloride 105 Carbon Dioxide 27 Anion Gap 14 BUN 15 Creatinine 1.18 Estim Creat Clear Calc 73.2 Estimated GFR > 60 Random Glucose 80 Estimat Average Glucose 97 Hemoglobin A1c % 5.0 Calcium 10.1 Magnesium 2.1 Total Bilirubin 0.4 AST 14 ALT 14 Alkaline Phosphatase 115 Total Protein 7.2 Albumin 4.3 Triglycerides 432 H Cholesterol 134 LDL Cholesterol, Calc TNP HDL Cholesterol 40 L Vitamin B12 383 Folate 8.8 TSH 5.04 H Free T4 1.05 Urine Color Yellow Urine Appearance Clear Urine pH 6.0 Ur Specific [place] <= 1.005 Urine Protein Negative Urine Glucose (UA) Negative Urine Ketones Negative Urine Blood Negative Urine Nitrite Negative Ur Leukocyte Esterase Negative Urine Opiates Screen Not Detected Ur Buprenorphine Scrn Not Detected Ur Oxycodone Screen Not Detected Urine Methadone Screen Not Detected Urine Fentanyl Screen POSITIVE H Ur Barbiturates Screen Not Detected Ur Phencyclidine Scrn Not Detected Ur Amphetamines Screen Not Detected U Benzodiazepines Scrn Not Detected Urine Cocaine Screen POSITIVE H U Marijuana (THC) Screen Not Detected Ethyl Alcohol < 10 DS: Summary Hospital Course Hospital Course: Admission to adult psychiatry for exacerbation of polysubstance use disorder, schizoaffective disorder. Recent [place] [place] discharge. Medications were evaluated and adjusted. Pt signed a three day notice of intent, demanded an early discharge as he was able to find housing. He will follow up with [facility] for out pt care. Status at Discharge Functional status at discharge: independent ambulation Overall status at discharge: patient is back to baseline Time Spent with Patient Time attestation: Total time managing care of this patient today ____ minutes. Time spent: Less than 30 minutes Discharge Plan Discharge Anticipated Discharge Date/Time: 03/11/24 12:00 Patient Disposition: Xfer Other Discharge Diagnosis: Schizoaffective Disorder Opiate Use Disorder Cocaine Use Disorder Referrals: Clinical and Support Options: Ame Matos [Other] - 03/13/24 12:00 pm (Hospital discharge appointment for psychiatry and medication management and therapy services. Appointment is in Person at [facility] ) Physician,None [Primary Care Provider] - 1 Week Discharge Medications: New trazodone 50 mg Tablet 50 mg PO BEDTIME MRX1 PRN (Reason: Insomnia) Qty: 60 0RF folic acid 1 mg Tablet 1 mg PO DAILY Qty: 30 0RF multivitamin [Daily-Kylee] Tablet 1 tab PO DAILY Qty: 30 0RF thiamine mononitrate (vit B1) 100 mg Tablet 100 mg PO DAILY Qty: 30 0RF Continued methadone 10 mg Tablet 100 mg PO DAILY Patient Comments: Pt stated he thought he was receiving methadone while he was inpatient at [facility]. When this RN called [facility] they stated last dose was 01/14/24. Unable to get info if they were giving him his doses fluoxetine 40 mg capsule 40 mg PO QPM 30 Days Qty: 30 0RF famotidine 20 mg Tablet 20 mg PO BIDWM 30 Days Qty: 60 0RF olanzapine 20 mg tablet 20 mg PO DAILY 30 Days Qty: 30 0RF diazepam 5 mg tablet 5 mg PO DAILY PRN (Reason: anxiety) 30 Days Qty: 5 4RF Discharge Orders: Discharge Order (Routine); Ordered 03/11/24 Ordered By: Aria Odom Diet: Advance to usual diet Activity on Discharge: As tolerated Stand Alone Forms: Patient Portal Discharge page, Community Support Print Language: Comoran Care Plan Goals: Mood and Behavioral Stabilization Abstinence from Substances Health Concerns: Mood and Behavioral Stabilization Abstinence from substances Plan of Treatment: Attend scheduled appointments Take medications as directed Call/Return as needed Assessment: No SI/HI/AH/VH No sx of hernando, psychosis Three day notice in effect Pt reports he has received a housing opportunity and will follow up on this post discharge. Discharge Date/Time: 03/11/24 11:10
== END 2024-03-11 11:10 | disposition other institution (70) | DRG 885 ==
LOC: HO.ED 03-05 07:45 → HO.PM5 03-05 12:32
PROVIDERS: Internal Medicine; Admitting Provider Clinical Nurse Specialist Psychiatric/Mental Health, Adult; Emergency Provider Emergency Medicine Emergency Medical Services; Visit Provider Clinical Nurse Specialist Psychiatric/Mental Health, Adult
DX: F25.1 Schizoaffective disorder, depressive type (principal); F11.20 Opioid dependence, uncomplicated; R45.851 Suicidal ideations; F14.10 Cocaine abuse, uncomplicated; Z79.899 Other long term (current) drug therapy
CPT/HCPCS: 36415; 80053; 80061; 80307; 81003; 82607; 82746; 83036; 83735; 84439; 84443; 85025; 93005; 99285; S9485

== ENCOUNTER 2024-03-05 12:26 | Outpatient (BNV) | payer MEDICARE, MEDICAID, SELFPAY | END 2024-03-05 15:15 | PROVIDERS: Admitting Provider Clinical Nurse Specialist Psychiatric/Mental Health, Adult; Emergency Provider Emergency Medicine Emergency Medical Services; Visit Provider Internal Medicine | DX: R00.1 Bradycardia, unspecified (principal) | CPT/HCPCS: 93010 ==

== ENCOUNTER → 2024-03-05 12:26 | Outpatient (BNV) | payer MEDICARE, MEDICAID, SELFPAY | PROVIDERS: Admitting Provider Clinical Nurse Specialist Psychiatric/Mental Health, Adult; Emergency Provider Emergency Medicine Emergency Medical Services; Visit Provider Clinical Nurse Specialist Psychiatric/Mental Health, Adult | DX: F25.1 Schizoaffective disorder, depressive type (principal); F14.10 Cocaine abuse, uncomplicated; F11.90 Opioid use, unspecified, uncomplicated | CPT/HCPCS: 90792; 99231; 99232 ==

== ENCOUNTER → 2024-03-05 12:26 | Outpatient (BNV) | payer MEDICARE, MEDICAID, SELFPAY | PROVIDERS: Admitting Provider Clinical Nurse Specialist Psychiatric/Mental Health, Adult; Emergency Provider Emergency Medicine Emergency Medical Services; Visit Provider Psychiatry & Neurology Psychiatry | DX: F25.1 Schizoaffective disorder, depressive type (principal); F14.10 Cocaine abuse, uncomplicated; F11.90 Opioid use, unspecified, uncomplicated | CPT/HCPCS: 99238 ==

== ENCOUNTER 2025-05-07 23:04 | Emergency (ER) | payer MEDICARE, SELFPAY ==
[2025-05-07 23:10] VITALS: BP 122/63; PULSE 67; RESP 18; TEMP 36.6; O2SAT 97; BMI 22.7
--- OUTSIDE RECORDS SUMMARY | 2025-05-08 00:18 | XMS_ITS | Clinical Summary ---
Author Organization [facility] [employer] [facility] Address [address] [place] [address] Care Team Providers Care Area Representative Name Role Phone Unavailable Primary Care Provider Unavailabl e Encounters Date Type Department Care Team Description 05/04/2025 Patient Outreach [facility] [address] [place] [address] Andrea Stone RC Recovery Supports 04/29/2025 Patient Outreach [facility] [address] [place] [address] Daniel Lindsey RC Recovery Supports 04/27/2025 Patient Outreach [facility] [address] [place] [address] Jenna Red RC Recovery Supports from Last 3 Months Social History Tobacco Use Types Packs/Day Years Used Date Smoking Tobacco: Never Assessed Sex and Gender Information Value Date Recorded Sex Assigned at Male 06/12/2022 10:27 AM EDT Legal Sex Male 10:27 AM EDT Gender Identity Choose not to disclose 10:27 AM EDT Sexual Orientation Choose not to disclose 2021 10:27 AM EDT Plan of Treatment Health Maintenance Due Date Last Done Comments CT Colonography 1971 Colonoscopy 1971 Colorectal Cancer Screening 1971 Depression Screening 1971 FIT DNA/Cologuard 1971 FIT 1971 FOBT 1971 HIV Screening 1971 Lipid Panel 1971 SDOH Screening 1971 Sigmoidoscopy 1971 Disability Screening 1971 Alcohol/Substance Use Screening 1983 Tobacco Screening 1983 Hepatitis C Screening 1989 DTaP/Tdap/Td Vaccines (1 - Tdap) 1990 Hepatitis B Vaccines (1 of 3 - 19+ 3-dose series) 1990 Pneumococcal Vaccine: 50+ Ye ars (1 of 1 - PCV) 2021 Zoster Vaccines (1 of 2) 2021 COVID-19 Vaccine (1 - 2023-2 5 season) 2025 Influenza Vaccine (#1) 2025 RSV Patients and Pa tients Aged 60 years or older (1 - 1-dose 75+ series) 2046 HIB Vaccines Aged Out No longer eligi ble based on patient's age to complete this topic HPV Vaccines Aged Out No longer eligi ble based on patient's age to complete this topic Hepatitis A Vaccines Aged Out No long er eligible based on patient's age to complete this topic IPV Vaccines Aged Out No longer eligi ble based on patient's age to complete this topic Meningococcal B Vaccine Aged Out No l onger eligible based on patient's age to complete this topic Meningococcal Vaccine Aged Out No martha moisés eligible based on patient's age to complete this topic RSV under 20 months Aged Out No longe r eligible based on patient's age to complete this topic Rotavirus Vaccines Aged Out No longer eligible based on patient's age to complete this topic Insurance [facility] [employer] PPO
--- OUTSIDE RECORDS SUMMARY | 2025-05-08 00:18 | XMS_ITS | Encounter Summary ---
Author Organization [employer] Address [address] [place] [address] Care Team Providers Care Intern Retail Name Role Phone Unavailable Primary Care Provider Unavailabl e Reason for Visit * Reason Comments [facility] Recovery Supports Encounter Details Date Type Department Care Team (Late st Contact Info) Description 05/04/2025 Patient Outreach [facility] [address] [place] [address] Andrea Stone Recovery Supports Social History Tobacco Use Types Packs/Day Years Used Date Smoking Tobacco: Never Assessed Sex and Gender Information Value Date Recorded Sex Assigned at Male 06/12/2022 10:27 AM EDT Legal Sex Male 10:27 AM EDT Gender Identity Choose not to disclose 10:27 AM EDT Sexual Orientation Choose not to disclose 2021 10:27 AM EDT documented as of this encounter Progress Notes * Andrea Stone - 05/04/2025 2:59 PM EDT I met with Stevo today. Setting: in person at [facility] Recovery Wellness Goals worked on: Social Stability Action taken/next steps: Attended alcohol and drug free activity Additional comments: Andrea Stone documented in this encounter Plan of Treatment Not on file documented as of this encounter Visit Diagnoses Not on filedocumented in this encounter
--- NOTE | 2025-05-08 00:57 | ED.GENADULT ---
HPI - General Adult General Chief complaint: General Medical Stated complaint: needs another dose of methadone Time Seen by Provider: 05/08/25 00:42 Source: patient Mode of arrival: ambulatory Limitations: no limitations History of Present Illness ED Provider: Dr. Belen Davis HPI narrative: Patient comes to the emergency room reporting that he is withdrawing from methadone. Patient states that he had insurance problems and his insurance is no longer covering his methadone. Patient usually gets it at [facility]. Patient states that his new insurance is going to kick in on May 13. Patient is asking for the minimal dose of methadone so this can help him with the withdrawal symptoms and medication for diarrhea. Related Data Home Medications ?Medication ?Instructions ?Recorded ?Confirmed methadone 10 mg tablet 100 mg PO DAILY 01/15/24 03/05/24 Previous Rx's ?Medication ?Instructions ?Recorded diazepam 5 mg tablet 5 mg PO DAILY PRN anxiety 30 days 03/10/24 #5 tabs famotidine 20 mg tablet 20 mg PO BIDWM 30 days #60 tabs 03/10/24 fluoxetine 40 mg capsule 40 mg PO QPM 30 days #30 caps 03/10/24 folic acid 1 mg tablet 1 mg PO DAILY #30 tabs 03/10/24 multivitamin (Daily-Kylee tablet) 1 tab PO DAILY #30 tabs 03/10/24 olanzapine 20 mg tablet 20 mg PO DAILY 30 days #30 tabs 03/10/24 thiamine mononitrate (vit B1) 100 100 mg PO DAILY #30 tabs 03/10/24 mg tablet trazodone 50 mg tablet 50 mg PO BEDTIME MRX1 PRN Insomnia 03/10/24 #60 tabs Allergies Allergy/AdvReac Type Severity Reaction Status Date / Time No Known Allergies Allergy Verified 05/07/25 23:12 Review of Systems Review of Systems: Constitutional : No Weight loss, No Fever, No Chills, No Night Sweats, No Fatigue, patient complaining of generalized malaise, withdrawing from methadone ENT/Mouth : No Hearing loss, No Ear Pain, No Nasal Congestion, No Sinus Pain, No Hoarseness, No sore throat, No Rhinorrhea, No Swallowing Difficulty Eyes: No Eye Pain, No Swelling, No Redness, No Foreign Body, No Discharge, No Vision Changes Cardiovascular : No Chest Pain, No SOB, No Dyspnea on Exertion, No Orthopnea, No Edema, No Palpitations Respiratory : No Cough, No Sputum, No Wheezing, No Smoke Exposure, No Dyspnea Gastrointestinal : No Nausea, No Vomiting, complaining of Diarrhea, No Constipation, No abdominal Pain, No Hematochezia, No Melena Genitourinary : no irregular bleeding, No Dysuria, No Urinary Frequency, No Hematuria, No Urinary Incontinence, No Urgency, No Flank Pain, No Urinary Flow Changes, No Hesitancy Musculoskeletal : No joint pain, No Myalgias, No Joint Swelling Skin : No Skin Lesions, No rash Neuro : No Weakness, No Numbness, No Paresthesias, No Loss of Consciousness, No Dizziness, No Headache Psych : No Anxiety/Panic, No Depression, No SI/HI/AH/VH, No Social Issues, Heme/Lymph: No Bruising, No Bleeding,No Lymphadenopathy Endocrine : No Polyuria, No Polydipsia, No Temperature Intolerance PMFSH Past Medical History Medical History Opioid use disorder Cocaine use disorder Schizoaffective disorder, depressive type Social History Social History Household Members: None Housing: Other Housing Other:: [facility] temporary housing Do you presently have visiting nurse or other home services: No Patient Tobacco Use Status: Current someday Tobacco user Tobacco use type: Cigarette e-Cigarette/Vaping Use: Never Used Substance Use Type: Crack/Cocaine, Heroin, IV Drugs, Opiates and Prescription Drugs Advance Directives: No Advance Directives Information Provided: Yes Do you have a plan to hurt others: No Plan service: No Sexual orientation: Straight/Heterosexual Physical Exam ED Exam Exam: Appearance: Alert. Oriented X3. Patient looks uncomfortable, shaking his legs Eyes: Pupils equal, round and reactive to light. ENT: Pharynx normal. Neck: Normal inspection. Neck supple. No lymph nodes noted. No crepitus CVS: Normal heart rate and rhythm. Pulses normal. Normal S1 and S2 Respiratory: No respiratory distress. Breath sounds normal. No Wheezing. No rales Abdomen: Soft and nontender. No rigidity. No distention. Skin: Skin warm and dry. Normal skin color. Normal skin turgor. Extremities: No lower extremity edema. No Lacerations. No Rash Neuro: Oriented X 3. No motor deficit. No sensory deficit. Moving all extremities. No slurred speech. CN 2 through 12 grossly intact Psych: calm, cooperative, normal affect Vital Signs: Vital Signs - 24 hr 05/07/25 23:10 Temperature 97.8 F Pulse Rate 67 Respiratory Rate 18 Blood Pressure 122/63 Pulse Oximetry 97 Oxygen Delivery Method Room Air BMI result Body Mass Index 22.7 Course Course Course Narrative: Patient states that he has been withdrawing from methadone. Patient states that his insurance stopped working and no longer covering. He has new insurance we will start working in 5 days from today. Patient requesting a minimum dose of methadone today to help with the symptoms and medication for diarrhea. Patient declined blood work to rule out electrolyte abnormalities. Patient calm, cooperative but does look uncomfortable. I discussed with the patient that we can not give him at 1 time dose of methadone 30 mg. Patient agrees with plan Medical Decision Making Medical Decision Making MDM Narrative: Patient denies drinking alcohol or alcohol abuse. Differential Diagnosis Differential Diagnoses: The differential diagnosis associated with the presentation includes (Narcotic withdrawal, polysubstance abuse) Discharge Plan Discharge Clinical Impression: Methadone withdrawal, Diarrhea Patient Disposition: Home, Self-Care Instructions: Narcotic Withdrawal (ED) Additional Instructions: Please follow-up with your primary care physician tomorrow. If you have any worsening or new symptoms, please return to the emergency room or call 911 Opiate use disorder You were seen in our Emergency Department today for treatment of opiate use disorder. You may have been dosed with medication for opiate use disorder (MOUD) in the form of suboxone or methadone. You may experience feeling some withdrawal symptoms and this is normal. The? dose in the Emergency Department is a starting dose and meant to be titrated up once you follow up with a clinic. Please do not feel discouraged, it is a process. The nurse has reviewed with you where to follow up and what information to bring with you, to continue treatment. You also may have been given naloxone (narcan) to take home with you. This medication is used to potentially treat opiate overdose. If you decide you want to stop or cut down on how much you?re using, you can call or walk into our outpatient Addiction Treatment office: [facility] (M-F 9am-5p) [address] [place] [address], [phone] You may have been provided with safer injection?items, please take time to take care of YOU and your health. Use new supplies whenever possible to lessen the chances of infections and other illnesses.? ?If you need more supplies, please go [facility],? [address] [place], [place] you can call or text to coordinate delivery of safer supplies. You were also provided a list of several treatment providers in the area.? If you experience any worsening symptoms you cannot control please return to the ED or call 911. Please follow up at your next appointment. Things to look out for are fevers, chest pain, shortness of breath, severe pain, dizziness, fainting or any other concerns. Prescriptions: No Action methadone 10 mg Tablet 100 mg PO DAILY Patient Comments: Pt stated he thought he was receiving methadone while he was inpatient at [facility]. When this RN called [facility] they stated last dose was 01/14/24. Unable to get info if they were giving him his doses trazodone 50 mg Tablet 50 mg PO BEDTIME MRX1 PRN (Reason: Insomnia) Qty: 60 0RF folic acid 1 mg Tablet 1 mg PO DAILY Qty: 30 0RF multivitamin [Daily-Kylee] Tablet 1 tab PO DAILY Qty: 30 0RF thiamine mononitrate (vit B1) 100 mg Tablet 100 mg PO DAILY Qty: 30 0RF fluoxetine 40 mg capsule 40 mg PO QPM 30 Days Qty: 30 0RF famotidine 20 mg Tablet 20 mg PO BIDWM 30 Days Qty: 60 0RF olanzapine 20 mg tablet 20 mg PO DAILY 30 Days Qty: 30 0RF diazepam 5 mg tablet 5 mg PO DAILY PRN (Reason: anxiety) 30 Days Qty: 5 4RF Print Language: Armenian
[2025-05-08 01:00] VITALS: BP 116/71; PULSE 76; RESP 16; TEMP 36.6; O2SAT 97
--- NOTE | 2025-05-08 01:00 | PC.NURSE ---
ambulating steadily without assist or symptoms at d/c. food provided on request. states he wants to leave after receiving methadone
[2025-05-08] MEDS: methADONE HCl 20 MG/2 ML ORAL.CONC 30 MG PO (01:15)
[2025-05-08 01:35] VITALS: BP 116/71; PULSE 76; RESP 16; TEMP 36.6; O2SAT 97
== END 2025-05-08 01:40 | disposition home or self-care (01) ==
PROVIDERS: Emergency Provider Emergency Medicine
DX: F11.23 Opioid dependence with withdrawal (principal); R19.7 Diarrhea, unspecified; F25.1 Schizoaffective disorder, depressive type; F17.210 Nicotine dependence, cigarettes, uncomplicated
CPT/HCPCS: 99282; 99283

== ENCOUNTER 2025-07-01 14:26 | Emergency (ER) | payer MEDICARE, SELFPAY ==
[2025-07-01 14:59] VITALS: BP 117/65; PULSE 74; RESP 18; TEMP 36.3; O2SAT 98; BMI 24.6
--- NOTE | 2025-07-01 14:59 | ED_ITS ---
HPI - General Adult General Chief complaint: General Medical Stated complaint: facial swelling, infection? Related Data Home Medications ?Medication ?Instructions ?Recorded ?Confirmed methadone 10 mg tablet 100 mg PO DAILY 01/15/24 Previous Rx's ?Medication ?Instructions ?Recorded diazepam 5 mg tablet 5 mg PO DAILY PRN anxiety 30 days 03/10/24 #5 tabs famotidine 20 mg tablet 20 mg PO BIDWM 30 days #60 t abs 03/10/24 fluoxetine 40 mg capsule 40 mg PO QPM 30 days #30 cap s 03/10/24 folic acid 1 mg tablet 1 mg PO DAILY #30 tabs 03/10 multivitamin (Daily-Kylee tablet) 1 tab PO DAILY #30 ta bs 03/10/24 olanzapine 20 mg tablet 20 mg PO DAILY 30 days #30 t abs 03/10/24 thiamine mononitrate (vit B1) 100 100 mg PO DAILY #30 tabs 03/10/24 mg tablet trazodone 50 mg tablet 50 mg PO BEDTIME MRX1 PRN In somnia 03/10/24 #60 tabs Allergies Allergy/AdvReac Type Severity Reaction Status Date / Time No Known Allergies Allergy Verified 07/01/25 15:02 [facility] Past Medical History Medical History Opioid use disorder Cocaine use disorder Schizoaffective disorder, depressive type Social History Social History Household Members: None Housing: Other Housing Other:: [facility] temporary housing Do you presently have visiting nurse or other home services: No Patient Tobacco Use Status: Current someday Tobacco user Tobacco use type: Cigarette e-Cigarette/Vaping Use: Never Used Substance Use Type: Crack/Cocaine, Heroin, IV Drugs, Opiates and Prescription Drugs service: No Sexual orientation: Straight/Heterosexual Physical Exam ED Vital Signs: BMI result Body Mass Index 24.6 Course Course Course Narrative: This is a Rapid Medical Exam performed in triage by Faby Cassidy PA-C. Full HPI, ROS and PE to be performed by primary ED provider. 55 yo M w/pmhx schizoaffective d/o cocaine & opiate use d/o presenting to the ED c/o L sided facial swelling, pain & erythema x2 days PE: + left-sided facial erythema and swelling noted. + tenderness to left upper gums. + dentures Plan: Labs, CT Medical Decision Making Lab Data 07/01/25 15:54 07/01/25 15:54 Labs: Lab Results 07/01/25 Range/Units 15:54 WBC 8.8 (4.8-10.8) X10*3/uL RBC 5.21 (4.60-5.80) X10*6/uL Hgb 15.0 D (14.0-18.0) g/dl Hct 45.9 D (42.0-52.0) % MCV 88.1 (80.0-98.0) fL MCH 28.8 (27.0-33.0) pg MCHC 32.7 (31.0-36.0) g/dl RDW 13.2 (11.0-16.0) % Plt Count 151 L (160-400) X10*3/uL MPV 10.5 (9.4-12.4) fL Immature Gran % (Auto) 0.3 (0.0-0.4) % Neut % (Auto) 69.3 (45-73) % Lymph % (Auto) 22.2 (20-40) % Independence % (Auto) 7.0 (2-11) % Eos % (Auto) 0.9 (0-4) % Baso % (Auto) 0.3 (0-2) % Lymph # (Auto) 2.0 (1.2-4.9) X10*3/uL Independence # (Auto) 0.6 (0.1-1.2) X10*3/uL Eos # (Auto) 0.1 (0.0-0.4) X10*3/uL Baso # (Auto) 0.0 (0.0-0.2) X10*3/uL Abs Immat Gran (auto) 0.03 (0.00-0.03) X10*3/uL Absolute Neuts (auto) 6.1 (2.0-8.3) x10*3/uL Absolute Nucleated RBC 0.000 (0.0-0.012) X10*3/uL Nucleated RBC % (auto) 0.0 (0.0-0.2) /100WBC Smear Tech's Comments VERIFIED Sodium 138 (135-145) mmol/L Potassium 4.2 (3.3-5.1) mmol/L Chloride 104 (96-108) mmol/L Carbon Dioxide 22 (22-29) mmol/L Anion Gap 16 (12-20) BUN 13 (9-16) mg/dL Creatinine 1.02 (0.5-1.4) mg/dL Estim Creat Clear Calc 85.4 Estimated GFR > 60 Random Glucose 98 (60-115) mg/dL Calcium 9.8 (8.4-10.2) mg/dL Discharge Plan Discharge Clinical Impression: Facial swelling Patient Disposition: Left W/O Completing Treatment Prescriptions: No Action methadone 10 mg Tablet 100 mg PO DAILY Patient Comments: Pt stated he thought he was receiving methadone while he was inpatient at [facility]. When this RN called [facility] they stated last dose was 01/14/24. Unable to get info if they were giving him his doses trazodone 50 mg Tablet 50 mg PO BEDTIME MRX1 PRN (Reason: Insomnia) Qty: 60 0RF folic acid 1 mg Tablet 1 mg PO DAILY Qty: 30 0RF multivitamin [Daily-Kylee] Tablet 1 tab PO DAILY Qty: 30 0RF thiamine mononitrate (vit B1) 100 mg Tablet 100 mg PO DAILY Qty: 30 0RF fluoxetine 40 mg capsule 40 mg PO QPM 30 Days Qty: 30 0RF famotidine 20 mg Tablet 20 mg PO BIDWM 30 Days Qty: 60 0RF olanzapine 20 mg tablet 20 mg PO DAILY 30 Days Qty: 30 0RF diazepam 5 mg tablet 5 mg PO DAILY PRN (Reason: anxiety) 30 Days Qty: 5 4RF Discharge Date/Time: 07/01/25 20:01
[2025-07-01 16:17] LABS: Anion Gap 16 (12-20); Blood Urea Nitrogen 13 mg/dL (9-16); Calcium 9.8 mg/dL (8.4-10.2); Carbon Dioxide 22 mmol/L (22-29); Chloride 104 mmol/L (96-108); Creatinine Clr Calc Pharmacy 85.4; Estimated Glomerular Filt Rate > 60; Potassium 4.2 mmol/L (3.3-5.1); Sodium 138 mmol/L (135-145)
[2025-07-01 16:24] LABS: Hematocrit 45.9 % (42.0-52.0); Hemoglobin 15.0 g/dl (14.0-18.0); Imm Gran Abs Auto 0.03 X10*3/uL (0.00-0.03); Imm Gran Pct Auto 0.3 % (0.0-0.4); Lymphocytes Absolute Auto 2.0 X10*3/uL (1.2-4.9); MANUAL DIFF FLAG SCAN; Mean Corpuscular HGB Conc 32.7 g/dl (31.0-36.0); Mean Corpuscular Hemoglobin 28.8 pg (27.0-33.0); Mean Corpuscular Volume 88.1 fL (80.0-98.0); NRBC Abs Auto 0.000 X10*3/uL (0.0-0.012); NRBC Pct Auto 0.0 /100WBC (0.0-0.2); PLT CLUMP 1; Red Blood Count 5.21 X10*6/uL (4.60-5.80); SCAN SMEAR FLAG 1
[2025-07-01 16:25] LABS: White Blood Count 8.8 X10*3/uL (4.8-10.8)
[2025-07-01 16:28] LABS: Platelet Count 151 X10*3/uL (160-400)
--- OUTSIDE RECORDS SUMMARY | 2025-07-02 05:16 | XMS_ITS | Clinical Summary ---
Author Organization [employer] Address [address] [place] [address] Care Team Providers Care Qa Intern Name Role Phone Safia Raya MD Primary Care Provider + Allergies No known active allergies Medications * This document contains information received from the source organization and may not represent a complete record from that organization. buprenorphine ER (Sublocade) 300 mg/1.5mL injectionIndic ations:Opioid dependence on agonist therapy ([facility]) ([facility]) Inject 1.5 mL (1 each) under the skin every month to absorb continually . 1.5 mL 1 06/05/20 25 025 Active buprenorphine- naloxone (Suboxone) 4-1 MG per sublingual filmIndication s:Opioid dependence on agonist therapy ([facility]) ([facility]) Place 1 Film under the tongue 2 times daily for 7 days. 14 Film 06/05/20 25 Active FLUoxetine (PROzac) 40 MG capsule Take 1 capsule (40 mg) by mouth Once per day. 90 capsule 06/11/20 25 Active hydrOXYzine HCl (Atarax) 25 MG tablet Take 1 tablet (25 mg) by mouth every 12 (twelve) hours if needed for anxiety. 180 tablet 06/11/20 25 Active OLANZapine (ZyPREXA) 20 MG tablet Take 1 tablet (20 mg) by mouth at bedtime. 90 tablet 06/11/20 25 Active traZODone (Desyrel) 100 MG tablet Take 1 tablet (100 mg) by mouth if needed at bedtime for sleep. 90 tablet 06/11/20 25 Active diazePAM (Valium) 5 MG tablet Take 1 tablet (5 mg) by mouth if needed at bedtime for anxiety or sedation. 28 tablet 06/11/20 25 Active topiramate (Topamax) 25 MG tabletIndicati ons:Cocaine use 1 tablet PO at bedtime x 1 week, then 1 tablet PO BID 21 tablet 06/29/2025 2:36 PM EST 06/26/20 Active buprenorphine- naloxone (Suboxone) 4-1 MG per sublingual filmIndication s:Uncomplicate d opioid dependence ([facility]) ([facility]) Place 1 Film under the tongue 2 times daily for 7 days. 14 Film 05/27/20 25 025 Discontinued(Re order (will not trigger notification to Pharmacy)) buprenorphine ER (Sublocade) 300 mg/1.5mL injectionIndic ations:Opioid dependence on agonist therapy ([facility]) ([facility]) Inject 1.5 mL (1 each) under the skin every month to absorb continually . 1.5 mL 1 06/05/20 25 025 Discontinued buprenorphine ER (Sublocade) 300 mg/1.5mL injectionIndic ations:Opioid dependence on agonist therapy ([facility]) ([facility]) Inject 1.5 mL (1 each) under the skin every month to absorb continually . 1.5 mL 1 06/05/20 25 025 Discontinued diazePAM (Valium) 10 MG tablet Take 10 mg by mouth if needed. 08/21/19 025 Discontinued(Re order (will not trigger notification to Pharmacy)) FLUoxetine (PROzac) 40 MG capsule Take 1 capsule by mouth Once per day. 05/08/20 025 Discontinued(Re order (will not trigger notification to Pharmacy)) hydrOXYzine HCl (Atarax) 25 MG tablet Take 25 mg by mouth every 12 (twelve) hours if needed. 04/30/20 025 Discontinued(Re order (will not trigger notification to Pharmacy)) OLANZapine (ZyPREXA) 20 MG tablet Take 20 mg by mouth at bedtime. 05/01/20 025 Discontinued(Re order (will not trigger notification to Pharmacy)) traZODone (Desyrel) 100 MG tablet Take 100 mg by mouth if needed at bedtime. 05/08/20 025 Discontinued(Re order (will not trigger notification to Pharmacy)) Hospital, Clinic, or Other Facility Administered Medication Ordered Dose Route Frequency Start Date End Date Status buprenorphine ER (Sublocade) 300 mg/1.5mL injection 1 eachIndications:Opioid dependence on agonist therapy (CMS/HCC) ([facility]) 1 each SC Over 1 month 06/12/2025 06/12/2025 Ended Active Problems Problem Noted Date Diagnosed Date Chronic obstructive pulmonary disease 06/11/2025 Chronic back pain 06/11/2025 Lung field abnormal 06/11/2025 Assessment & Plan (06/11/2025 9:44 AM EDT): History of lung nodules, no mention by patient. Will obtain previous CXR or CT scan of the lungs and follow-up at next appointment. Mixed hyperlipidemia 06/11/2025 Major depressive disorder 06/11/2025 Assessment & Plan (06/11/2025 9:45 AM EDT): Seems to be more stable s/p hospital discharge 2 months ago. We discussed importance of avoiding recreational substance use that may trigger acute episode of psychosis, he will continue Suboxone and close follow-up with recovery coaches. Restart trazodone, olanzapine, fluoxetine and hydroxyzine as needed for anxiety. I will prescribe benzodiazepines for the next 3 months until his connected with a behavioral health prescriber, he is aware of the need for the CS agreement and rules and importance of avoiding recreational substance use. He declined influenza or COVID immunization today Uncomplicated opioid dependence (CMS/HCC) 2024 Assessment & Plan (06/11/2025 9:40 AM EDT): - Doing well on Suboxone, continue to follow-up with Suboxone providers. We discussed importance of avoiding other recreational substance use. - Order HIV, hepatitis and other STI testing. -Refer to for Rx of major depression Polysubstance abuse 06/11/2025 Assessment & Plan (06/11/2025 9:41 AM EDT): Has used cocaine on and off, reportedly few times per month. We discussed importance of avoiding recreational substance use and interference with CS agreement. Patient will continue to follow-up at the [facility] program, he is aware of the [facility] meetings, and that he can reach out to recovery coaches Referred to Chronic prescription benzodiazepine use 06/11/20 Assessment & Plan (06/11/2025 9:39 AM EDT): Prescribed by previous psychiatrist, I will continue prescription of diazepam 5 mg. Urine drug screening to be performed periodically for monitoring, he will be referred to [facility] program for Nurse to monitor medication adherence and pill count. Paranoid schizophrenia (CMS/HCC) 05/17/2015 Encounters * This document contains information received from the source organization and may not represent a complete record from that organization. Date Type Department Care Team Description 07/01/2025 Orders Only GENERIC EXTERNAL DATA DEPARTMENT Provider, Generic External Data 06/26/2025 9:30 AM EST Office Visit [address] [address] Subhash Ayala MD Opioid dependence on agonist therapy (CMS/HCC) (HCC) (Primary Dx); Cocaine use; Tobacco use 06/26/2025 Patient Outreach [address] [address] Andrea Stone Recovery Supp[facility] 06/26/2025 Travel 06/24/2025 Travel 06/24/[address] [address] Kasey Gamez RN WATCH ENGINEER Tier 06/19/2025 9:45 AM EST Office Visit [address] [address] Subhash Ayala MD Opioid dependence on agonist therapy (CMS/HCC) (HCC) (Primary Dx); Cocaine use; Tobacco use 06/19/2025 Travel 06/12/2025 10:30 AM EDT Clinical Support [address] [address] Naa Beth RN Opioid dependence on agonist therapy (CMS/HCC) (HCC) (Primary Dx); Cocaine use; Tobacco use 06/12/2025 Travel 06/12/[address] [address] Kasey Gamez, HO Schedule WATCH ENGINEER Initial appt 06/11/2025 9:15 AM EDT Office Visit [address] [address] Safia Raya MD Uncomplicated opioid dependence (CMS/HCC) (HCC) (Primary Dx); Polysubstance abuse (HCC); Chronic prescription benzodiazepine use; Severe episode of recurrent major depressive disorder, with psychotic features (CMS/HCC) (HCC); Lung field abnormal; Chronic bilateral low back pain without sciatica 06/11/2025 Telephone [facility] [address] [place] [address] Safia Raya MD 06/11/2025 Patient Outreach [facility] [address] [place] [address] Andrea Stone [facility] Supp[facility] 06/11/2025 Refill [facility] [address] [place] [address] Josefina Watson RN 06/11/2025 Travel 06/10/[address] [address] Safia Raya MD chart prep 06/05/2025 9:15 AM EDT Office Visit [facility] [address] [place] [address] Subhash Ayala MD Opioid dependence on agonist therapy (CMS/HCC) (HCC) (Primary Dx); Cocaine use; Uncomplicated opioid dependence (CMS/HCC) (HCC) 06/05/2025 Patient Outreach [facility] [address] [place] [phone] Kalyan Myers Recovery Supports 06/05/2025 Telephone [facility] [address] [place] [address] Josefina Watson RN 06/05/2025 Travel 06/04/2025 Patient Outreach [facility] [address] [place] [address] Safia Raya MD Pre-visit Planning (SDOH unable to reach M) 05/27/2025 Refill [facility] [address] [place] [address] Josefina Watson RN Uncomplicated opioid dependence (CMS/HCC) (HCC) 05/27/2025 Refill [facility] [address] [place] [phone] Josefina Watson RN 05/27/[address] [address] Geovany Diaz MD 05/26/2025 9:45 AM EDT Clinical Support [address] [address] Josefina Watson RN Uncomplicated opioid dependence (CMS/HCC) (HCC) (Primary Dx) 05/26/2025 Patient Outreach [address] [address] Jenna Red 05/26/2025 Travel 05/21/2025 Patient Outreach [address] [address] Andrea Stone [facility] 05/21/2025 Patient Outreach [address] [address] Daniel Lindsey Recovery Supports 05/19/2025 10:30 AM EDT Office Visit [address] [address] Subhash Ayala MD Uncomplicated opioid dependence (CMS/HCC) (HCC) (Primary Dx); Cocaine use 05/19/2025 Patient Outreach [address] [address] Kalyan Myers Recovery Supports 05/19/2025 Travel 05/18/2025 Patient Outreach [address] [address] Daniel Lindsey [facility] 05/15/2025 10:45 AM EDT Office Visit [address] [address] Subhash Ayala MD Uncomplicated opioid dependence (CMS/HCC) (HCC) (Primary Dx); Cocaine use 05/15/2025 Travel 05/15/2025 Patient Outreach [address] [address] Daniel Lindsey [facility] 05/13/2025 11:30 AM EDT Office Visit [address] [address] Subhash Ayala MD Opioid type dependence, continuous (CMS/HCC) (HCC) (Primary Dx) 05/13/2025 11:00 AM EDT Office Visit [facility] [address] [place] [address] Josefina Watson RN Uncomplicated opioid dependence ([facility]) (HCC) 05/13/2025 Travel 05/11/2025 Patient Outreach [facility] [address] [place] [address] Jenna Red Recovery Supports 05/08/2025 Patient Outreach [facility] [address] [place] [address] Daniel Lindsey Recovery Supports 05/04/2025 Patient Outreach [address] [address] Andrea Stone [facility] Supp[facility] 04/29/2025 Patient Outreach [facility] [address] [place] [address] Daniel Lindsey [facility] Supp[facility] 04/27/2025 Patient Outreach [address] [address] Jenna Red Recovery Supports from Last 3 Months Immunizations Immunization Administration Dates Next Due Influenza, IIV3, injectable 09/19/2018,1 ,05/17/2015,06/26/20 14,06/30/2013,04/21/2012 Pneumococcal Conjugate PCV 13 07/23/2015 Pneumococcal Polysaccharide PPSV23 04/21/2012 Td (adult), unspecified 08/16/2009 Tdap 07/23/2015 Social History Tobacco Use Types Packs/Day Years Used Date Smoking Tobacco: Never Smokeless Tobacco: Never Tobacco Cessation:Counseling Given: Not Answered Alcohol Use Standard Drinks/Week Comments Never 0 (1 standard drink = 0.6 oz pur e alcohol) Depression Answer Date Recorded Patient Health Questionnaire-9 Score 1 05/26/2025 Patient Health Questionnaire-9 Score 1 05/26/2025 Last PHQ-9: Questionnaire Data Not on file 1 Housing Stability Answer Date Recorded What is your housing situation today? I have demetri santamaria 05/26/[address] you li ve. Do you have problems with any of the following? None of the above 05/26/2025 Food Insecurity Answer Date Recorded Within the past 12 months, y ou worried that your food would run out before you got money to buy more: Sometimes True 2024 Within the past 12 months,th e food you bought just didn't last and you didn't have enough money to get more: Sometimes True 05/26/2025 Transportation Answer Date Recorded In the past 12 months, has l ack of transportation kept you from medical appts, meetings, work or from getting things needed for daily living? No 05/26/2025 Utilities Answer Date Recorded In the past 12 months, has t he [employer], gas, oil or water company threatened to shut off services in your home? No 05/26/2025 Depression Answer Date Recorded Patient Health Questionnaire-2 Score 0 05/26/2025 Internet Access Answer Date Recorded Internet Access Q1 Yes 05/26/2025 Internet Access Q2 Not on file 05/26/2025 Sex and Gender Information Value Date Recorded Sex Assigned at Male 06/12/2022 10:27 AM EDT Legal Sex Male 10:27 AM EDT Gender Identity Choose not to disclose 10:27 AM EDT Sexual Orientation Choose not to disclose 2021 10:27 AM EDT Last Filed Vital Signs Vital Sign Reading Time Taken Comments Blood Pressure 110/52 06/11/2025 8:54 AM EDT Pulse 73 06/11/2025 8:54 AM EDT Temperature 36.4 C (97.5 F) 06/11/2025 8:54 AM EDT Respiratory Rate 14 06/11/2025 8:54 AM EDT Oxygen Saturation 97% 06/11/2025 8:54 AM EDT Inhaled Oxygen Concentration - - Weight 76.7 kg (169 lb) 06/11/2025 8:54 AM EDT Height 177 cm (5' 9.69 ) 06/11/2025 8:54 AM EDT Body Mass Index 24.47 06/11/2025 8:54 AM EDT Plan of Treatment Upcoming Encounters Date Type Department Care Team (Late st Contact Info) Description 07/03/2025 10:00 AM EST Office Visit [facility] [address] [place] [address] Subhash Ayala MD [address] [place], [place] [phone] 07/06/2025 1:30 PM EST Clinical Support [address] [address] Kasey Gamez, HO 07/07/2025 9:00 AM EST Clinical Support [address] [address] Naa Beth, HO 07/17/2025 10:15 AM EST Clinical Support [address] [address] Naa Beth, HO 08/20/2025 12:00 PM EST Office Visit [address] [address] Safia Raya MD [address] [place] [address] Health Maintenance Due Date Last Done Comments CT Colonography 1971 Colonoscopy 1971 Colorectal Cancer Screening 1971 FIT DNA/Cologuard 1971 FIT 1971 FOBT 1971 HIV Screening 1971 Lipid Panel 1971 Sigmoidoscopy 1971 Hepatitis C Screening 1989 Hepatitis B Vaccines (1 of 3 - 19+ 3-dose series) 1990 Pneumococcal Vaccine: 50+ Years (3 of 3 - PCV20 or PCV21) 2021 07/23/2015, 04/21/2012 RSV Patients and Patients Aged 60 years or older (1 - Risk 50-74 years 1-dose series) 2021 Zoster Vaccines (1 of 2) 2021 COVID-19 Vaccine (1 - season) 2025 Influenza Vaccine (#1) 2025 9, 05/13/2016, 05/17/2015, Additional history exists DTaP/Tdap/Td Vaccines (2 - Td or Tdap) 07/23/2025 07/23/2015, 08/16/2009 Alcohol/Substance Use Screening 05/26/2026 05/26/2025 Depression Screening 05/26/2026 05/26/2025, 05/26/20 25 SDOH Screening 05/26/2026 05/26/2025 Disability Screening 06/11/2026 06/11/2025 Tobacco Screening 06/11/2026 06/11/2025 HIB Vaccines Aged Out No longer eligi [...] on patient's age to complete this topic Goals Goal Patient Goal Type Associated Problems Recent Progress Patient-Stated? Author Decrease the frequency of unwanted emotions so that daily functioning is improved General No Naa Beth, ranger aide Procedure Name Priority Date/Time Associated Diagnosis Comments SLIDE REVIEW Routine 07/01/2025 3:54 PM EST CBC WITH AUTO DIFFERENTIAL Routine 07/01/2025 3:54 PM EST BASIC METABOLIC PANEL Routine 07/01/2025 3:54 PM EST POCT TOMI-14 URINE DRUG SCREEN Routine 06/26/2025 9:51 AM EST Opioid dependence on agonist therapy (CMS/HCC) (HCC) POCT TOMI-14 URINE DRUG SCREEN Routine 06/12/2025 10:28 AM EDT Opioid dependence on agonist therapy (CMS/HCC) (HCC) POCT TOMI-14 URINE DRUG SCREEN Routine 06/05/2025 8:59 AM EDT Opioid dependence on agonist therapy (CMS/HCC) (HCC) POCT TOMI-14 URINE DRUG SCREEN Routine 05/26/2025 9:54 AM EDT Uncomplicated opioid dependence (CMS/HCC) (HCC) POCT TOMI-14 URINE DRUG SCREEN Routine 05/19/2025 10:06 AM EDT Uncomplicated opioid dependence (CMS/HCC) (HCC) POCT TOMI-14 URINE DRUG SCREEN Routine 05/15/2025 11:33 AM EDT Uncomplicated opioid dependence (CMS/HCC) (HCC) POCT TOMI-14 URINE DRUG SCREEN Routine 05/13/2025 12:24 PM EDT Opioid type dependence, continuous (CMS/HCC) (HCC) from Last 3 Months Results * Slide Review (07/01/2025 3:54 PM EST) Slide Review VERIFIED [facility] 07/01/2025 3:54 PM EST 07/01/2025 3:57 PM EST us Generic External Data Provider LAB BLOOD ORDERAB LES Final Result [facility] [address] [place] [phone] * (ABNORMAL) CBC auto differential (07/01/2025 3:54 PM EST) White Blood Count 8.8 4.8 - 10.8 X10*3/uL [facility] Red Blood Count 5.21 4.60 - 5.80 X10*6/uL [facility] Hemoglobin 15.0 14.0 - 18.0 g/dl [facility] Hematocrit 45.9 42.0 - 52.0 % [facility] Mean Corpuscular Volume 88.1 80.0 - 98.0 fL [facility] Mean Corpuscular Hemoglobin 28.8 27.0 - 33.0 pg [facility] Mean Corpuscular HGB Conc 32.7 31.0 - 36.0 g/dl [facility] Red Cell Distribution Width 13.2 11.0 - 16.0 % [facility] Platelet Count 151(L) 160 - 400 X10*3/uL [facility] Mean Platelet Volume 10.5 9.4 - 12.4 fL [facility] Neutrophils Percent Auto 69.3 45 - 73 % [facility] Imm Gran Pct Auto 0.3 0.0 - 0.4 % [facility] Lymphocytes Percent Auto 22.2 20 - 40 % [facility] Monocytes Percent Auto 7.0 2 - 11 % [facility] Eosinophils Percent Auto 0.9 0 - 4 % [facility] Basophils Percent Auto 0.3 0 - 2 % [facility] NRBC Pct Auto 0.0 0.0 - 0.2 /100WBC [facility] Neutrophils Absolute Auto 6.1 2.0 - 8.3 x10*3/uL [facility] Imm Gran Abs Auto 0.03 0.00 - 0.03 X10*3/uL [facility] Lymphocytes Absolute Auto 2.0 1.2 - 4.9 X10*3/uL [facility] Monocytes Absolute Auto 0.6 0.1 - 1.2 X10*3/uL [facility] Eosinophils Absolute Auto 0.1 0.0 - 0.4 X10*3/uL [facility] Basophils Absolute Auto 0.0 0.0 - 0.2 X10*3/uL [facility] NRBC Abs Auto 0.000 0.0 - 0.012 X10*3/uL [facility] 07/01/2025 3:54 PM EST 07/01/2025 3:57 PM EST us Generic External Data Provider LAB BLOOD ORDERAB LES Edited Result - Final [facility] [address] [place] [phone] * Basic Metabolic Panel (07/01/2025 3:54 PM EST) Sodium 138 135 - 145 mmol/L [facility] Potassium 4.2 3.3 - 5.1 mmol/L [facility] Comment:Slight Hemolysis.Int erpret result with caution. Chloride 104 96 - 108 mmol/L [facility] Carbon Dioxide 22 22 - 29 mmol/L [facility] Anion Gap 16 12 - 20 [facility] Urea Nitrogen (BUN) 13 9 - 16 mg/dL [facility] Creatinine, Serum 1.02 0.5 - 1.4 mg/dL [facility] Creatinine Clr Calc Pharmacy 85.4 [facility] Comment:eGFR (calculated fro m the MDRD study equation) and eCrCl(calculated from the Cockcroft-Gault equation) are based ondifferent parameters and may not yield comparable results.If eCrCl result is absurd, please check patient'sheight/weight. Estimated Glomerular Filt Rate >60 [facility] Comment:Chronic Kidney Disea se: Estimated GFR < 60 mL/min/[id number] Kidney Disease: Estimated GFR < 15 mL/min/1.73m2 Glucose 98 60 - 115 mg/dL [facility] Calcium 9.8 8.4 - 10.2 mg/dL [facility] 07/01/2025 3:54 PM EST 07/01/2025 3:57 PM EST us Generic External Data Provider LAB BLOOD ORDERAB LES Final Result [facility] [address] [place] [phone] * (ABNORMAL) POCT TOMI-14 Urine Drug Screen (06/26/2025 9:51 AM EST) Only the most recent of7 resultswithin the time period is included. THC Negative Negative Cocaine Screen, Urine Positive(A) Negative Opiate Screen, Urine Negative Negative Methamphetamine Screen Urine Negative Negative Amphetamine Screen, Urine Negative Negative Benzodiazepines Screen, Urine Negative Negative Barbiturate Screen, Urine Negative Negative Methadone Screen, Urine Negative Negative Buprenophine Screen, Urine Positive(A) Negative TCA, Urine Negative Negative MDMA Urine Negative Negative ng/mL Oxycodone Screen, Urine Negative Negative Phencyclidine (PCP), Urine Negative Negative Fentanyl, Urine Negative Negative Urine Urine specimen obtained by clean catch procedure / Unknown 06/26/2025 9:51 AM EST Subhash Ayala MD POINT OF CARE TEST ENTER/EDIT ORDERABLES Final Result from Last 3 Months Insurance [facility] < 65 Care Teams Qa Intern Relationship Specialty Start Date End Date Safia Raya MD [address] [place] [phone] PCP - General Internal Medicine 06/11/25
--- OUTSIDE RECORDS SUMMARY | 2025-07-02 05:16 | XMS_ITS | Encounter Summary ---
Author Organization [employer] Address [address] [place] [address] Care Team Providers Care Riddler Operator Name Role Phone Safia Raya MD Primary Care Provider + Encounter Details Date Type Department Care Team ([facility] st Contact Info) Description 07/01/2025 Orders Only GENERIC EXTERNAL DATA DEPARTMENT Provider, Generic External Data Social History Tobacco Use Types Packs/Day Years Used Date Smoking Tobacco: Never Smokeless Tobacco: Never Alcohol Use Standard Drinks/Week Comments Never 0 [...] the past 12 months, has t he electric, gas, oil or water company threatened to [...] AM EDT documented as of this encounter Plan of Treatment Upcoming Encounters Date Type Department Care Team (Late st Contact Info) Description 07/03/2025 10:00 AM EST Office Visit [address] [address] Subhash Ayala MD [address] [place] [phone] 07/06/2025 1:30 PM EST Clinical Support [address] [address] Kasey Gamez RN 07/07/2025 9:00 AM EST Clinical Support [address] [address] Naa Beth, HO 07/17/2025 10:15 AM EST Clinical Support [address] [address] Naa Beth, RN 08/20/2025 12:00 PM EST Office Visit [address] [address] Safia Raya MD [address] [place] [phone] documented as of this encounter Goals Goal Patient Goal Type Associated Problems Recent Progress Patient-Stated? Author Decrease the frequency of unwanted emotions so that daily functioning is improved General No Naa Beth, RN documented as of this encounter Procedures Procedure Name Priority Date/Time Associated Diagnosis Comments SLIDE REVIEW Routine 07/01/2025 3:54 PM EST CBC WITH AUTO DIFFERENTIAL Routine 07/01/2025 3:54 PM EST BASIC METABOLIC PANEL Routine 07/01/2025 3:54 PM EST documented in this encounter Results * Slide Review (07/01/2025 3:54 PM EST) Slide Review VERIFIED [facility] 07/01/2025 3:54 PM EST 07/01/2025 3:57 PM EST us Generic External Data Provider LAB BLOOD ORDERAB LES Final Result [facility] [address] [place] [phone] * (ABNORMAL) CBC auto differential (07/01/2025 3:54 PM EST) White Blood Count 8.8 4.8 - 10.8 X10*3/uL [facility] Red Blood Count 5.21 4.60 - 5.80 X10*6/uL [facility] Hemoglobin 15.0 14.0 - 18.0 g/dl [facility] Hematocrit 45.9 42.0 - 52.0 % [facility] Mean Corpuscular Volume 88.1 80.0 - 98.0 fL [facility] Mean Corpuscular Hemoglobin 28.8 27.0 - 33.0 pg [facility] Mean Corpuscular HGB Conc 32.7 31.0 - 36.0 g/dl [facility] Red Cell Distribution Width 13.2 11.0 - 16.0 % [facility] Platelet Count 151(L) 160 - 400 X10*3/uL [facility] Mean Platelet Volume 10.5 9.4 - 12.4 fL [facility] Neutrophils Percent Auto 69.3 45 - 73 % [facility] Imm Gran Pct Auto 0.3 0.0 - 0.4 % [facility] Lymphocytes Percent Auto 22.2 20 - 40 % [facility] Monocytes Percent Auto 7.0 2 - 11 % [facility] Eosinophils Percent Auto 0.9 0 - 4 % [facility] Basophils Percent Auto 0.3 0 - 2 % [facility] NRBC Pct Auto 0.0 0.0 - 0.2 /100WBC [facility] Neutrophils Absolute Auto 6.1 2.0 - 8.3 x10*3/uL [facility] Imm Gran Abs Auto 0.03 0.00 - 0.03 X10*3/uL [facility] Lymphocytes Absolute Auto 2.0 1.2 - 4.9 X10*3/uL [facility] Monocytes Absolute Auto 0.6 0.1 - 1.2 X10*3/uL [facility] Eosinophils Absolute Auto 0.1 0.0 - 0.4 X10*3/uL [facility] Basophils Absolute Auto 0.0 0.0 - 0.2 X10*3/uL [facility] NRBC Abs Auto 0.000 0.0 - 0.012 X10*3/uL [facility] 07/01/2025 3:54 PM EST 07/01/2025 3:57 PM EST us Generic External Data Provider LAB BLOOD ORDERAB LES Edited Result - Final [facility] [address] [place] [phone] * Basic Metabolic Panel (07/01/2025 3:54 PM EST) Sodium 138 135 - 145 mmol/L [facility] Potassium 4.2 3.3 - 5.1 mmol/L [facility] Comment:Slight Hemolysis.Int erpret result with caution. Chloride 104 96 - 108 mmol/L [facility] Carbon Dioxide 22 22 - 29 mmol/L [facility] Anion Gap 16 12 - 20 [facility] Urea Nitrogen (BUN) 13 9 - 16 mg/dL [facility] Creatinine, Serum 1.02 0.5 - 1.4 mg/dL [facility] Creatinine Clr Calc Pharmacy 85.4 [facility] Comment:eGFR (calculated fro m the MDRD study equation) and eCrCl(calculated from the Cockcroft-Gault equation) are based ondifferent parameters and may not yield comparable results.If eCrCl result is absurd, please check patient'sheight/weight. Estimated Glomerular Filt Rate >60 [facility] Comment:Chronic Kidney Disea se: Estimated GFR < 60 mL/min/[id number] Kidney Disease: Estimated GFR < 15 mL/min/1.73m2 Glucose 98 60 - 115 mg/dL [facility] Calcium 9.8 8.4 - 10.2 mg/dL [facility] 07/01/2025 3:54 PM EST 07/01/2025 3:57 PM EST us Generic External Data Provider LAB BLOOD ORDERAB LES Final Result Performing Organization Address City/State/[facility] Co de Phone Number [facility] [address] [place] [phone] documented in this encounter Visit Diagnoses Not on filedocumented in this encounter Additional Health Concerns Assessment Noted Time PHQ-9 Depression Total Score: 1 05/26/20 9:57 AM EDT documented as of this encounter Care Teams Riddler Operator Relationship Specialty Start Date End Date Safia Raya MD [address] [place] [phone] PCP - General Internal Medicine 06/11/25 documented as of this encounter
--- OUTSIDE RECORDS SUMMARY | 2025-07-02 05:16 | XMS_ITS | Encounter Summary ---
Author Organization [employer] Address [address] [place] [address] Care Team Providers Care Pearl Peller Name Role Phone Safia Raya MD Primary Care Provider + Reason for Visit * Reason Onset Date Comments PHYSICIAN PRACTICE MARKET MANAGER Tier 06/24/2025 Encounter Details Date Type Department Care Team ([facility] st Contact Info) Description 06/24/2025 Telephone [facility] [address] [place] [address] Kasey Gamez RN PHYSICIAN PRACTICE MARKET MANAGER Tier Social History Tobacco Use Types Packs/Day Years [...] AM EDT documented as of this encounter Miscellaneous Notes * Telephone Encounter - Safia Raya MD - 06/30/2025 9:26 AM EST Regarding benzo prescription, he should be on PHYSICIAN PRACTICE MARKET MANAGER tier 1 visits. I had referred him to behavioral health for further prescription of controlled substances, and the note and mentioned that I plan to continue prescription for the next 3 months and then reevaluate about the status of these mental health appointment is at. I do not plan to give him diazepam in the long-term * Telephone Encounter - Kasey Gamez RN - 06/24/2025 8:16 AM EST What PHYSICIAN PRACTICE MARKET MANAGER Tier would you like this patient to be? Tier 1 = HIGH RISK, Monthly PHYSICIAN PRACTICE MARKET MANAGER visits Tier 2 = MODerate RISK, Q3 Month visits Tier 3 = LOW RISK = Q4-6 month visits documented in this encounter Plan of Treatment Upcoming Encounters Date Type Department Care Team (Late st Contact Info) Description 07/03/2025 10:00 AM EST Office Visit [address] [address] Subhash Ayala MD [address] [place] [phone] 07/06/2025 1:30 PM EST Clinical Support [address] [address] Kasey Gamez RN 07/07/2025 9:00 AM EST Clinical Support [address] [address] Naa Beth RN 07/17/2025 10:15 AM EST Clinical Support [address] [address] Naa Beth RN 08/20/2025 12:00 PM EST Office Visit [address] [address] Safia Raya MD [address] [place] [phone] documented as of this encounter Goals Goal Patient Goal Type Associated Problems Recent Progress Patient-Stated? Author Decrease the frequency of unwanted emotions so that daily functioning is improved General No Naa Beth RN documented as of this encounter Visit Diagnoses Not on filedocumented in this encounter Additional Health Concerns Assessment Noted Time PHQ-9 Depression Total Score: 1 05/26/20 9:57 AM EDT documented as of this encounter Care Teams Pearl Peller Relationship Specialty Start Date End Date Safia Raya MD [address] [place] [phone] PCP - General Internal Medicine 06/11/25 documented as of this encounter
== END 2025-07-01 20:01 | disposition left against medical advice (07) ==
LOC: HO.ED 19:59
PROVIDERS: Physician Assistant; Emergency Provider Emergency Medicine
DX: R22.0 Localized swelling, mass and lump, head (principal); Z53.29 Procedure and treatment not carried out because of patient's decision for other reasons; F25.9 Schizoaffective disorder, unspecified; F17.200 Nicotine dependence, unspecified, uncomplicated
CPT/HCPCS: 36415; 80048; 85025; 99281; 99283